=== PATIENT | female | born 1980 | race Caucasian/White ===

== ENCOUNTER 2020-02-02 14:57 | Outpatient (CLI) | payer OTHER, SELFPAY ==
--- NOTE | 2020-02-02 15:01 | ECG_ITS ---
Measurements Intervals [place] Rate: 92 P: 9 AK: 159 QRS: 19 QRSD: 85 T: 28 QT: 333 QTc: 412 Interpretive Statements SINUS RHYTHM LOW QRS VOLTAGE IN PRECORDIAL LEADS BORDERLINE T WAVE ABNORMALITY- ANT/INF LEADS BORDERLINE ECG Electronically Signed On 02-02-2020 15:27:16 [employer]IGHT HOUSEPERSON by Rigoberto Mansfield D.O.
[2020-02-02 15:41] LABS: Anion Gap 8 mmol/L (8-16); Blood Urea Nitrogen 10 mg/dL (7-17); Calcium 9.1 mg/dL (8.4-10.2); Carbon Dioxide 29 mmol/L (22-30); Chloride 102 mmol/L (98-107); Estimated Glomerular Filt Rate > 60; Glucose 118 mg/dL (65-105); Potassium 3.8 mmol/L (3.4-5.0); Sodium 139 mmol/L (137-145)
== END 2020-02-02 14:58 | disposition home or self-care (01) ==
LOC: ANHSURGERY 15:01
PROVIDERS: Anesthesiology; PCP Physician Assistant; Visit Provider Obstetrics & Gynecology Gynecology
DX: E11.9 Type 2 diabetes mellitus without complications (principal); F17.210 Nicotine dependence, cigarettes, uncomplicated; Z01.818 Encounter for other preprocedural examination; R94.31 Abnormal electrocardiogram [ECG] [EKG]
CPT/HCPCS: 36415; 80048; 93005

== ENCOUNTER 2020-02-06 00:53 | Outpatient (CLI) | payer OTHER, SELFPAY ==
[2020-02-06 18:38] LABS: SARS-CoV-2 RNA PCR Negative
== END 2020-02-06 00:54 | disposition home or self-care (01) ==
LOC: ANHCOVIDDT 00:53
PROVIDERS: PCP Physician Assistant; Visit Provider Obstetrics & Gynecology Gynecology
DX: Z01.818 Encounter for other preprocedural examination (principal); Z20.828 Contact with and (suspected) exposure to other viral communicable diseases
CPT/HCPCS: C9803; U0003

== ENCOUNTER 2020-02-09 10:37 | Inpatient (IN) | payer OTHER, SELFPAY ==
[2020-01-27 09:37] VITALS: BMI 47.0
[2020-02-09] VITALS (23 sets, daily range): BP systolic 103–154; BP diastolic 52–89; PULSE 61–106; RESP 12–25; TEMP 36.4–37.1; O2SAT 94–100; BMI 47.6
[2020-02-09] MEDS: KETOROLAC 15 MG/ML VIAL (*BKC) IV PUSH (06:37)
[2020-02-09] MEDS: ACETAMINOPHEN 500 MG TABLET 1000 MG PO (06:37)
[2020-02-09 06:42] LABS: Glucose Point of Care 107 (65-105)
[2020-02-09] MEDS: LACTATED RINGERS 1,000 ML 30 ML IV CONT ×2 (06:49→09:19)
--- NOTE | 2020-02-09 06:53 | WPDANESEPPF ---
Anes - Initial Pre Proc Eval Procedure: Operation Date: 02/09/20 09:00 Proposed Procedures p Diagnostic Laparoscopy, Possible Right Salpingo-Oophorectomy - Mirtha Vargas MD Date/Time: 02/09/20 06:53 Surgeon: Mirtha Vargas MD Pre Op Diagnosis: Right Ovarian Cyst Patient Data Age: 39 Gender: F Height: 5 ft 7 in Weight: 138 kg Last Vital Signs Temp 36.6 C 02/09/20 06:14 Pulse 83 02/09/20 06:14 Resp 18 02/09/20 06:14 BP 128/67 02/09/20 06:14 Pulse Ox 96 02/09/20 06:14 Allergies Allergy/AdvReac Type Severity Reaction Status Date / Time doxycycline Allergy Severe Hives Verified 01/27/20 09:23 amoxicillin [From Augmentin] Allergy Vomiting Verified 02/09/20 06:11 clavulanic acid Allergy Vomiting Verified 02/09/20 06:11 [From Augmentin] Sulfa (Sulfonamide Allergy Vomiting Verified 02/09/20 06:11 Antibiotics) Home Medications Medication Instructions Recorded Confirmed Type acetaminophen-codeine 1 tablet PO Q6H PRN 01/27/20 02/09/20 History ergocalciferol (vitamin D2) 1,250 mcg PO WEEKLY 01/27/20 02/09/20 History fiber 1 cap PO DAILY 01/27/20 02/09/20 History meloxicam 15 mg PO DAILY PRN 01/27/20 02/09/20 History metformin 500 mg PO DAILY 01/27/20 02/09/20 History montelukast 10 mg PO DAILY 01/27/20 02/09/20 History multivitamin 1 tablet PO DAILY 01/27/20 02/09/20 History omega-3 fatty acids [Fish Oil] 2,000 mg PO DAILY 01/27/20 02/09/20 History omeprazole 20 mg PO DAILY 01/27/20 02/09/20 History sertraline 150 mg PO DAILY 01/27/20 02/09/20 History Laboratory Tests 02/09/20 06:37 POC Capillary Glucose 107 mg/dl mg/dl (65-105) Patient hx anesthesia problems: none Family hx anesthesia problems: none PMFSH Past Medical History Medical History (Updated 02/09/20 @ 06:53 by Bryan Ma MD) Morbid obesity Surgical History Surgical History (Updated 02/09/20 @ 06:54 by Byran Ma MD) History of cholecystectomy Family History Family History Grandparent Family history of malignant melanoma Diabetes mellitus Sibling Family history of multiple sclerosis Father Family history of migraine headaches Hypertension Mother Family history of migraine headaches Family history of gastrointestinal disorder Social History Social History Smoking packs per day: 1.5 Smoking cigarettes per day: 30.0 Years smoked: 15 Smoking pack-years: 22.50 Smoking status: Former smoker Smoking end date: 01/26/14 Alcohol intake: never Living arrangements: with family Spiritual care concerns: No Anes - Eval Final PreProcedure Day of Procedure 02/09/20 06:53 Patient weight: morbidly obese Heart: regular rate and rhythm Lungs: clear to auscultation Airway: Mallampati scale class II Neurological: alert and oriented Last oral intake: >/= 8 hours ASA classification: III Emergent: no Anesthetic plan: proceed Anesthesia type and monitoring: general ETT and standard monitoring Informed Consent: The patient's anesthetic plan and its attendant risks and benefits were discussed with the patient/family/POA. Questions were solicited and answers provided to the satisfaction of the patient/family/POA.
--- NOTE | 2020-02-09 07:13 | PM.HPGS ---
History of Present Illness History of Present Illness Consent: Risks, benefits, and alternatives have been discussed and questions answered. Patient agrees to proceed with procedure. Chief complaint: Right Ovarian Cyst Narrative: Linda Howard is a 39 year old female with right ovarian cyst. Pain has persisted and by u/s cyst has increased slightly to 8.1x7x4.8 cm. Suspect endometrioma per the u/s findings. Reviewed options with patient and plan to proceed with laparoscopic management of cyst. D/w patient that no normal ovary is measured in the u/s and most likely will be performing right salpingo-oophorectomy. Risks of infection, bleeding, injury to internal organs (eg. bowel, bladder, ureters, tubes, uterus, ovaries), DVT, and general anesthesia discussed. Reviewed possible need for exploratory laparotomy if unable to safely do case laparoscopically. Patient questions answered and agrees to proceed. [facility] Past Medical History Medical History (Updated 02/09/20 @ 07:21 by Mirtha Vargas MD) Borderline diabetes mellitus Depression Elevated cholesterol GERD (gastroesophageal reflux disease) IBS (irritable bowel syndrome) Kidney stone Morbid obesity Surgical History Surgical History (Updated 02/09/20 @ 07:18 by Mirtha Vargas MD) History of cholecystectomy S/P LEEP Status post carpal tunnel release of both wrists Family History Family History Grandparent Family history of malignant melanoma Diabetes mellitus Sibling Family history of multiple sclerosis Father Family history of migraine headaches Hypertension Mother Family history of migraine headaches Family history of gastrointestinal disorder Social History Social History Smoking packs per day: 1.5 Smoking cigarettes per day: 30.0 Years smoked: 15 Smoking pack-years: 22.50 Smoking status: Former smoker Smoking end date: 01/26/14 Alcohol intake: never Living arrangements: with family Spiritual care concerns: No Meds Home Medications and Allergies Home Medications Medication Instructions Recorded Confirmed Type acetaminophen-codeine 1 tablet PO Q6H PRN 01/27/20 02/09/20 History ergocalciferol (vitamin D2) 1,250 mcg PO WEEKLY 01/27/20 02/09/20 History fiber 1 cap PO DAILY 01/27/20 02/09/20 History meloxicam 15 mg PO DAILY PRN 01/27/20 02/09/20 History metformin 500 mg PO DAILY 01/27/20 02/09/20 History montelukast 10 mg PO DAILY 01/27/20 02/09/20 History multivitamin 1 tablet PO DAILY 01/27/20 02/09/20 History omega-3 fatty acids [Fish Oil] 2,000 mg PO DAILY 01/27/20 02/09/20 History omeprazole 20 mg PO DAILY 01/27/20 02/09/20 History sertraline 150 mg PO DAILY 01/27/20 02/09/20 History Allergies Allergy/AdvReac Type Severity Reaction Status Date / Time doxycycline Allergy Severe Hives Verified 01/27/20 09:23 amoxicillin [From Augmentin] Allergy Vomiting Verified 02/09/20 06:11 clavulanic acid Allergy Vomiting Verified 02/09/20 06:11 [From Augmentin] Sulfa (Sulfonamide Allergy Vomiting Verified 02/09/20 06:11 Antibiotics) Vital Signs Vital Signs - 24 hr 02/09/20 06:14 Temperature 97.8 F Pulse Rate 83 Respiratory Rate 18 Blood Pressure 128/67 Pulse Oximetry 96 Exam Narrative: Exam Narrative: wt. 304 pounds Const: Nutritional Appearance: obese Resp: Effort & Inspection: normal respiratory effort Auscultation: clear to auscultation bilaterally Cardio: Rate: regular rate Rhythm: regular rhythm GI: Inspection: obesity GI Palp: Yes abdominal tenderness and Yes Soft to palpation : External Female Exam: normal external appearance Speculum Exam - Vagina: normal appearance of the vagina Speculum Exam - Cervix: normal appearance of the cervix Bimanual Exam- Adnexa, other: tender Assessment and Plan Assessment and plan (1) Ovarian cyst: Code(s): N83.209 - Unspecifi
--- NOTE | 2020-02-09 07:30 | WPDHPUPDATE1 ---
History and Physical Update Update Date/Time: 02/09/20 07:30 History and Physical has been reviewed, including an updated exam of the patient. There are NO changes in the patient's condition. Risks, benefits, and alternatives have been discussed and questions answered. Patient agrees to proceed with procedure.
--- NOTE | 2020-02-09 09:04 | PM.PROC ---
Procedure Note - Detailed Date of procedure: 02/09/20 Pre-op diagnosis: Right Ovarian Cyst Post-op diagnosis: same (plus endometrioma; adhesions) Procedure performed: diagnostic laparoscopy; exploratory laparotomy; RSO; adhesiolysis Description of procedure: The patient was taken to the operating room and placed in the dorsal lithotomy position under general anesthesia. She was prepped and draped in the usual sterile fashion. Bladder was drained with red rubber catheter. [place] speculum was placed in the vagina and the cervix is grasped on the anterior lip with a tenaculum. The internal os is stenotic therefore the acorn manipulator is placed. Speculum is removed. Attention is turned to the abdomen. A vertical skin incision is made at the base of the umbilicus. The abdomen is tented and the Veress needle placed. Water drop test was positive therefore the Veress needle was removed and a long Veress needle is requested and placed. The water drop test is within normal. The pneumoperitoneum was obtained to a patient pressure of 15. Opening patient pressure is 5mmHg. The Veress needle was then removed. The long 5mm trocars placed while tenting the abdomen with towel clamps. Intra-abdominal placement was confirmed with the laparoscopic. The patient is placed in Trendelenburg. A 5mm skin incision was made 2cm above the symphysis pubis in the midline. The blunt probe was used to investigate the pelvis. The right ovary is noted to be quite enlarged and is immobile. It does not move even 1cm in any direction. The blunt probe was used to take down adhesions from the small bowel to the left pelvic sidewall. The left tube and ovary appeared grossly normal. The uterus appears small and pale. There are adhesions from the right tube to the pelvic sidewall as well. There is increased vasculature between the right tube and the ovary. Decision was made to perform exploratory laparotomy due to the immobility of the mass. The Pfannenstiel skin incision is made with a scalpel through the previous midline suprapubic incision. This is extended to the fascia which was nicked in the midline. The fascial incision is extended laterally using Gilman scissors. Leonelasner was used to tent the fascia which was then dissected off using sharp and blunt dissection. The rectus muscles are in the midline. The peritoneum was tented and entered with Metzenbaum scissors. The incision is extended with blunt traction. The bowel is packed away using moist laparotomy sponges and the Blank is placed. The pelvis is manually explored and the mass is noted to be densely adherent to all the surrounding tissues posteriorly and laterally. There is no bowel attached to the mass. Blunt dissection is used to release the mass from the underlying tissues. During this process the cyst is ruptured and noted to be a chocolate cyst consistent with an endometrioma. The mass was then able to be grasped with a large peon and the remainder of the adhesions taken down using sharp and blunt dissection. Once the ovary and tube are free, the minimally curved Z clamp is used to clamp the infundibulopelvic ligament and cross-clamping the utero-ovarian ligament. The specimen is amputated. The pedicles were tied off using 0 Vicryl in a Shai stitch. Good hemostasis is noted at the suture line. The pelvis is irrigated and again explored. The uterus has good mobility. The left tube and ovary again inspected and appeared grossly normal. No significant active endometriosis is noted. The sponge and instruments are removed. The fascia is closed using 0 Vicryl in a running stitch. Subcutaneous tissues are irrigated and made hemostatic using Bovie cautery. Skin is closed using 4 0 Vicryl in a subcuticular fashion. Dermaflex was placed over the incision. Sponge instrument and needle counts are correct per the OR staff. Anesthesia: GETA Surgeon: Mirtha Vargas MD Estimated blood loss (mL): 100 Drains
--- NOTE | 2020-02-09 09:23 | PM.DS ---
DS: Admitting Diagnosis Admitting Diagnosis Admitting Diagnosis: right ovarian cyst DS: Discharge Diagnosis Discharge Diagnosis (1) Ovarian cyst: Code(s): N83.209 - Unspecified ovarian cyst, unspecified side Status: Acute DS: Summary Hospital Course Reason for hospitalization: post op care Hospital Course: Patient admitted after converting laparoscopy to laparotomy due to adhesions. Patient underwent RSO. Tolerating regular diet, voiding, and ambulating on discharge. Status at Discharge Functional status at discharge: independent ambulation Overall status at discharge: patient is progressing back to baseline Time Spent with Patient Time attestation: Total time spent providing and/or coordinating discharge services: DS: Data Data Completed and Pending Pending studies at discharge: Pending at discharge 02/09/20 08:46 Surgical [PTH] Routine Labs on day of discharge: Labs from last 24 hours 02/09/20 06:37 POC Capillary Glucose 107 Discharge Plan Discharge Attending physician on discharge: Mirtha Vargas Discharging Clinician: Mirtha Vargas Anticipated Discharge Date/Time: 02/10/20 13:51 Patient Disposition: Home, Self-Care Activity: may shower, may drive after 2 weeks and pelvic rest Diet: diabetic Wound Care Instructions: incision open to air Stand Alone Forms: General Discharge Instructions Follow-up/Referrals: Mirtha Vargas MD [Physician] - 1 Week Discharge Medications: New hydrocodone-acetaminophen 5-325 mg Tablet 1 tablet PO Q3H PRN (Reason: Pain Rated 5 Or Less) Qty: 30 RF: 0 Continued multivitamin Tablet 1 tablet PO DAILY RF: 0 metformin 500 mg tablet 500 mg PO DAILY RF: 0 meloxicam 15 mg tablet 15 mg PO DAILY PRN (Reason: Pain) RF: 0 sertraline 100 mg tablet 150 mg PO DAILY RF: 0 omeprazole 20 mg capsule,delayed release(DR/EC) 20 mg PO DAILY RF: 0 montelukast 10 mg tablet 10 mg PO DAILY RF: 0 ergocalciferol (vitamin D2) 1,250 mcg (50,000 unit) capsule 1,250 mcg PO WEEKLY RF: 0 fiber Capsule 1 cap PO DAILY RF: 0 omega-3 fatty acids Capsule 2,000 mg PO DAILY RF: 0 Discontinued acetaminophen-codeine 300-30 mg tablet 1 tablet PO Q6H PRN (Reason: Pain) RF: 0 Date of admission: 02/09/20 10:37 Primary Care Provider: JunaidMalika Admitting Provider: Mirtha Vargas Attending physician on admission: Mirtha Vargas Condition: Stable
[2020-02-09 09:31] LABS: Glucose Point of Care 121 (65-105)
[2020-02-09] MEDS: fentaNYL CITRATE INJ (*CRX) 100 MCG/2 ML VIAL 25 MCG IV PUSH ×10 (09:34→09:52)
[2020-02-09] MEDS: HYDROmorphone HCL INJ (*CRX) 1 MG/ML SYR 0.5 MG IV PUSH ×8 (09:58→10:32)
[2020-02-09] MEDS: DEXTROSE 5%/LACTATED RINGERS 1,000 ML 125 ML IV CONT ×2 (11:13→19:20)
[2020-02-09] MEDS: KETOROLAC 30 MG/ML VIAL (*BKC) IV PUSH (11:13)
[2020-02-09] MEDS: FENTANYL 600MCG/NS30MLPCA(*CRX 600 MCG/30 ML PCA.VIAL IV CONT (11:19)
--- NOTE | 2020-02-09 12:19 | PC.NURSE ---
This patient, Linda Howard, was received from PACU on 02/09/20 at 1046. Patient/family oriented to unit policies and routines
[2020-02-09] MEDS: ONDANSETRON INJ 4 MG/2 ML VIAL IV PUSH ×2 (14:15→23:42)
[2020-02-10] VITALS: BP 117/64; PULSE 98; RESP 16; TEMP 37.3; O2SAT 95
[2020-02-10 02:00] VITALS: RESP 16; O2SAT 98
[2020-02-10] MEDS: HYDROcodone/acetaminophen (*CRX) 10-325 MG TABLET 1 TAB PO ×2 (03:09→07:02)
[2020-02-10 04:00] VITALS: BP 123/64; PULSE 88; RESP 16; TEMP 36.8; O2SAT 95
[2020-02-10 05:05] LABS: Basophils Percent Auto 0.2 % (0.2-1.2); Eosinophils Absolute Auto 0.1 K/mm3 (0-0.3); Eosinophils Percent Auto 0.9 % (0-4.4); Hematocrit 34.1 % (37.0-47.0); Hemoglobin 10.6 g/dL (12.0-15.0); Immature Granulocyte Absolute 0.06 K/mm3 (0.00-0.031); Immature Granulocyte Percent A 0.4 % (0-0.5); Lymphocytes Absolute Auto 2.47 K/mm3 (0.9-3.2); Mean Corpuscular HGB Conc 31.1 g/dl (32-36); Mean Corpuscular Hemoglobin 25.8 pg (26-34); Mean Platelet Volume 10.6 fl (7.4-10.4); Monocytes Absolute Auto 0.6 K/mm3 (0.1-0.6); Monocytes Percent Auto 4.4 % (2.6-8.5); Neutrophils Absolute Auto 10.4 K/mm3 (1.3-6.7); Neutrophils Percent Auto 76.1 % (45.5-73.1); Platelet Count Result 315 k/mm3 (150-375); Red Blood Count 4.11 M/mm3 (4.2-5.4); White Blood Count 13.7 K/mm3 (4.5-10.0)
[2020-02-10] MEDS: IBUPROFEN 600 MG TABLET PO ×2 (07:03→13:16)
[2020-02-10] MEDS: PANTOPRAZOLE 40 MG TABLET PO (07:18)
--- NOTE | 2020-02-10 07:39 | WPDANESPN ---
Anes - Prog Note Post-Op Date/Time: 02/10/20 07:39 Cardiovascular status: normal Respiratory status: normal Airway patency: baseline Mental status: baseline Post-Op hydration status: normal Vital Signs: Last Vital Signs Temp 36.8 C 02/10/20 04:00 Pulse 88 02/10/20 04:00 Resp 16 02/10/20 04:00 BP 123/64 02/10/20 04:00 Pulse Ox 95 02/10/20 04:00 Pain Score (VAS): 04/14 I/O: Intake & Output 02/09/20 02/09/20 02/10/20 15:59 23:59 07:59 Intake Total 300 1300 1270 Output Total 75 500 800 Balance 225 800 470 Laboratory Tests 02/10/20 03:26 02/09/20 02/10/20 09:29 03:26 WBC 13.7 H RBC 4.11 L Hgb 10.6 L Hct 34.1 L MCV 83.0 MCH 25.8 L MCHC 31.1 L RDW 14.0 Plt Count 315 MPV 10.6 H Immature Gran % (Auto) 0.4 Neut % (Auto) 76.1 H Lymph % (Auto) 18.0 L [place] % (Auto) 4.4 Eos % (Auto) 0.9 Baso % (Auto) 0.2 Lymph # (Auto) 2.47 [place] # (Auto) 0.6 Eos # (Auto) 0.1 Baso # (Auto) 0.0 Abs Immat Gran (auto) 0.06 H Absolute Neuts (auto) 10.4 H Absolute Nucleated RBC 0.0 Nucleated RBC % 0.0 POC Capillary Glucose 121 H Post-procedural complaints: none Patient Feedback: Patient satisfied with anesthetic care.
--- NOTE | 2020-02-10 07:50 | PM.GYNPNOP ---
RELIEF CHARGE NURSE - A/P Postoperative Procedures: Procedures Operation Date: 02/09/20 09:00 Actual Procedures Side Surgeon p Diagnostic Laparoscopy, Open Laparotomy Right Salpingo-Oophorectomy Mirtha Vargas MD Postoperative day: 1 Postoperative status: doing well Postoperative plan: routine post-op care and discharge (once tolerates regular diet today) Time Spent With Patient Time: Total time spent is greater than 50% in coordination of care (as documented) at patient's floor/unit and/or counseling patient: Time with patient: less than 15 minutes RELIEF CHARGE NURSE- PN:Subj Post-Op Subjective Date/time seen: 02/10/20 07:50 Subjective: patient reports feeling better, patient desires discharge, pain is well controlled and patient is tolerating oral intake Exam Narrative: Exam Narrative: abdomen soft, nd Inc c/d/i RELIEF CHARGE NURSE - PN: Obj Data Vital Signs Vital Signs: Vital Signs - 24 hr 02/09/20 09:19 02/09/20 09:30 02/09/20 09:45 Temperature 97.7 F Pulse Rate 73 68 61 Respiratory Rate 25 H 17 12 Blood Pressure 136/68 129/70 133/79 Pulse Oximetry 100 100 100 02/09/20 10:00 02/09/20 10:15 02/09/20 10:30 Temperature Pulse Rate 80 64 85 Respiratory Rate 15 17 18 Blood Pressure 139/72 131/89 113/68 Pulse Oximetry 100 99 99 02/09/20 10:50 02/09/20 11:00 02/09/20 11:15 Temperature 98.5 F Pulse Rate 93 66 89 Respiratory Rate 18 18 18 Blood Pressure 137/70 107/63 111/63 Pulse Oximetry 96 97 97 02/09/20 11:19 02/09/20 11:30 02/09/20 12:00 Temperature 98.3 F Pulse Rate 70 97 Respiratory Rate 18 18 Blood Pressure 103/52 L 114/65 Pulse Oximetry 96 96 94 02/09/20 12:15 02/09/20 13:00 02/09/20 13:15 Temperature Pulse Rate 100 Respiratory Rate 16 18 16 Blood Pressure 154/52 H Pulse Oximetry 97 98 98 02/09/20 14:00 02/09/20 14:15 02/09/20 15:15 Temperature 97.5 F L Pulse Rate 106 H Respiratory Rate 18 16 18 Blood Pressure 127/62 Pulse Oximetry 97 98 95 02/09/20 15:45 02/09/20 17:15 02/09/20 20:00 Temperature 98.0 F 98.7 F Pulse Rate 99 78 Respiratory Rate 18 18 14 Blood Pressure 132/70 108/63 Pulse Oximetry 95 96 96 02/09/20 22:00 02/10/20 00:00 02/10/20 02:00 Temperature 99.1 F Pulse Rate 98 Respiratory Rate 16 16 16 Blood Pressure 117/64 Pulse Oximetry 97 95 98 02/10/20 04:00 Temperature 98.3 F Pulse Rate 88 Respiratory Rate 16 Blood Pressure 123/64 Pulse Oximetry 95 Intake/Output Intake/Output: Intake & Output 02/07/20 02/08/20 02/09/20 02/10/20 23:59 23:59 23:59 23:59 Intake Total 1600 1270 Output Total 575 1600 Balance 1025 -330 Meds/Results Medications: Active Medications Generic Name Dose Route Start Last Admin Trade Name Freq PRN Reason Stop Dose Admin Hydrocodone Bitart/Acetaminophen 1 tab 02/09/20 10:37 Hydrocodone/Acetaminophen (*Crx) 5-325 Mg Tablet PO Q3H PRN Pain Rated 5 or Less Hydrocodone Bitart/Acetaminophen 1 tab 02/09/20 10:37 02/10/20 07:02 Hydrocodone/Acetaminophen (*Crx) 10-325 Mg Tablet PO 1 tab Q3H PRN Administration Pain Rated 6 or Greater Dextrose/Lactated Ringer's 1,000 mls @ 125 mls/hr 02/09/20 10:37 02/10/20 03:38 Dextrose 5%/Lactated Ringers IV CONT Not Given .Q8H MITCHELL Fentanyl Citrate 600 mcg in 30 mls @ 0 mls/hr 02/09/20 10:37 02/10/20 03:05 Fentanyl 600 Mcg/Ns 30 Ml Tower Cleaner IV CONT Infused .Q0M PRN Titration DRUG SAFETY DATA MANAGEMENT SPECIALIST Management Protocol Per Protocol Ibuprofen 600 mg 02/09/20 10:37 02/10/20 07:03 Ibuprofen 600 Mg Tablet PO 600 mg Q6H PRN Administration Cramping Ketorolac Tromethamine 30 mg 02/09/20 10:37 02/09/20 11:13 Ketorolac 30 Mg/Ml Vial (*Bkc) IV PUSH 02/14/20 10:38 30 mg Q6H PRN Administration Pain Rated 4-6 Metformin HCl 500 mg 02/10/20 09:00 Metformin Hcl 500 Mg Tablet PO DAILY MITCHELL Montelukast Sodium 10 mg 02/10/20 09:00 Montelukast Sodium 10 Mg Tablet PO DAILY MITCHELL Ondansetron
[2020-02-10 08:15] VITALS: BP 119/61; PULSE 85; RESP 16; TEMP 36.3; O2SAT 95
[2020-02-10] MEDS: metFORMIN HCL 500 MG TABLET PO (08:23)
[2020-02-10] MEDS: SERTRALINE HCL 50 MG TABLET 150 MG PO (08:24)
[2020-02-10] MEDS: SIMETHICONE 80 MG TAB.CHEW PO ×2 (08:24→13:16)
[2020-02-10] MEDS: MONTELUKAST SODIUM 10 MG TABLET PO (08:24)
[2020-02-10] MEDS: HYDROcodone/acetaminophen (*CRX) 5-325 MG TABLET 1 TAB PO ×2 (10:11→13:15)
== END 2020-02-10 13:39 | disposition home or self-care (01) | DRG 742 ==
LOC: ANHOB2 11:01
PROVIDERS: Admitting Provider Obstetrics & Gynecology Gynecology; PCP Physician Assistant; Visit Provider Obstetrics & Gynecology Gynecology
PROC: 0UT50ZZ Resection of Right Fallopian Tube, Open Approach (ICD-10-PCS; CPT 49320; principal; 2020-02-09 09:00)
DX: N83.291 Other ovarian cyst, right side (principal); Z68.42 Body mass index [BMI] 45.0-49.9, adult; E66.01 Morbid (severe) obesity due to excess calories; N73.6 Female pelvic peritoneal adhesions (postinfective); R73.03 Prediabetes; F32.9 Major depressive disorder, single episode, unspecified; K21.9 Gastro-esophageal reflux disease without esophagitis; K58.9 Irritable bowel syndrome, unspecified; Z90.49 Acquired absence of other specified parts of digestive tract; Z87.891 Personal history of nicotine dependence; Z53.31 Laparoscopic surgical procedure converted to open procedure
CPT/HCPCS: 36415; 85025; 88305; A9270; J0330; J1170; J1885; J2250; J2405; J2704; J3010; J7030; J7120; J7121; Q9968

== ENCOUNTER 2024-04-08 12:58 | Emergency (ER) | payer OTHER, BC, SELFPAY ==
--- NOTE | ~2024-04-08 | XR_ITS ---
EXAMINATION: XR hip LT 2V w AP pelvis DATE: 04/08/2024 14:13 INDICATION: Left hip pain TECHNIQUE: Anteroposterior view of the pelvis and anteroposterior and frog-leg lateral views of the l eft hip were obtained. COMPARISON: None. FINDINGS: Bone alignment is normal. No fracture or suspected osteonecrosis. Polyarticular osteoarthritis, mild at the left hip and sacroiliac joints and moderate at the right hip and sacroiliac joints. Suture ginger e and surgical clips in the right lower quadrant likely related to prior appendectomy. IMPRESSION: 1. Mild left-sided and moderate right-sided hip and sacroiliac osteoarthritis. No acute osseous abnor mality. Reviewed, dictated and finalized at location B. PSYCHOTHERAPIST OR THERAPIST IMPRESSION: 1. Mild left-sided and moderate right-sided hip and sacroiliac osteoarthritis. No acute osseous abnormality.
[2024-04-08 13:05] VITALS: BP 140/80; PULSE 72; RESP 18; TEMP 36.8; O2SAT 98
--- NOTE | 2024-04-08 13:30 | ED.EXTPRO ---
HPI - Extremity Problem General Chief complaint: Extremity Problem,Nontraumatic Stated complaint: left hip pain Time Seen by Provider: 04/08/24 13:06 Source: patient Mode of arrival: ambulatory Limitations: no limitations History of Present Illness HPI Narrative: This is a 43 year old female that presents to the ER for left hip pain. Ongoing since yesterday. Pain is worse with movement and ambulation and improved with rest. She has been taking home pain medication with little relief. Reports decreased ROM due to pain. No recent injuries. Denies numbness Related Data Home Medications ?Medication ?Instructions ?Recorded ?Confirmed ?Last Taken ?Type ergocalciferol (vitamin D2) 1,250 1,250 mcg PO WEEKLY 01/27/20 04/08/24 04/08/24 History mcg (50,000 unit) capsule fiber 1 cap PO DAILY 01/27/20 04/08/24 04/08/24 History metformin 500 mg tablet 500 mg PO DAILY 01/27/20 04/08/24 04/08/24 History montelukast 10 mg tablet 10 mg PO DAILY 01/27/20 04/08/24 04/08/24 History multivitamin 1 tablet PO DAILY 01/27/20 04/08/24 04/08/24 History omeprazole 20 mg capsule,delayed 20 mg PO DAILY 01/27/20 04/08/24 04/08/24 History release venlafaxine 75 mg capsule,extended mg PO 04/08/24 04/08/24 History release 24 hr Allergies Allergy/AdvReac Type Severity Reaction Status Date / Time doxycycline Allergy Severe Hives Verified 04/08/24 13:08 amoxicillin (From Augmentin) AdvReac Vomiting Verified 04/08/24 14:52 clavulanic acid (From AdvReac Vomiting Verified 04/08/24 14:52 Augmentin) Sulfa (Sulfonamide AdvReac Vomiting Verified 04/08/24 14:52 Antibiotics) Review of Systems Review of Systems: CONSTITUTIONAL: Denies fever MUSCULOSKELETAL: Reports joint pain, and myalgia. NEUROLOGIC: Denies numbness, or weakness. P All systems reviewed & are unremarkable except as noted in HPI and below PMFSH Past Medical History Medical History (Updated 04/08/24 @ 14:56 by Emily Moura PA-C) Borderline diabetes mellitus Elevated cholesterol Kidney stone IBS (irritable bowel syndrome) GERD (gastroesophageal reflux disease) Depression Morbid obesity Surgical History Surgical History (Updated 02/09/20 @ 07:18 by Mirtha Vargas MD) Status post carpal tunnel release of both wrists S/P LEEP History of cholecystectomy Family History Family History Grandparent Family history of malignant melanoma Diabetes mellitus Sibling Family history of multiple sclerosis Father Family history of migraine headaches Hypertension Mother Family history of migraine headaches Family history of gastrointestinal disorder Social History Social History Smoking packs per day: 1.5 Smoking cigarettes per day: 30.0 Years smoked: 15 Smoking pack-years: 22.50 Smoking status: Former smoker Smoking end date: 01/26/14 Alcohol intake: never Living arrangements: with family Spiritual care concerns: No Exam Narrative: GENERAL: Well-appearing, well-nourished, and in no acute distress. HEAD: Normocephalic, atraumatic. EYES: EOMI. EXTREMITIES: Pain with active ROM in the left hip. No edema or erythema. Normal DP pulse. Normal sensation SKIN: Warm, dry, no rash. NEURO: No focal deficits. Alert and oriented x3. PSYCH: Normal mood and affect Course Course Emergency Course: patient updated on workup and agrees with plan of care Vital Signs Vital signs: Vital Signs Temperature 98.2 F 04/08/24 13:05 Pulse Rate 72 04/08/24 13:05 Respiratory Rate 18 04/08/24 13:05 Blood Pressure 140/80 04/08/24 13:05 Pulse Oximetry 98 04/08/24 13:05 Oxygen Delivery Room Air 04/08/24 13:05 Temperature 98.2 F 04/08/24 13:05 Pulse Rate 72 04/08/24 13:05 Respiratory Rate 18 04/08/24 13:05 Blood Pressure 140/80 04/08/24 13:05 Pulse Oximetry 98 04/08/24 13:05 Oxygen Delivery Room Air 04/08/24 13:05 MDM - Extremity (Nontraumatic) MDM Narrative Medical decision making narrative: Patient presents emergency department for left hip pain. Ongoing since yesterday. Patient is neurovascularly intact. Left hip/pelvis x-ray shows mild left-sided and moderate right-sided hip and sacroiliac osteoarthritis. No acute osseous abnormality. Patient was updated on her workup and agrees with plan of care. She is to follow up with orthopedics. She was given warnings to return to the ER Differential Diagnosis Differential diagnosis: Likely other (osteoarthritis, muscle strain, hip sprain) Imaging Data Radiologist's impression: ITS Impressions Hip/Pelvis X-Ray 04/08/24 14:16 IMPRESSION: 1. Mild left-sided and moderate right-sided hip and sacroiliac osteoarthritis. No acute osseous abnormality. Critical Care Time Critical Care Time Critical Care Time: No Discharge Plan Discharge Clinical Impression: Osteoarthritis Qualifiers: Osteoarthritis location: hip Osteoarthritis type: unspecified Laterality: left Qualified Code(s): M16.12 - Unilateral primary osteoarthritis, left hip Patient Disposition: Home, Self-Care Condition: Stable Instructions: Osteoarthritis (ED) Additional Instructions: Return to the ER if you experience fever, redness and swelling of your leg, weakness, numbness, bowel/bladder incontinence, or any other symptoms that are concerning to you Rest, use ice/heat, take anti-inflammatories (Aleve, Ibuprofen, Naproxen, etc) or Tylenol as needed for pain as well as muscle relaxer (Flexeril) as needed for pain. Muscle relaxers can make you drowsy, do not drive if you take this Follow up with orthopedics Patient Language: Venezuelan Prescriptions: New cyclobenzaprine 10 mg tablet 10 mg PO TID PRN (Reason: muscle spasm) Qty: 14 0RF No Action venlafaxine 75 mg capsule,extended release 24hr PO multivitamin Tablet 1 tablet PO DAILY metformin 500 mg tablet 500 mg PO DAILY omeprazole 20 mg capsule,delayed release(DR/EC) 20 mg PO DAILY Patient Comments: take 2 tabs montelukast 10 mg tablet 10 mg PO DAILY ergocalciferol (vitamin D2) 1,250 mcg (50,000 unit) capsule 1,250 mcg PO WEEKLY Rx Instructions: twice a week. fiber Capsule 1 cap PO DAILY hydrocodone-acetaminophen 5-325 mg Tablet 1 tablet PO Q3H PRN (Reason: Pain Rated 5 Or Less) Qty: 30 0RF Follow-up/Referrals: Junaid,SHRUTHI Culp [Primary Care Provider] - Graham Haddad MD [Physician] -
[2024-04-08] MEDS: ACETAMINOPHEN 500 MG TABLET 1000 MG PO (13:39)
--- OUTSIDE RECORDS SUMMARY | 2024-04-08 14:45 | XMS_ITS | Data Portability ---
Author Organization [facility] ANGELAKalen Meeks Address [address] [place] [address] Care Team Providers Care Riding Instructor Name Role Phone ISRAEL POP Primary Care Provider Assessment No assessment recorded. Plan of Treatment Reminders Order Date Submit Date Provider Last Modified By Organization Details Last Modified Time Details Appointments None recorded. Lab None recorded. Referral None recorded. Procedures polysomnogr aphy, titration study (PROC) - patient is very fatigued, exhausted, despite cpap nightly use. needs re-titratio n for new settings. 2023 024 [email or web address] 0 [facility] ([facility]), [address] [facility] [address], [place], [address], 5 18:02:11 Surgeries None recorded. Imaging CT, neck, soft tissue, w/ contrast 2023 024 [facility] Radiology, [address] [facility], [place], [address], 4 09:47:25 Medication Orders Wegovy 0.25 mg/0.5 mL subcutaneou s pen injector 2023 024 [id number], [address] [place], [place], [id number], 4 18:01:33 Patient TargetsNo targets recorded. Patient Instructions Encounter Date Encounter Id Patient Instructions Last Modified By Organization Details Last Modified Time 08/13/2023 [id number] A healthy lifestyle: care instructions [email or web address] Not available 08/13/2023 18:01:18 Reason for Referral None Reported. Results Created Date Observation Date Name Description Value Unit Range Abnormal Flag Note LastModifiedBy Organization Detail LastModifiedTime 08/29/1908/29/2023 CT, neck, soft tissu e, w/ contr ast No observ ation record ed. [facility] [address], [place], [address], 08/29/2023 14:47:54 Result Notes None recorded. Problems Name Problem SNOMED Code Status Onset Date Resolution Date Notes Provider Name and Address Organization Details Recorded Time Bone spur of right hip 7610520502495 07 Active 2023 MONROE Loera Attn: Ranjith tracey,[address] [facility], [place], [address], [place] - [facility] 4 17:46:22 Body mass index 40+ - severely obese 198281073 Active 2023 MONROE Loera Attn: Ranjith tracey,[address] [facility], [place], [address], [place] [facility] 4 17:46:23 Obesity 729335780 Active 2023 MONROE Loera Attn: Ranjith tracey,[address] [facility], [place], [address], [place] [facility] 4 17:46:27 Prediabetes 234329317 Active 2023 MONROE Loera Attn: Ranjith tracey,[address] [facility], [place], [address], [place] [facility] 4 17:46:54 Insulin resistance 776394702 Active 2023 MONROE Loera Attn: Ranjith tracey,[address] [facility], [place], [address], [place] [facility] 4 17:46:55 Major depressive disorder 004328827 Active 2023 MONROE Loera Attn: Accountgela g,[address] [facility], [place], [address], [place] [facility] 4 17:47:10 Hyperlipide gareth 64608048 Active 2023 MONROE Loera Attn: Accountgela g,[address] [facility], [place], [address], [place] [facility] 4 17:47:25 Gastroesoph ageal reflux disease without esophagitis 232571122 Active 2023 MONROE Loera Attn: Accountin g,[address] [facility], [place], [address], [place] [facility] 4 17:47:56 Allergic rhinitis 28019115 Active 2023 MONROE Loera Attn: Accountgela g,[address] [facility], [place], [address], [place] [facility] 4 17:48:11 Obstructive sleep apnea syndrome 01359905 Active 2023 MONROE Loera Attn: Accountgela g,[address] [facility], [place], [address], [place] [facility] 4 17:49:53 Problem Notes None recorded. Procedures Surgical History None recorded. Imaging Results Imaging Date Name Status LastModified by Organiz ation Details LastModified Time 08/29/2023 CT, neck, soft tissue, w/ contrast completed [facility], [place], [address], 08/29/2023 14:47:54 Procedure Notes None recorded. Medical Equipment None Reported. Allergies Allergen ID Allergen Name Allergen Category Reaction Reaction Severity Criticality Documentation Date Start Date Code Code System Note Provider Name and Address Organization Details Recorded Time 121311 doxycycli ne Not available hives mild low 08/13/2023 3640 RxNorm Not Available Not Available Not Available 586585 Augmentin medicatio n diarrhea vomiting severe severe high 08/13/2023 12628 2 RxNorm Not Available Not Available Not Available 179913 Substance with sulfonami de structure and antibacte rial mechanism of action (substanc e) medicatio n diarrhea vomiting severe Not available high 08/13/2023 11613 8003 SNOMED Not Available Not Available Not Available Medications Name Sig Start Date Stop Date Status Note LastModified by Organization Details LastModified Time metformin 500 mg tablet TAKE 1 TABLET BY MOUTH EVERY DAY 2023 active Not Available Not Available Not Avai lable bupropion HCl SR 150 mg tablet,12 hr sustained -release TAKE 1 TABLET BY MOUTH DAILY active Not Available Not Available No t Available fluconazo le 150 mg tablet TAKE 1 TABLET BY MOUTH EVERY OTHER DAY FOR 3 DOSES 08/12 completed Patient stated she is no longer taking this medicati on. Not Available Not Available Not Available prednison e 20 mg tablet TAKE 2 TABLETS BY MOUTH EVERY DAY FOR 5 DAYS 08/12 completed Patient stated she is no longer taking this medicati on. Not Available Not Available Not Available sertralin e 100 mg tablet TAKE 1 AND 1/2 TABLETS BY MOUTH DAILY active Not Available Not Available No t Available metronida zole 500 mg tablet 08/12 completed Patient stated she is no longer taking this medicati on. Not Available Not Available Not Available ciproflox acin 500 mg tablet 08/12 completed Patient stated she is no longer taking this medicati on. Not Available Not Available Not Available omeprazol e 40 mg capsule,d elayed release TAKE ONE CAPSULE BY MOUTH EVERY DAY BEFORE A MEAL. active Not Available Not Available No t Available oxycodone -acetamin ophen 5 mg-325 mg tablet TAKE 1 TABLET BY MOUTH EVERY 6 HOURS NEEDED FOR PAIN 08/12 completed Patient stated she is no longer taking this medicati on. Not Available Not Available Not Available hydrocort isone 2.5 % lotion APPLY 1 APPLICAT ION THREE TIMES DAILY PER DAY NEEDED 08/12 completed Patient stated she is no longer taking this medicati on. Not Available Not Available Not Available phenazopy ridine 100 mg tablet TAKE 1 TABLET BY MOUTH THREE TIMES DAILY NEEDED FOR PAIN. 08/12 completed Patient stated she is no longer taking this medicati on. Not Available Not Available Not Available monteluka st 10 mg tablet TAKE 1 TABLET BY MOUTH EVERY DAY NEEDED 2024 active Not Available Not Available Not Avai lable hydroxyzi ne HCl 25 mg tablet TAKE 1 TABLET BY MOUTH EVERY 6 HOURS NEEDED active Not Available Not Available No t Available ergocalci ferol (vitamin D2) 1,250 mcg (50,000 unit) capsule TAKE 1 CAPSULE BY MOUTH WEEKLY 2024 active Not Available Not Available Not Avai lable levofloxa abbey 500 mg tablet 08/12 completed Patient stated she is no longer taking this medicati on. Not Available Not Available Not Available cefdinir 300 mg capsule TAKE 1 CAPSULE BY MOUTH EVERY 12 HOURS FOR 7 DAYS 08/12 completed Patient stated she is no longer taking this medicati on. Not Available Not Available Not Available colestipo l 1 gram tablet Take 2 tablets every day by oral route. active Not Available Not Available No t Available rosuvasta tin 10 mg tablet TAKE 1 TABLET BY MOUTH DAILY active Not Available Not Available No t Available Multiple Vitamin, Womens tablet Take 1 tablet every day by oral route. active Not Available Not Available No t Available nitrofura ntoin monohydra te/macroc rystals 100 mg capsule 08/12 completed Patient stated she is no longer taking this medicati on. Not Available Not Available Not Available PreviDent 5000 Booster Plus 1.1 % dental paste USE DIRECTED 08/12 completed Not Available Not Available Not Available Wegovy 0.25 mg/0.5 mL subcutane ous pen injector Inject by subcutan eous route for 28 days. 2023 active Not Available Not Available Not Avai lable sertralin e 200 mg capsule TAKE ONE CAPSULE BY MOUTH DAILY 08/12 completed Not Available Not Available Not Available Zepbound 2.5 mg/0.5 mL subcutane ous pen injector Inject 2.5 mg every week by subcutan eous route. 2023 active Not Available Not Available Not Avai lable Vitals Date Recorded Body weight Body mass index (BMI) Body height Heart rate Oxygen saturation Oxygen saturation in Arterial blood by Pulse oximetry Systolic blood pressure Diastolic blood pressure Provider Name and Address Organization Details Last Updated DateTime 4 439717. 7 g 51.2 kg/m2 170.18 cm 88 /min 97 % 97 % 138 mm[Hg] 74 mm[Hg] Prabha Crowder [place] - [facility] 17:33:04 Date Recorded Respiratory rate Provider Name a nd Address Organization Details Last Updated DateTime 08/13/2023 18 /min MONROE Loera Attn: Accounting,[address] [facility], [place], [address], [place] - [facility] 08/13/2023 18:04:17 Social History Question Answer Notes LastModified by Organizat ion Details LastModified Time Tobacco Smoking Status Former Smoker 8 years ago Prabha Crowder MA null, [place] - [facility] 08/13/2023 17:30:37 Do You Have An Advance Directive? No Information not available 08/13/2023 What Is Your Level Of Alcohol Consumption? Occasional Information not available 08/13/2023 Are You Blind Or Do You Have Difficulty Seeing? Yes Glasses Information not available 08/13/2023 What Is Your Level Of Caffeine Consumption? Heavy Information not available 08/13/2023 In The 14 Days Before Symptom Onset, Have You Had Close Contact With A Laboratory-confir med COVID-19 While That Case Was Ill? No Information not available 08/13/2023 In The 14 Days Before Symptom Onset, Have You Had Close Contact With A Person Who Is Under Investigation For COVID-19 While That Person Was Ill? No Information not available 08/13/2023 Have You Been To An Area Known To Be High Risk For COVID-19? No Information not available 08/13/2023 Are You Currently Employed? Yes Information not available 08/13/2023 Are You Deaf Or Do You Have Serious Difficulty Hearing? No Information not available 08/13/2023 What Type Of Diet Are You Following? REGULAR Information not available 08/13/2023 What Is Your Occupation? [employer] Information not available 08/13/2023 Are There Any Guns Present In Your Home? No Information not available 08/13/2023 What Was The Date Of Your Most Recent Tobacco Screening? 08/13/2023 Information not available 08/13/2023 What Is Your Relationship Status? Information not available 08/13/2023 Do You Use Your Seat Belt Or Car Seat Routinely? Yes Information not available 08/13/2023 Do You Have Smoke And Carbon Monoxide Detectors In Your Home? Yes Information not available 08/13/2023 Do You Feel Stressed (tense, Restless, Nervous, Or Anxious, Or Unable To Sleep At Night)? [id number] Information not available 08/13/2023 Do You Use Any Illicit Or Recreational Drugs? No Information not available 08/13/2023 Do You Use Sunscreen Routinely? Yes Information not available 08/13/2023 Has Tobacco Cessation Counseling Been Provided? No Information not available 08/13/2023 Sex: Female Functional Status Question Answer Note LastModified by Organization D etails LastModified Time Are you able to care for yourself? Yes Information n ot available 08/13/2023 What is your exercise level? None Information not available 08/13/2023 Mental Status None recorded. Family History Nothing Reported. Medical History No medical history recorded. Gynecological History Statement/Question Response Menses Monthly N Flow Moderate Date of LMP 06/29/2023 LMP Definite Obstetrics History GPAL:G 0 P 0 0 0 0 Past Encounters Encounter ID Performer Location Encounter Start Date Encounter Closed Date Diagnosis/Indication Diagnosis SNOMED-CT Code Diagnosis ICD10 Code Diagnosis Note [id number] MONROE Loera [facility] [address] [address] 08/13/2023 17:06:22 08/13/2023 18:06:11 Body mass index 40+ - severely obese 400497649 Z68.43 BMI is 51.2. start Wegovy injectable therapy. no personal or family hx of Medullary thyroid cancer or MEN conditions . Bone spur of right hip 3306543512 47271 M25.751 Patient is following with a specialist for a bone spur of her right hip Obesity 758968298 E66.8 discussed healthy diet, exercise, controllin g carbohydra angela and added sugars in the diet Prediabetes 463482567 R7 3.03 Continue metformin 500 mg daily and continue lower carbohydra te lower sugar diet. Insulin resistance 13999 5000 E88.819 Patient is taking metformin 500 mg daily, if she is able to get Wegovy therapy this will be 1 of the most important ways to manage and treat her insulin resistance Major depr essive disorder 623196050 F32.9 Continue sertraline 150 mg daily and Wellbutrin SR 150 mg daily that is given by her gynecologi st Hyperlipidemia 53358379 E78.5 Continue rosuvastat in 10 mg daily. Patient has lab orders to complete Gastroesop hageal reflux disease without esophagitis 809375818 K21.9 Continue omeprazole 40 mg daily Allergic rhinitis 044713 04 J30.9 Patient may take over-the-c ounter antihistam ine and Singulair 10 mg daily Obstructiv e sleep apnea syndrome 35939681 G47.33 Patient does have known sleep apnea and is in need of a titration study at this time. She has previously done a study that confirmed sleep apnea. pt is using her CPAP & is benefiting from the usage though her machine is in need of replacemen t in the previous DME location is out of business. We will need to get an updated titration study for proper settings with a new machine. Long-term drug therapy 672645158 Z79.899 Routine labs are still up-to-date and we will acquire records from old office Neck swelling 175388472 R22.1 Generalize d neck fullness and swelling bilaterall y as noted on exam today. Refer patient for soft tissue CT scan of the neck with contrast Health Concerns Section Related Observation LastModified by Organization Detai ls LastModified Time None Recorded Concern Status LastModified by Organization Details LastModified Time None Recorded Advance Directives Directive N: Payers Encounter Date Sequence Insurance Name Policy Number Policy Conklin Covered Member ID Conklin Member ID Guarantor Name 08/13/2023 1 [place] [id number] Linda Anita [id number] Linda Anita 08/13/2023 2 [facility] AET (PPO) [id number] [place] Anita [id number] Linda Anita Notes Date Note Type Note Provider Name and Address Organization Details Recorded Time 024 text/ht ml Anxiety/DepressionReported bypatient.Notes:Patient is on sertraline 150 mg daily and Wellbutrin SR 150 mg twice daily for anxiety and depressionHyperlipidemiaReported bypatient.Notes:Patient is taking rosuvastatin 10 mg daily and is not due for labs at this timeObstructive Sleep Apnea F/UReported bypatient.Onset/Timing:chronic Duration:long standing Alleviating factors:relief with CPAP; pt is using her CPAP & is benefiting from the usage but she is in need of a new machine because this 1 is dated and her previous DME company is out of business. Associated Symptoms:excessive sleepiness during the day Prior Tests:home sleep study; PSG Prior TreatmentCPAP Prior opinionPCPNotes:pt is using her CPAP & is benefiting from the usage Prediabetes/insulin resistant history-patient has been on metformin therapy for management MONROE Loera Attn: Accounting, [address] [facility], [place], [address], [facility] 01/21/2024 13:40:09 OBGyn Episode No OBEpisode recorded.
--- OUTSIDE RECORDS SUMMARY | 2024-04-08 14:45 | XMS_ITS | Clinical Summary ---
Author Organization [facility] Address [facility] [place] [address] Care Team Providers Care Graduate Assistant Name Role Phone Caseyjosé miguel Suni MONROE Primary Care Provider [phone] Allergies Active Allergy Reactions Criticality Noted Date Comments Amoxicillin-Pot Clavulanate Nausea and Vomiting,Vomiting 04/04/2017 Doxycycline Hives Medium 10/29/2015 Sulfa Antibiotics Vomiting 11/28/2020 Medications sertraline 100 MG tablet Take 1.5 tablets (150 mg total) by mouth nightly. 1 Active rosuvastatin 10 MG tablet Take 1 tablet (10 mg total) by mouth every evening. 1 Active vitamin D2, ergocalciferol, (DRISDOL) 05419 UNITS capsule Take 1 capsule (1.25 mg total) by mouth every 7 days. Takes on Sunday evenings Active metFORMIN 500 MG tablet Take 1 tablet (500 mg total) by mouth daily with supper. Active montelukast 10 MG tablet Take 1 tablet (10 mg total) by mouth nightly at bedtime. Active colestipol 1 g tablet Take 2 tablets (2 g total) by mouth nightly. (Is holding this while on oxycodone as it is constipating. Active omeprazole (PRILOSEC) 40 MG capsule Take 1 capsule (40 mg total) by mouth nightly. 3 Active Active Problems Problem Noted Date Diagnosed Date Acute appendicitis 09/03/2022 Nephrolithiasis 07/25/2022 Kidney stone 07/24/2022 Cervical radiculopathy 12/22/2020 Immunizations Name Administration Dates Next Due MODERNA COVID-19 (12+) MRNA, LNP-S, PF, 100 MCG/ 0.5 ML DOSE 04/15/2020,03/18/2020 Family History Medical History Relation Comments Arthritis Father Cancer Father prostate No Known Problems Mother Cancer Sister stage 4 squamous Multiple Sclerosis Sister Relation Status Comments Father Alive Mother Alive Sister Alive Social History Tobacco Use Types Packs/Day Years Used Date Smoking Tobacco: Former Cigarettes 0.5 15 0 03/1999 - 03/2014 Smokeless Tobacco: Never Comments:1/2 to 1 ppd Alcohol Use Standard Drinks/Week Comments Yes 0 (1 standard drink = 0.6 oz pur e alcohol) socially, maybe once a month Humiliation, Afraid, Rape, and Kick questionnair e Answer Date Recorded Within the last year, have y ou been afraid of your partner or ex-partner? No 09/03/2022 Within the last year, have y ou been humiliated or emotionally abused in other ways by your partner or ex-partner? No Within the last year, have y ou been kicked, hit, slapped, or otherwise physically hurt by your partner or ex-partner? No 09/03/2022 Within the last year, have y ou been raped or forced to have any kind of sexual activity by your partner or ex-partner? No 09/03/2022 Social Connection and Isolat ion Panel [NHANES] Answer Date Recorded In a typical week, how many times do you talk on the phone with family, friends, or neighbors? More than three times a week 09/03/2022 How often do you get togethe r with friends or relatives? Three times a week 09/03/2022 How often do you attend chur ch or nondenominational services? Never 09/03/2022 Do you belong to any clubs o r organizations such as islam groups, unions, fraternal or athletic groups, or school groups? No 09/03/2022 How often do you attend meet ings of the clubs or organizations you belong to? Never 09/03/2022 Are you , , di vorced, , never , or living with a partner? 09/03/2022 AUDIT-C Answer Date Recorded Q1: How often do you have a drink containing alc ohol? Monthly or less 09/03/2022 Q2: How many drinks containi ng alcohol do you have on a typical day when you are drinking? 1 or 2 09/03/2022 Q3: How often do you have si x or more drinks on one occasion? Never 09/03/2022 Overall Financial Resource Strain (CARDIA) Answe r Date Recorded How hard is it for you to pa y for the very basics like food, housing, medical care, and heating? Not hard at all 09/03/2022 [facility] - Occupational Stress Questionnaire Answer Date Recorded Do you feel stress - tense, restless, nervous, or anxious, or unable to sleep at night because your mind is troubled all the time - these days? To some extent 09/03/2022 Exercise Vital Sign Answer Date Recorde d On average, how many days pe r week do you engage in moderate to strenuous exercise (like a brisk walk)? 0 days 09/03/2022 On average, how many minutes do you engage in exercise at this level? 0 min 09/03/2022 Hunger Vital Sign Answer Date Recorded Within the past 12 months, y ou worried that your food would run out before you got the money to buy more. Never true 09/04/19 23 Within the past 12 months, t he food you bought just didn't last and you didn't have money to get more. Never true 09/03/2022 PRAPARE - Transportation Answer Date Re corded In the past 12 months, has l ack of transportation kept you from medical appointments or from getting medications? No 08/07 In the past 12 months, has l ack of transportation kept you from meetings, work, or from getting things needed for daily living? No 09/03/2022 Housing Stability Vital Sign Answer Marshall e Recorded In the last 12 months, was t here a time when you were not able to pay the mortgage or rent on time? Yes 09/03/2022 In the last 12 months, how many places have you lived? 1 09/03/2022 In the last 12 months, was t here a time when you did not have a steady place to sleep or slept in a jail (including now)? No 09/03/2022 Education Answer Date Recorded What is the highest level of school you have completed or the highest degree you have received? 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 [employer] Not on file Not on file Not on file Last Filed Vital Signs Vital Sign Reading Time Taken Comments Blood Pressure 133/76 06/08/2023 10:35 AM CDT Pulse 74 06/08/2023 10:35 AM CDT Temperature 37.1 C (98.7 F) 06/08/2023 10:35 AM CDT Respiratory Rate 18 06/08/2023 10:35 AM CDT Oxygen Saturation 98% 06/08/2023 10:35 AM CDT Inhaled Oxygen Concentration - - Weight 137.9 kg (304 lb) 06/08/2023 10:18 AM CDT Height 170.2 cm (5' 7 ) 06/08/2023 10:18 AM CDT Body Mass Index 47.61 06/08/2023 10:18 AM CDT Plan of Treatment Health Maintenance Due Date Last Done Comments Cervical Cancer Screening Pa p Smear (Age 30 to 64) Every 3 Years 1979 Annual Physical 09/09/1982 Hepatitis C 09/09/1997 DTaP, Tdap and Td Vaccines ( 1 - Tdap) 09/09/1998 Hepatitis B Vaccines (1 of 3 - 19+ 3-dose series) 09/09/1998 Cervical Cancer Screening Pa p with HPV Testing (Age 30 to 64) Every 5 Years 09/09/2009 Cervical Cancer Screening wi th HPV 09/09/2009 HPV Vaccines (2 - 3-dose SCD M series) 06/08/2020 05/11/2020 COVID-19 Vaccine ( - 2023-2 5 season) 2023 04/15/2020, 03/18/2020 Influenza Adult (#1) 2023 02/05/2015 Mammogram Screening 08/03/2025 08/04/2023, 05/21/2021 Meningococcal B Vaccine Aged Out No l onger eligible based on patient's age to complete this topic Meningococcal Vaccine Aged Out No angella tristan eligible based on patient's age to complete this topic Pneumococcal Vaccine: Pediatrics (0 to 5 Years) and At-Risk Patients (6 to 64 Years) Aged Out No longer eligible b ased on patient's age to complete this topic RSV Immunizations Under 20 Months Aged Out No longer eligible b ased on patient's age to complete this topic Goals Goal Patient Goal Type Associated Problems Recent Progress Patient-Stated? Author Patient will return to prior living situation and remain independent in ADLs upon discharge from hospital Lifestyle No Lani Whittaker, INFANTRY UNIT LEADER Medical Devices Implanted Type Area Substance Abuse Nurse Device Identifier Shelf Expiration Date Model / Serial / Lot Stent Ureteral 6fr 28cm Pigtl Crv Taper Tip Bldr Mrk - [id number] Implanted:Qty : 1 on 09/03/2022 by Bryan Sandoval MD at [facility] Stent Right: Ureter [employer] [id number] 04/06/2025 [id number] 40 / / [id number] Stent Ureteral 6fr 26cm Pigtl Crv Taper Tip Bldr Mrk - [id number] Implanted:Qty : 1 on 09/08/2022 by Andi Espinoza MD at [facility] Stent Right: Ureter [employer] [id number] 04/23/2025 [id number] 30 / / [id number] Procedures Procedure Name Priority Date/Time Associated Diagnosis Comments MG SCREENING W DAGO LESLIE DIGI Routine 08/04/2023 3:07 PM CDT Screening breast examination from Last 3 Months or Most Recently Relevant to Health Maintenance Results * MG SCREENING W DAGO LESLIE DIGI (08/04/2023 3:07 PM CDT) Anatomical Region Laterality Modality Breast Bilateral Mammography 08/06/2023 12:0 6 PM CDT Impressions 08/06/2023 12:15 PM CDT IMPRESSION: No significant interval change. No mammographic evidence of malignancy. RECOMMENDATION: Routine ScreeningBilateral OVERALL IMAGING ASSESSMENT: ACR BI-RADS 1 - NEGATIVE. Ordered By: MIRTHA VARGAS Interpreted By: Apolinar Walker, 08/06/2023 12:06 PM Narrative 08/06/2023 12:15 PM CDT EXAMINATION: MG SCREENING W DAGO HOLMAN INDICATIONS: Screening TECHNIQUE: Digital full field CC and MLO screening mammography bilaterally to include 3-D Tomosynthesis technique. This study was read with the assistance of a computer-aided detection system. HISTORY: No reported breast complaint. No documented personal or first degree family history of breast cancer. No documented prior breast procedure. COMPARISON: 05/21/2021 and 12/17/2015. TISSUE DENSITY: There are scattered areas of fibroglandular density. FINDINGS: No suspicious microcalcification or mass. No developing asymmetry or architectural distortion. No axillary adenopathy. us Mirtha Vargas MD MAMMO Final Res ult from Last 3 Months or Most Recently Relevant to Health Maintenance Insurance [facility] Advance Directives * Full Code (Latest Code Status on File) Date Activated Date Inactivated Comments 09/03/2022 10:09 AM 09/04/2022 3:33 PM * Full Code Date Activated Date Inactivated Comments 07/25/2022 12:02 AM 07/25/2022 9:18 PM Care Teams Graduate Assistant Relationship Specialty Start Date End Date Suni Quiroga PA [address] [place] [address] PCP - General PHYSICIAN CRM MARKETING ANALYST 12/20/18
--- OUTSIDE RECORDS SUMMARY | 2024-04-08 14:45 | XMS_ITS | Clinical Summary ---
Author Organization [facility] Address [address] [place] [address] Care Team Providers Care Bark Press Operator Name Role Phone Unavailable Primary Care Provider Unavailabl e Allergies Active Allergy Reactions Criticality Noted Date Comments Amoxicillin Vomiting Low 07/14/2022 Doxycycline Hives,Urticaria Medium 10/29/2015 Sulfa (Sulfonamide Antibiotics) Vomiting Low 11/06 Medications sertraline (ZOLOFT) 100 mg tablet TAKE 1.5 TABLETS BY MOUTH DAILY 07/08/2022 Active rosuvastatin (CRESTOR) 10 mg tablet Take 1 tablet (10 mg total) by mouth every evening 06/24/2022 Active omeprazole (PriLOSEC) 40 mg capsule 06/24/2022 Active montelukast (SINGULAIR) 10 mg tablet Take 1 tablet (10 mg total) by mouth daily as needed 07/08/2022 Active metFORMIN (GLUCOPHAGE) 500 mg tablet TAKE 1 TABLET BY MOUTH TWICE DAILY WITH MEAL 06/24/2022 Active PreviDent 5000 Booster Plus 1.1 % paste as directed 07/08/2022 Activ e ergocalciferol (VITAMIN D) 50,000 unit capsule TAKE 1 CAPSULE BY MOUTH 1 TIME EVERY WEEK 06/24/2022 Active colestipoL (COLESTID) 1 gram tablet 06/27/2022 Active Social History Tobacco Use Types Packs/Day Years Used Date Smoking Tobacco: Never Assessed Personal Safety Answer Date Recorded Getting School Help Needed Not on file 04/21 Comments Unknown Sex and Gender Information Value Date Recorded Sex Assigned at Not on file Legal Sex Female 1:05 PM CDT Gender Identity Not on file Sexual Orientation Not on file Plan of Treatment Health Maintenance Due Date Last Done Comments Breast Cancer Screening-Mammogram 1979 Cervical Cancer Screening 1979 Depression Screening 1979 Hepatitis C Screening 1979 DTaP/Tdap/Td Vaccine (1 - Tdap) 09/09/1990 Varicella Vaccines (1 of 2 - 13+ 2-dose series) 09/09/1992 Hepatitis B Screening 09/09/1997 Regular Well Visit/Exam 18-64 09/09/1997 Covid-19 Vaccine (2023-2 5 season) 2023 06/13/2021, 04/15/2020, 03/18/2020 Influenza Vaccine (#1) 2023 HPV Vaccines Aged Out No longer eligi ble based on patient's age to complete this topic Pneumococcal vaccine <65 Aged Out No longer eligible based on patient's age to complete this topic
--- OUTSIDE RECORDS SUMMARY | 2024-04-08 14:45 | XMS_ITS | Referral Summary ---
Author Organization [facility] Address [address] [place] [address] Care Team Providers Care Human Services Program Specialist Name Role Phone Unavailable Primary Care Provider [...] Orientation Not on file Plan of Treatment Not on file
--- OUTSIDE RECORDS SUMMARY | 2024-04-08 14:46 | XMS_ITS | Data Portability ---
Author Organization [facility], Main Office [place] [address] [place] [address] Assessment No assessment recorded. Plan of Treatment Reminders Order Date Submit Date Provider Last Modified By Organization Details Last Modified Time Details Appointments None recorded. Lab HbA1c (hemoglobin A1c), blood 2022 023 ARASELI Not available 3 12:31:21 TSH + free T4, serum 2022 023 [email or web address] Not available 3 16:25:50 CBC w/ auto diff 2022 023 ARASELI Not available 3 12:31:23 CMP, serum or plasma 2022 023 ARASELI Not available 3 12:31:20 lipid panel, serum 2022 023 ARASELI Not available 3 12:31:18 vitamin D, 25-hydroxy, total, serum 2022 023 ARASELI Not available 3 12:31:22 Referral None recorded. Procedures None recorded. Surgeries None recorded. Imaging None recorded. Medication Orders fluconazole 150 mg tablet 2022 023 [id number], [address], [place], [id number], 3 16:05:20 Patient TargetsNo targets recorded. Patient InstructionsNo instructions recorded. Reason for Referral None Reported. Results Created Date Observation Date Name Description Value Unit Range Abnormal Flag Note LastModifiedBy Organization Detail LastModifiedTime 10/23/19 21 10/25/2020 CULTU RE, URINE , ROUTI NE culture, urine, routine CULTU RE, URINE , ROUTI NE Micro Numbe r: [id number] Test Statu s: Final Speci men Sourc e: Urine Speci men Quali ty: Adequ ate Resul t: Growt h of mixed case was isola traci, sugge sting proba ble conta minat ion. No furth er testi ng will be perfo rmed. If clini penelope indic ated, recol lecti on using a metho d to minim ize conta minat ion, with promp t trans comfort to Urine Cultu re Trans port Tube, is recom summer d. Not Available [facility] [address] [place] [address] [place], [address], 10/25/2020 14:56:52 10/23/19 21 10/25/2020 INSUL IN insulin 25.4 uIU/m L high Refer ence Range < or = 19.6 Risk: Optim al < or = 19.6 Moder ate NA High >19.6 Adult cardi ovasc ular event risk categ ory cut point s (opti mal, moder ate, high) are based on [facility] popul ation data from 01/24 11. This insul in assay shows stron g cross -reac tivit y for some insul in analo gs (lisp ro, aspar t, and glarg ine) and much lower cross -reac tivit y with other s (dete veronica, gluli sine) . Not Available [facility] [address] [address] [place], [address], 10/25/2020 14:56:52 10/23/19 21 10/25/2020 REFLE XIVE URINE CULTU RE reflexive urine culture CULTU RE INDIC ATED - RESUL TS TO FOLLO W Not Available [facility] [address] [address] [place], [address], 10/25/2020 14:56:51 10/23/19 21 10/25/2020 URINA LYSIS , COMPL ETE W/REF ALCIRA TO CULTU RE color yellow yellow normal Not Available [facility] [place] [address] [address], [place], [address], 10/25/2020 14:56:50 10/23/19 21 10/25/2020 URINA LYSIS , COMPL ETE W/REF ALCIRA TO CULTU RE appearance clear clear normal Not Available [address], [address], 10/25/2020 14:56:50 10/23/19 21 10/25/2020 URINA LYSIS , COMPL ETE W/REF ALCIRA TO CULTU RE specific gravity 1.028 1.001- 1.035 normal Not Available [address], [address], 10/25/2020 14:56:50 10/23/19 21 10/25/2020 URINA LYSIS , COMPL ETE W/REF ALCIRA TO CULTU RE pH 5.5 5.0-8. 0 normal Not Available [address], [address], 10/25/2020 14:56:50 10/23/19 21 10/25/2020 URINA LYSIS , COMPL ETE W/REF ALCIRA TO CULTU RE glucose negati ve negati ve normal Not Available [address], [address], 10/25/2020 14:56:50 10/23/19 21 10/25/2020 URINA LYSIS , COMPL ETE W/REF ALCIRA TO CULTU RE bilirubin negati ve negati ve normal Not Available [address], [address], 10/25/2020 14:56:50 10/23/19 21 10/25/2020 URINA LYSIS , COMPL ETE W/REF ALCIRA TO CULTU RE ketones negati ve negati ve normal Not Available [address], [address], 10/25/2020 14:56:50 10/23/19 21 10/25/2020 URINA LYSIS , COMPL ETE W/REF ALCIRA TO CULTU RE occult blood 3+ negati ve abnormal Not Available [address], [address], 10/25/2020 14:56:50 10/23/19 21 10/25/2020 URINA LYSIS , COMPL ETE W/REF ALCIRA TO CULTU RE protein 1+ negati ve abnormal Not Available [address], [address], 10/25/2020 14:56:50 10/23/19 21 10/25/2020 URINA LYSIS , COMPL ETE W/REF ALCIRA TO CULTU RE nitrite negati ve negati ve normal Not Available [address], [address], 10/25/2020 14:56:50 10/23/19 21 10/25/2020 URINA LYSIS , COMPL ETE W/REF ALCIRA TO CULTU RE leukocyte esterase 1+ negati ve abnormal Not Available [address], [address], 10/25/2020 14:56:50 10/23/19 21 10/25/2020 URINA LYSIS , COMPL ETE W/REF ALCIRA TO CULTU RE WBC 10-20 /hpf < or = 5 abnormal Not Available [address], [address], 10/25/2020 14:56:50 10/23/19 21 10/25/2020 URINA LYSIS , COMPL ETE W/REF ALCIRA TO CULTU RE RBC 10-20 /hpf < or = 2 abnormal Not Available [address], [address], 10/25/2020 14:56:50 10/23/19 21 10/25/2020 URINA LYSIS , COMPL ETE W/REF ALCIRA TO CULTU RE squamous epithelial cells 0-5 /hpf < or = 5 Not Available [address], [address], 10/25/2020 14:56:50 10/23/19 21 10/25/2020 URINA LYSIS , COMPL ETE W/REF ALCIRA TO CULTU RE bacteria none seen /hpf none seen normal Not Available [address], [address], 10/25/2020 14:56:50 10/23/19 21 10/25/2020 URINA LYSIS , COMPL ETE W/REF ALCIRA TO CULTU RE hyaline cast none seen /lpf none seen normal Not Available [address], [address], 10/25/2020 14:56:50 10/23/19 21 10/25/2020 CBC (INCL UDES DIFF/ PLT) white blood cell count 9.8 thous and/u L 3.8-10 .8 normal Not Available [address], [address], 10/25/2020 14:56:49 10/23/19 21 10/25/2020 CBC (INCL UDES DIFF/ PLT) red blood cell count 4.88 melisa on/uL 3.80-5 .10 normal Not Available [address], [address], 10/25/2020 14:56:49 10/23/19 21 10/25/2020 CBC (INCL UDES DIFF/ PLT) hemoglobin 12.8 g/dL 11.7-1 5.5 normal Not Available [address], [address], 10/25/2020 14:56:49 10/23/19 21 10/25/2020 CBC (INCL UDES DIFF/ PLT) hematocrit 40.7 % 35.0-4 5.0 normal Not Available [address], [address], 10/25/2020 14:56:49 10/23/19 21 10/25/2020 CBC (INCL UDES DIFF/ PLT) MCV 83.4 fL 80.0-1 00.0 normal Not Available [address], [address], 10/25/2020 14:56:49 10/23/19 21 10/25/2020 CBC (INCL UDES DIFF/ PLT) MCH 26.2 pg 27.0-3 3.0 low Not Available [facility] [address], [address], 10/25/2020 14:56:49 10/23/19 21 10/25/2020 CBC (INCL UDES DIFF/ PLT) MCHC 31.4 g/dL 32.0-3 6.0 low Not Available [address], [address], 10/25/2020 14:56:49 10/23/19 21 10/25/2020 CBC (INCL UDES DIFF/ PLT) RDW 13.7 % 11.0-1 5.0 normal Not Available [address], [address], 10/25/2020 14:56:49 10/23/19 21 10/25/2020 CBC (INCL UDES DIFF/ PLT) platelet count 295 thous and/u L 140-40 0 normal Not Available [address], [address], 10/25/2020 14:56:49 10/23/19 21 10/25/2020 CBC (INCL UDES DIFF/ PLT) MPV 11.1 fL 7.5-12 .5 normal Not Available [address], [address], 10/25/2020 14:56:49 10/23/19 21 10/25/2020 CBC (INCL UDES DIFF/ PLT) absolute neutrophils 6615 cells /uL 1500-7 800 normal Not Available [address], [address], 10/25/2020 14:56:49 10/23/19 21 10/25/2020 CBC (INCL UDES DIFF/ PLT) absolute lymphocytes 2479 cells /uL 850-39 00 normal Not Available [address], [address], 10/25/2020 14:56:49 10/23/19 21 10/25/2020 CBC (INCL UDES DIFF/ PLT) absolute monocytes 490 cells /uL 200-95 0 normal Not Available [address], [address], 10/25/2020 14:56:49 10/23/19 21 10/25/2020 CBC (INCL UDES DIFF/ PLT) absolute eosinophils 186 cells /uL 15-500 normal Not Available [address], [address], 10/25/2020 14:56:49 10/23/19 21 10/25/2020 CBC (INCL UDES DIFF/ PLT) absolute basophils 29 cells /uL 0-200 normal Not Available [address], [address], 10/25/2020 14:56:49 10/23/19 21 10/25/2020 CBC (INCL UDES DIFF/ PLT) neutrophils 67.5 % normal Not Available [address], [address], 10/25/2020 14:56:49 10/23/19 21 10/25/2020 CBC (INCL UDES DIFF/ PLT) lymphocytes 25.3 % normal Not Available [address], [address], 10/25/2020 14:56:49 10/23/19 21 10/25/2020 CBC (INCL UDES DIFF/ PLT) monocytes 5.0 % normal Not Available [address], [address], 10/25/2020 14:56:49 10/23/19 21 10/25/2020 CBC (INCL UDES DIFF/ PLT) eosinophils 1.9 % normal Not Available [address], [address], 10/25/2020 14:56:49 10/23/19 21 10/25/2020 CBC (INCL UDES DIFF/ PLT) basophils 0.3 % normal Not Available [address], [address], 10/25/2020 14:56:49 10/23/19 21 10/25/2020 T4, FREE T4, free 1.0 NG/dL 0.8-1. 8 normal Not Available [address], [address], 10/25/2020 14:56:48 10/23/19 21 10/25/2020 TSH TSH 1.91 mIU/L normal Refer ence Range > or = 20 Years 0.40- 4.50 Pregn naresh Range s First trime ster 0.26- 2.66 Secon d trime ster 0.55- 2.73 Third trime ster 0.43- 2.91 Not Available [address], [address], 10/25/2020 14:56:47 10/23/19 21 10/25/2020 LIPAS E lipase 12 U/L 7-60 normal Not Available [address], [address], 10/25/2020 14:56:46 10/23/19 21 10/25/2020 AMYLA SE amylase 25 U/L 21-101 normal Not Available [facility] [place] [address] [place], [address], 10/25/2020 14:56:46 10/23/19 21 10/25/2020 VITAM IN D,25- OH,TO VALERIY,I A vitamin D,25-oh,tota l,ia 43 NG/mL 30-100 normal Vitam in D Statu s 25-OH Vitam in D: Defic iency : <20 ng/mL Insuf ficie ncy: 20 - 29 ng/mL Optim al: > or = 30 ng/mL For 25-OH Vitam in D testi ng on patie nts on D2-melendrez pplem entat ion and patie nts for whom quant itati on of D2 and D3 fract ions is requi red, the [facility] e[facility](TM ) 25-OH VIT D, (D2,D 3), LC/MS /MS is recom summer d: order code 34406 (freddy ents >2yrs ). See Note 1 Note 1 For addit ional infor mariam jaime e refer to http: //grecia Soto stDia gnost ics.c om/fa q/FAQ 199 (This link is being provi ded for infor jose l olivier/ valentin roper purpo ses only. ) Not Available [facility] [address] [address] [place], [address], 10/25/2020 14:56:45 10/23/19 21 10/25/2020 HEMOG LOBIN A1C hemoglobin A1C 5.9 %_of_ total _HGB <5.7 high Not Available [facility] [address] [place], [address], 10/25/2020 14:56:44 10/23/19 21 10/25/2020 COMPR EHENS RAFAT METAB OLIC PANEL glucose 102 mg/dL 65-99 high Fasti ng refer ence inter eagle For someo ne witho ut known diabe angela, a gluco se value betwe en 100 and 125 mg/dL is consi stent with predi abete s and shoul d be confi rmed with a follo w-up test. Not Available [address], [address], 10/25/2020 14:56:43 10/23/19 21 10/25/2020 COMPR EHENS RAFAT METAB OLIC PANEL urea nitrogen (BUN) 11 mg/dL 7-25 normal Not Available [address], [address], 10/25/2020 14:56:43 10/23/19 21 10/25/2020 COMPR EHENS RAFAT METAB OLIC PANEL creatinine 0.73 mg/dL 0.50-1 .10 normal Not Available [address], [address], 10/25/2020 14:56:43 10/23/19 21 10/25/2020 COMPR EHENS RAFAT METAB OLIC PANEL eGFR non-afr. uzbek 102 mL/mi n/1.7 3m2 > or = 60 normal Not Available [address], [address], 10/25/2020 14:56:43 10/23/19 21 10/25/2020 COMPR EHENS RAFAT METAB OLIC PANEL eGFR 119 mL/mi n/1.7 3m2 > or = 60 normal Not Available [address], [address], 10/25/2020 14:56:43 10/23/19 21 10/25/2020 COMPR EHENS RAFAT METAB OLIC PANEL BUN/creatini ne ratio not applic able (calc ) 6-22 Not Available [address], [address], 10/25/2020 14:56:43 10/23/19 21 10/25/2020 COMPR EHENS RAFAT METAB OLIC PANEL sodium 136 mmol/ L 135-14 6 normal Not Available [address], [address], 10/25/2020 14:56:43 10/23/19 21 10/25/2020 COMPR EHENS RAFAT METAB OLIC PANEL potassium 4.1 mmol/ L 3.5-5. 3 normal Not Available [address], [address], 10/25/2020 14:56:43 10/23/19 21 10/25/2020 COMPR EHENS RAFAT METAB OLIC PANEL chloride 102 mmol/ L 98-110 normal Not Available [address], [address], 10/25/2020 14:56:43 10/23/19 21 10/25/2020 COMPR EHENS RAFAT METAB OLIC PANEL carbon dioxide 23 mmol/ L 20-32 normal Not Available [address], [address], 10/25/2020 14:56:43 10/23/19 21 10/25/2020 COMPR EHENS RAFAT METAB OLIC PANEL calcium 8.9 mg/dL 8.6-10 .2 normal Not Available [address], [address], 10/25/2020 14:56:43 10/23/19 21 10/25/2020 COMPR EHENS RAFAT METAB OLIC PANEL protein, total 7.0 g/dL 6.1-8. 1 normal Not Available [address], [address], 10/25/2020 14:56:43 10/23/19 21 10/25/2020 COMPR EHENS RAFAT METAB OLIC PANEL albumin 3.9 g/dL 3.6-5. 1 normal Not Available [address], [address], 10/25/2020 14:56:43 10/23/19 21 10/25/2020 COMPR EHENS RAFAT METAB OLIC PANEL globulin 3.1 g/dL_ (calc ) 1.9-3. 7 normal Not Available [address], [address], 10/25/2020 14:56:43 10/23/19 21 10/25/2020 COMPR EHENS RAFAT METAB OLIC PANEL albumin/glob ulin ratio 1.3 (calc ) 1.0-2. 5 normal Not Available [address], [address], 10/25/2020 14:56:43 10/23/19 21 10/25/2020 COMPR EHENS RAFAT METAB OLIC PANEL bilirubin, total 0.3 mg/dL 0.2-1. 2 normal Not Available [address], [address], 10/25/2020 14:56:43 10/23/19 21 10/25/2020 COMPR EHENS RAFAT METAB OLIC PANEL alkaline phosphatase 101 U/L 31-125 normal Not Available [address], [address], 10/25/2020 14:56:43 10/23/19 21 10/25/2020 COMPR EHENS RAFAT METAB OLIC PANEL AST 23 U/L 10-30 normal Not Available [address], [address], 10/25/2020 14:56:43 10/23/19 21 10/25/2020 COMPR EHENS RAFAT METAB OLIC PANEL ALT 27 U/L 6-29 normal Not Available [address], [address], 10/25/2020 14:56:43 10/23/19 21 10/25/2020 LIPID PANEL , STAND CHICA cholesterol, total 229 mg/dL <200 high Not Available [address], [address], 10/25/2020 14:56:42 10/23/19 21 10/25/2020 LIPID PANEL , STAND CHICA HDL cholesterol 37 mg/dL > or = 50 low Not Available [facility] [address] [place], [address], 10/25/2020 14:56:42 10/23/19 21 10/25/2020 LIPID PANEL , STAND CHICA triglyceride s 206 mg/dL <150 high If a non-f astin g speci men was colle cted, consi eric repea t trigl yceri de testi ng on a fasti ng speci men if clini penelope indic ated. Norberto mendiola et al. J. of Clin. Lipid ol. 2015; 9:129 -169. Not Available [facility] [address] [address] [place], [address], 10/25/2020 14:56:42 10/23/19 21 10/25/2020 LIPID PANEL , STAND CHICA LDL-choleste rol 155 mg/dL _(matthew c) high Refer ence range : <100 Kimberly able range <100 mg/dL for prima ry preve ntion ; <70 mg/dL for patie nts with CHD or diabe tic patie nts with > or = 2 CHD risk facto rs. LDL-C is now calcu lated using the Caron n-Hop kins calcu latjase n, which is a valid ated novel caspero d scott painter r accur acy than the Fried patricia equat ion in the estim ation of LDL-C . Caron fisher SS et al. GIGI. 2013; 310(1 9): 2061- 2068 (http ://ed ucati on.Qu estDi Stooties. com/f aq/FA Q164) Not Available [facility] [address] [place], [address], 10/25/2020 14:56:42 10/23/19 21 10/25/2020 LIPID PANEL , STAND CHICA chol/HDLC ratio 6.2 (calc ) <5.0 high Not Available [address] [address] [place], [address], 10/25/2020 14:56:42 10/23/19 21 10/25/2020 LIPID PANEL , STAND CHICA non HDL cholesterol 192 mg/dL _(matthew c) <130 high For patie nts with diabe angela plus 1 major ASCVD risk facto r, treat ing to a non-H DL-C goal of <100 mg/dL (LDL- C of <70 mg/dL ) is consi dered a thera peuti c optio n. Not Available [facility] [address] [address] [place], [address], 10/25/2020 14:56:42 09/03/19 23 09/03/2022 LIPID PANEL , STAND CHICA cholesterol, total 196 mg/dL <200 normal Not Available [address] [address] [place], [address], 09/03/2022 12:31:18 09/03/19 23 09/03/2022 LIPID PANEL , STAND CHICA HDL cholesterol 44 mg/dL > or = 50 low Not Available [address] [place], [address], 09/03/2022 12:31:18 09/03/19 23 09/03/2022 LIPID PANEL , STAND CHICA triglyceride s 219 mg/dL <150 high If a non-f astin g speci men was colle cted, consi eric repea t trigl yceri de testi ng on a fasti ng speci men if clini penelope indic ated. Norberto mendiola et al. J. of Clin. Lipid ol. 2015; 9:129 -169. Not Available [address] [place], [address], 09/03/2022 12:31:18 09/03/19 23 09/03/2022 LIPID PANEL , STAND CHICA LDL-choleste rol 118 mg/dL _(matthew c) high Refer ence range : <100 Kimberly able range <100 mg/dL for prima ry preve ntion ; <70 mg/dL for patie nts with CHD or diabe tic patie nts with > or = 2 CHD risk facto rs. LDL-C is now calcu lated using the Caron n-Hop kins calcu sagejase n, which is a valid ated novel metho d provi ding inocencio r accur acy than the Fried patricia equat ion in the estim ation of LDL-C . Caron fisher SS et al. GIGI. 2013; 310(1 9): 2061- 206 (http ://ed ucati on.Qu estDi [employer]. com/f aq/FA Q164) Not Available [facility] [address] [address] [place], [address], 09/03/2022 12:31:18 09/03/19 23 09/03/2022 LIPID PANEL , STAND CHICA chol/HDLC ratio 4.5 (calc ) <5.0 normal Not Available [address] [address] [place], [address], 09/03/2022 12:31:18 09/03/19 23 09/03/2022 LIPID PANEL , STAND CHICA non HDL cholesterol 152 mg/dL _(matthew c) <130 high For patie nts with diabe angela plus 1 major ASCVD risk facto r, treat ing to a non-H DL-C goal of <100 mg/dL (LDL- C of <70 mg/dL ) is consi ed a siobhan hall optio n. Not Available [address] [address] [address] , [place], [address], 09/03/2022 12:31:18 09/03/19 23 09/03/2022 COMPR EHENS RAFAT METAB OLIC PANEL glucose 97 mg/dL 65-99 normal Fasti ng refer ence inter eagle Not Available [facility] [address] [address] [place], [address], 09/03/2022 12:31:20 09/03/19 23 09/03/2022 COMPR EHENS RAFAT METAB OLIC PANEL urea nitrogen (BUN) 12 mg/dL 7-25 normal Not Available [address], [address], 09/03/2022 12:31:20 09/03/19 23 09/03/2022 COMPR EHENS RAFAT METAB OLIC PANEL creatinine 0.77 mg/dL 0.50-0 .99 normal Not Available [facility] [address], [address], 09/03/2022 12:31:20 09/03/19 23 09/03/2022 COMPR EHENS RAFAT METAB OLIC PANEL eGFR 99 mL/mi n/1.7 3m2 > or = 60 normal The eGFR is based on the CKD-E PI 2020 equat ion. To calcu late the new eGFR from a previ ous Creat inine or Cysta tin C resul t, go to https ://anthony reed/yoanna le s/ kdoqi /gfr% 5Fcal culat or Not Available [address], [address], 09/03/2022 12:31:20 09/03/19 23 09/03/2022 COMPR EHENS RAFAT METAB OLIC PANEL BUN/creatini ne ratio NOT APPLIC ABLE (calc ) 6-22 Not Available [address], [address], 09/03/2022 12:31:20 09/03/19 23 09/03/2022 COMPR EHENS RAFAT METAB OLIC PANEL sodium 140 mmol/ L 135-14 6 normal Not Available [facility] [address], [address], 09/03/2022 12:31:20 09/03/19 23 09/03/2022 COMPR EHENS RAFAT METAB OLIC PANEL potassium 4.4 mmol/ L 3.5-5. 3 normal Not Available [facility] [address], [address], 09/03/2022 12:31:20 09/03/19 23 09/03/2022 COMPR EHENS RAFAT METAB OLIC PANEL chloride 102 mmol/ L 98-110 normal Not Available [address], [address], 09/03/2022 12:31:20 09/03/19 23 09/03/2022 COMPR EHENS RAFAT METAB OLIC PANEL carbon dioxide 28 mmol/ L 20-32 normal Not Available [address], [address], 09/03/2022 12:31:20 09/03/19 23 09/03/2022 COMPR EHENS RAFAT METAB OLIC PANEL calcium 9.2 mg/dL 8.6-10 .2 normal Not Available [address], [address], 09/03/2022 12:31:20 09/03/19 23 09/03/2022 COMPR EHENS RAFAT METAB OLIC PANEL protein, total 7.1 g/dL 6.1-8. 1 normal Not Available [address], [address], 09/03/2022 12:31:20 09/03/19 23 09/03/2022 COMPR EHENS RAFAT METAB OLIC PANEL albumin 4.1 g/dL 3.6-5. 1 normal Not Available [address], [address], 09/03/2022 12:31:20 09/03/19 23 09/03/2022 COMPR EHENS RAFAT METAB OLIC PANEL globulin 3.0 g/dL_ (calc ) 1.9-3. 7 normal Not Available [address], [address], 09/03/2022 12:31:20 09/03/19 23 09/03/2022 COMPR EHENS RAFAT METAB OLIC PANEL albumin/glob ulin ratio 1.4 (calc ) 1.0-2. 5 normal Not Available [address], [address], 09/03/2022 12:31:20 09/03/19 23 09/03/2022 COMPR EHENS RAFAT METAB OLIC PANEL bilirubin, total 0.3 mg/dL 0.2-1. 2 normal Not Available [address] [address] [place], [address], 09/03/2022 12:31:20 09/03/19 23 09/03/2022 COMPR EHENS RAFAT METAB OLIC PANEL alkaline phosphatase 127 U/L 31-125 high Not Available [address] [address] [place], [address], 09/03/2022 12:31:20 09/03/19 23 09/03/2022 COMPR EHENS RAFAT METAB OLIC PANEL AST 56 U/L 10-30 high Not Available [address], [address], 09/03/2022 12:31:20 09/03/19 23 09/03/2022 COMPR EHENS RAFAT METAB OLIC PANEL ALT 52 U/L 6-29 high Not Available [address], [address], 09/03/2022 12:31:20 09/03/19 23 09/03/2022 HEMOG LOBIN A1C hemoglobin A1C 5.7 %_of_ total _HGB <5.7 high For someo ne witho ut known diabe agnela, a hemog lobin A1c value betwe en 5.7% and 6.4% is consi stent with predi abete s and shoul d be confi rmed with a follo w-up test. For someo ne with known diabe angela, a value <7% indic ates that their diabe angela is well contr olled . A1c targe ts shoul d be indiv idual ized based on durat ion of diabe angela, age, comor bid condi tions , and other consi derat ions. This assay resul t is consi stent with an incre ased risk of diabe angela. Curre ntly, no conse nsus exist s regar greg use of hemog lobin A1c for diagn osis of diabe angela for child chepe. Not Available [facility] [address] [place], [address], 09/03/2022 12:31:21 09/03/19 23 09/03/2022 VITAM IN D,25- OH,TO VALERIY,I A vitamin D,25-oh,tota l,ia 53 NG/mL 30-100 normal Vitam in D Statu s 25-OH Vitam in D: Defic iency : <20 ng/mL Insuf ficie ncy: 20 - 29 ng/mL Optim al: > or = 30 ng/mL For 25-OH Vitam in D testi ng on patie nts on D2-melendrez pplem entat ion and patie nts for whom quant itati on of D2 and D3 fract ions is requi red, the [facility] e[facility](TM ) 25-OH VIT D, (D2,D 3), LC/MS /MS is recom summer d: order code 79646 (freddy ents >2yrs ). See Note 1 Note 1 For addit ional infor mariam jaime e refer to http: //grecia Causeyia gnost ics.c om/fa q/FAQ 199 (This link is being provi ded for infor jose l olivier/ valentin roper purpo ses only. ) Not Available [facility] [address] [place], [address], 09/03/2022 12:31:21 09/03/19 23 09/03/2022 TSH TSH 2.28 mIU/L normal Refer ence Range > or = 20 Years 0.40- 4.50 Pregn naresh Range s First trime ster 0.26- 2.66 Secon d trime ster 0.55- 2.73 Third trime ster 0.43- 2.91 Not Available [address], [address], 09/03/2022 12:31:22 09/03/19 23 09/03/2022 T4, FREE T4, free 0.9 NG/dL 0.8-1. 8 normal Not Available [address], [address], 09/03/2022 12:31:23 09/03/19 23 09/03/2022 CBC (INCL UDES DIFF/ PLT) white blood cell count 9.2 thous and/u L 3.8-10 .8 normal Not Available [address], [address], 09/03/2022 12:31:23 09/03/19 23 09/03/2022 CBC (INCL UDES DIFF/ PLT) red blood cell count 4.82 melisa on/uL 3.80-5 .10 normal Not Available [address], [address], 09/03/2022 12:31:23 09/03/19 23 09/03/2022 CBC (INCL UDES DIFF/ PLT) hemoglobin 12.6 g/dL 11.7-1 5.5 normal Not Available [address], [address], 09/03/2022 12:31:23 09/03/19 23 09/03/2022 CBC (INCL UDES DIFF/ PLT) hematocrit 40.1 % 35.0-4 5.0 normal Not Available [employer] [address], [address], 09/03/2022 12:31:23 09/03/19 23 09/03/2022 CBC (INCL UDES DIFF/ PLT) MCV 83.2 fL 80.0-1 00.0 normal Not Available [address], [address], 09/03/2022 12:31:23 09/03/19 23 09/03/2022 CBC (INCL UDES DIFF/ PLT) MCH 26.1 pg 27.0-3 3.0 low Not Available [address], [address], 09/03/2022 12:31:23 09/03/19 23 09/03/2022 CBC (INCL UDES DIFF/ PLT) MCHC 31.4 g/dL 32.0-3 6.0 low Not Available [address], [address], 09/03/2022 12:31:23 09/03/19 23 09/03/2022 CBC (INCL UDES DIFF/ PLT) RDW 14.1 % 11.0-1 5.0 normal Not Available [address], [address], 09/03/2022 12:31:23 09/03/19 23 09/03/2022 CBC (INCL UDES DIFF/ PLT) platelet count 249 thous and/u L 140-40 0 normal Not Available [address], [address], 09/03/2022 12:31:23 09/03/19 23 09/03/2022 CBC (INCL UDES DIFF/ PLT) MPV 10.9 fL 7.5-12 .5 normal Not Available [address], [address], 09/03/2022 12:31:23 09/03/19 23 09/03/2022 CBC (INCL UDES DIFF/ PLT) absolute neutrophils 6017 cells /uL 1500-7 800 normal Not Available [address], [address], 09/03/2022 12:31:23 09/03/19 23 09/03/2022 CBC (INCL UDES DIFF/ PLT) absolute lymphocytes 2429 cells /uL 850-39 00 normal Not Available [address], [address], 09/03/2022 12:31:23 09/03/19 23 09/03/2022 CBC (INCL UDES DIFF/ PLT) absolute monocytes 451 cells /uL 200-95 0 normal Not Available [address], [address], 09/03/2022 12:31:23 09/03/19 23 09/03/2022 CBC (INCL UDES DIFF/ PLT) absolute eosinophils 258 cells /uL 15-500 normal Not Available [address], [address], 09/03/2022 12:31:23 09/03/19 23 09/03/2022 CBC (INCL UDES DIFF/ PLT) absolute basophils 46 cells /uL 0-200 normal Not Available [address], [address], 09/03/2022 12:31:23 09/03/19 23 09/03/2022 CBC (INCL UDES DIFF/ PLT) neutrophils 65.4 % normal Not Available [address], [address], 09/03/2022 12:31:23 09/03/19 23 09/03/2022 CBC (INCL UDES DIFF/ PLT) lymphocytes 26.4 % normal Not Available [facility] [address], [address], 09/03/2022 12:31:23 09/03/19 23 09/03/2022 CBC (INCL UDES DIFF/ PLT) monocytes 4.9 % normal Not Available [facility] [address] [place], [address], 09/03/2022 12:31:23 09/03/19 23 09/03/2022 CBC (INCL UDES DIFF/ PLT) eosinophils 2.8 % normal Not Available [facility] [address] [place], [address], 09/03/2022 12:31:23 09/03/19 23 09/03/2022 CBC (INCL UDES DIFF/ PLT) basophils 0.5 % normal Not Available [facility] [address] [place], [address], 09/03/2022 12:31:23 05/24/19 22 05/21/2021 XR, shoul eric No observ ation record ed. [id number] [facility] [address] [place], [address], 04/05/2022 05:03:39 05/28/19 22 05/21/2021 MAMMO , scree darshana, digit al, bilat eral No observ ation record ed. [id number] [facility] [place] [facility], [place], [address], 04/05/2022 05:03:39 09/21/19 22 09/19/2021 XR, hip, unila teral No observ ation record ed. MIGRATION. [facility] [place] [address], [place], [address], 04/05/2022 05:03:39 02/13/19 23 01/06/2022 imagi ng/di agnos tic resul t No observ ation record ed. [id number] [facility] [address] [facility], [place], [address], 04/05/2022 05:03:39 02/27/19 23 02/27/2022 CT, abdom en + pelvi s, w/o contr ast No observ ation record ed. [id number] Not Available 04/05/2022 05:03:39 03/02/19 23 01/24/2022 upper endos copy proce dure (EGD) (PROC ) No observ ation record ed. [id number] Raudel Boyd MD [address] [place], [address], 04/05/2022 05:03:39 03/05/19 24 02/21/2022 colon oscop y scree darshana (PROC ) No observ ation record ed. [email or web address] [facility] [address] [place], [address], 03/05/2023 11:26:31 Result Notes None recorded. Problems Name Problem SNOMED Code Status Onset Date Resolution Date Notes Provider Name and Address Organization Details Recorded Time Kidney stone 56121060 Active 2022 MONROE Loera [address], [place], [address] , [employer] 3 15:52:05 Candidiasi s of vagina 06990430 Active 2022 MONROE Loera [address], [place], [address] , [employer] 3 15:52:09 Impaired glucose tolerance 4768670 Active 2022 MONROE Loera [address], [place], [address] , [employer] 3 16:05:49 Mixed hyperlipid emia 454862093 Active 2023 MONROE Loera [address], [place], [address] , [employer] 4 15:00:16 Pain of left shoulder joint 0572170297610 9109 Active 2021 Not Available [facility] 3 04:52:04 Gastroesop hageal reflux disease 041340935 Active 2018 Not Available [facility] 3 04:52:05 Long-term drug therapy Active 2021 Not Available [facility] 3 04:52:05 Pain in right hip joint 6233453114423 02 Active 2021 Not Available [facility] 3 04:52:05 Trochanter ic bursitis of right hip 1662511084271 00 Active 2021 Not Available [facility] 3 04:52:05 Vitamin D deficiency 56732554 Active 2020 Not Available [facility] 3 04:52:05 Seasonal allergic rhinitis 028804746 Active 2020 Not Available [facility] 3 04:52:05 Hip pain 38083538 Active 2021 Not Available [facility] 3 04:52:05 Cervical radiculopa thy 62623994 Active 2021 Not Available [facility] 3 04:52:05 Hyperlipid emia 48270520 Active 2018 Not Available [facility] 3 04:52:05 Degenerati on of cervical interverte bral disc 98963194 Active 2021 Not Available [facility] 3 04:52:05 Obstructiv e sleep apnea syndrome 87677615 Active 2018 Not Available [facility] 3 04:52:06 Problem Notes None recorded. Procedures Surgical History Date Name Laterality Status Provider Name and Address Organization Details Recorded Time 02/05/19 21 Removal of ovary(s) completed Not Available [facility] 04/05/2022 04:42:31 06/06/19 19 Date of Last Colonoscopy completed Not Available [facility] 04/05/2022 04:42:29 06/06/19 18 Cholecystectomy completed Not Available [facility] 04/05/2022 04:42:31 02/14/19 17 Carpal tunnel surgery completed Not Available [facility] 04/05/2022 04:42:31 10/07/19 15 colonoscopy completed Not Available [facility] 04/05/2022 04:42:31 Imaging Results Imaging Date Name Status LastModified by Organization Details LastModified Time 05/21/2021 XR, shoulder completed [id number] [facility] [address] [place], [address], 04/05/2022 05:03:39 05/21/2021 MAMMO, screening, digital, bilateral completed [id number] [facility], [address], 04/05/2022 05:03:39 01/06/2022 imaging/diagnos tic result completed [id number] [facility] [address] [place], [address], 04/05/2022 05:03:39 02/27/2022 CT, abdomen + pelvis, w/o contrast completed [id number] Information not available 04/05/2022 05:03:39 01/24/2022 upper endoscopy procedure (EGD) (PROC) completed [id number] Raudel Boyd MD [address] [place], [address], 04/05/2022 05:03:39 09/19/2021 XR, hip, unilateral completed [id number] [facility] [place] [address], [place], [address], 04/05/2022 05:03:39 02/21/2022 colonoscopy screening (PROC) completed [address] [facility] [address] [place], [address], 03/05/2023 11:26:31 Procedure Notes None recorded. Medical Equipment None Reported. Allergies Allergen ID Allergen Name Allergen Category Reaction Reaction Severity Criticality Documentation Date Start Date Code Code System Note Provider Name and Address Organization Details Recorded Time 7899 doxycycli ne Not available Not available Not available Not available 04/05/2022 3640 RxNorm Not Available [facility] 3 05:03:11 7900 Augmentin medicatio n vomiting Not available Not available 04/05/20222017 69483 2 RxNorm Not Available [facility] 3 05:03:11 7902 amoxicill in medicatio n Not available Not available Not available 04/05/2022 723 RxNorm Not Available [facility] 3 05:03:11 Medications Name Sig Start Date Stop Date Status Note LastModified by Organization Details LastModified Time cyclobenz aprine 10 mg tablet TAKE 1 TABLET BY MOUTH THREE TIMES DAILY 08/09 completed Not Available Not Available Not Available amoxicill in 500 mg capsule 04/02 completed Not Available Not Available Not Available methocarb srinath 500 mg tablet TAKE 2 TABLETS BY MOUTH EVERY 6 HOURS NEEDED 09/16 completed Not Available Not Available Not Available metformin 500 mg tablet TAKE 1 TABLET BY MOUTH TWICE DAILY WITH MEAL active Not Available Not Available No t Available Augmentin 875 mg-125 mg tablet Take 1 tablet every 12 hours by oral route. 04/04 completed Not Available Not Available Not Available clindamyc in HCl 300 mg capsule TAKE 1 CAPSULE BY MOUTH FOUR TIMES DAILY UNTIL GONE 05/02 completed Not Available Not Available Not Available albuterol sulfate 2.5 mg/3 mL (0.083 %) solution for nebulizat ion Inhale 3 mL every day by nebuliza tion route as directed . 10/02 completed Internal note: [facility] [id number] 1Externa l note: [id number], , 07 Not Available Not Available Not Available hydrocort isone-pra moxine 2.5 %-1 % rectal cream Insert 1 applicat ion 3 times a day by rectal route as directed . 10/02 completed Not Available Not Available Not Available triazolam 0.25 mg tablet TAKE 1 TABLET BY MOUTH 1 HOUR PRIOR TO APPT 05/05 completed Not Available Not Available Not Available azithromy abbey 250 mg tablet TAKE 2 TABLETS (500 MG) BY ORAL ROUTE ONCE DAILY FOR 1 DAY THEN 1 TABLET (250 MG) BY ORAL ROUTE ONCE DAILY FOR 4 DAYS 11/20 completed Not Available Not Available Not Available ibuprofen 800 mg tablet TAKE 1 TABLET EVERY 6 HOURS NEEDED 09/16 completed Not Available Not Available Not Available Lidocaine Viscous 2 % mucosal solution 08/30 completed Not Available Not Available Not Available fluconazo le 150 mg tablet TAKE 1 TABLET BY MOUTH ONCE active Not Available Not Available No t Available ranitidin e 300 mg tablet TK 1 T PO BID 06/05 completed Not Available Not Available Not Available hydrocodo ne 5 mg-acetam inophen 325 mg tablet TAKE 1 TABLET BY MOUTH EVERY 6 HOURS NEEDED FOR PAIN active Not Available Not Available No t Available meloxicam 15 mg tablet TAKE 1 TABLET BY MOUTH EVERY DAY 08/09 completed Not Available Not Available Not Available ondansetr on HCl 4 mg tablet TAKE 1 TABLET BY MOUTH EVERY 4 TO 6 HOURS NEEDED active Not Available Not Available No t Available prednison e 20 mg tablet TAKE 2 TABLETS BY MOUTH DAILY FOR 5 DAYS 05/02 completed Not Available Not Available Not Available sertralin e 100 mg tablet TAKE 1.5 TABLETS BY MOUTH DAILY active Not Available Not Available No t Available terconazo le 0.8 % vaginal cream U 1 VAGINALL Y HS 03/01 completed Not Available Not Available Not Available Yaritza Low Dose Aspirin 81 mg tablet,de layed release Take 1 tablet every day by oral route. 10/02 completed Not Available Not Available Not Available diphenoxy late-atro pine 2.5 mg-0.025 mg tablet TK ONE T PO Q 6 H PRN 05/24 completed Not Available Not Available Not Available penicilli n V potassium 500 mg tablet TK 1 T PO BID FOR 10 DAYS 01/01 completed Not Available Not Available Not Available metronida zole 500 mg tablet TK 1 T PO Q 8 H 01/03 completed Not Available Not Available Not Available acetamino phen 300 mg-codein e 30 mg tablet TAKE 1 TO 2 TABLETS BY MOUTH EVERY 8 HOURS NEEDED FOR PAIN 05/05 completed Not Available Not Available Not Available ciproflox acin 500 mg tablet 06/02 completed Not Available Not Available Not Available sulfameth oxazole 800 mg-trimet hoprim 160 mg tablet Take 1 tablet every 12 hours by oral route. 08/30 completed Not Available Not Available Not Available peg-elect rolyte solution 420 gram oral solution TAKE BY MOUTH DIRECTED BY OFFICE 08/04 completed Not Available Not Available Not Available omeprazol e 40 mg capsule,d elayed release active Not Available Not Available Not Available tramadol 50 mg tablet TAKE 1-2 TABLET EVERY 6 HOURS NEEDED FOR PAIN 05/05 completed Not Available Not Available Not Available nystatin- triamcino lone 100,000 unit/gram -0.1 % topical ointment 10/02 completed Not Available Not Available Not Available oxycodone -acetamin ophen 5 mg-325 mg tablet TAKE 1 TABLET BY MOUTH EVERY 6 HOURS NEEDED FOR PAIN 01/03 completed Not Available Not Available Not Available alprazola m 0.5 mg tablet TK 1 T PO Q 8 H PRN 06/05 completed Not Available Not Available Not Available amoxicill in 875 mg tablet Take 1 tablet every 12 hours by oral route. 08/30 completed Not Available Not Available Not Available metoclopr amide 5 mg tablet 05/04 completed Not Available Not Available Not Available tamsulosi n 0.4 mg capsule TAKE 1 CAPSULE BY MOUTH DAILY 08/09 completed Not Available Not Available Not Available dicyclomi ne 20 mg tablet TK 1 T PO BID 10/02 completed Not Available Not Available Not Available Proctozon e-HC 2.5 % topical cream perineal applicato r active Not Available Not Available Not Available meclizine 25 mg tablet TK 1 T PO BID PRN 06/05 completed Not Available Not Available Not Available benzonata te 100 mg capsule 08/30 completed Not Available Not Available Not Available hydrocodo ne 7.5 mg-acetam inophen 325 mg tablet 06/02 completed Not Available Not Available Not Available cephalexi n 500 mg capsule TAKE ONE CAPSULE BY MOUTH TWICE DAILY FOR ACUTE OPIOID THERAPY DAYS active Not Available Not Available No t Available naproxen sodium 550 mg tablet TK 1 T PO BID PRN 06/05 completed Not Available Not Available Not Available clotrimaz ole-betam ethasone 1 %-0.05 % topical cream APPLY TO AFFECTED AREA BID FOR 2 WEEKS 06/05 completed Not Available Not Available Not Available promethaz ine 25 mg tablet TAKE 1/2 TABLET BY MOUTH EVERY 6 HOURS NEEDED FOR NAUSEA 08/09 completed Not Available Not Available Not Available mometason e 50 mcg/actua tion nasal spray Holmes 2 sprays every day by intranas al route. 10/02 completed Not Available Not Available Not Available omeprazol e 20 mg capsule,d elayed release TAKE 1 CAPSULE BY MOUTH DAILY BEFORE A MEAL 08/09 completed Not Available Not Available Not Available monteluka st 10 mg tablet TAKE 1 TABLET BY MOUTH EVERY DAY NEEDED active Not Available Not Available No t Available hydroxyzi ne HCl 25 mg tablet TAKE 1 TABLET BY MOUTH EVERY 6 HOURS NEEDED 05/04 completed Not Available Not Available Not Available lisinopri l 5 mg tablet TK 1 T PO QD 07/14 completed Not Available Not Available Not Available ergocalci ferol (vitamin D2) 1,250 mcg (50,000 unit) capsule TAKE 1 CAPSULE BY MOUTH 1 TIME EVERY WEEK active Not Available Not Available No t Available diazepam 10 mg tablet TAKE 1 TABLET BY MOUTH 1 HOUR PRIOR TO PROCEDUR E 05/04 completed Not Available Not Available Not Available ibuprofen 600 mg tablet TK 1 T PO Q 6 HOURS PRN P active Not Available Not Available No t Available levofloxa abbey 500 mg tablet 01/03 completed Not Available Not Available Not Available methylpre dnisolone 4 mg tablets in a dose pack FOLLOW PACKAGE DIRECTIO NS 05/02 completed Not Available Not Available Not Available hydrocodo ne 10 mg-chlorp heniramin e 8 mg/5 mL oral susp extend.re l 12hr TAKE 5ML BY MOUTH EVERY 12 HOURS NEEDED 10/02 completed Not Available Not Available Not Available PreviDent 5000 Plus 1.1 % cream FPD. 05/04 completed Not Available Not Available Not Available ondansetr on 4 mg disintegr ating tablet DISSOLVE 1 TABLET ON TOP OF THE TONGUE THEN SWALLOW FOUR TIMES DAILY. 08/04 completed Not Available Not Available Not Available cefdinir 300 mg capsule Take 1 capsule every 12 hours by oral route. active Not Available Not Available No t Available fluoxetin e 20 mg capsule TK 1 C PO QD 06/05 completed Not Available Not Available Not Available fluticaso ne propionat e 50 mcg/actua tion nasal spray,contreras pension SHAKE LIQUID AND USE 1 SPRAY IN EACH NOSTRIL DAILY FOR 7 DAYS 08/09 completed Not Available Not Available Not Available sertralin e 50 mg tablet TK 1 T PO QD 06/02 completed Not Available Not Available Not Available colestipo l 1 gram tablet one daily active Not Available Not Available No t Available dicyclomi ne 10 mg capsule active Not Available Not Available Not Available diazepam 5 mg tablet Take 1 tablet every 6 hours by oral route as needed for 2 days. 08/09 completed Not Available Not Available Not Available azithromy abbey 500 mg tablet 08/30 completed Not Available Not Available Not Available rosuvasta tin 10 mg tablet TAKE 1 TABLET BY MOUTH EVERY DAY IN THE EVENING active Not Available Not Available No t Available bupropion HCl XL 150 mg 24 hr tablet, extended release TK 1 T PO QD 10/02 completed Not Available Not Available Not Available nitrofura ntoin monohydra te/macroc rystals 100 mg capsule TK 1 C PO Q 12 H FOR 5 DAYS 08/04 completed Not Available Not Available Not Available Lutera (28) 0.1 mg-20 mcg tablet TK 1 T PO QD active Not Available Not Available No t Available chlorhexi dine gluconate 0.12 % mouthwash SWISH AND SPIT WITH 1/2 OUNCE BID FOR 30 SECONDS 06/02 completed Not Available Not Available Not Available Fish Oil otc, takes daily 05/05 completed Not Available Not Available Not Available multivita min otc, takes daily 2019 active Not Available Not Available Not Avai lable Vitamin one daily 11/20 completed Not Available Not Available Not Available Zyrtec 10 mg capsule Take 1 capsule every day by oral route. 03/01 completed Not Available Not Available Not Available B12 05/05 completed Not Available Not Available Not Available PreviDent 5000 Booster Plus 1.1 % dental paste USE DIRECTED active Not Available Not Available No t Available Virtussin AC 10 mg-100 mg/5 mL oral liquid TAKE 10 ML BY MOUTH EVERY 4 TO 6 HOURS NEEDED active Not Available Not Available No t Available Contrave 8 mg-90 mg tablet,ex tended release TK 2 T PO BID 08/30 completed Not Available Not Available Not Available Vitamin B12 takes one daily 08/30 completed Not Available Not Available Not Available BinaxNOW COVID-19 Ag Self Test kit TEST DIRECTED TODAY 08/04 completed Not Available Not Available Not Available Vitals Date Recorded Body mass index (BMI) Body height Oxygen saturation Oxygen saturation in Arterial blood by Pulse oximetry Heart rate Body temperature Body weight Systolic blood pressure Diastolic blood pressure Provider Name and Address Organization Details Last Updated DateTime 1 45.6 kg/m2 170.18 cm 98 % 98 % 69 /min 97.7 [degF] 491818. 82 g 130 mm[Hg] 80 mm[Hg] Not Available [facility] 3 04:49:12 Date Recorded Body mass index (BMI) Body height Oxygen saturation Oxygen saturation in Arterial blood by Pulse oximetry Heart rate Body temperature Body weight Systolic blood pressure Diastolic blood pressure Provider Name and Address Organization Details Last Updated DateTime 1 48.5 kg/m2 170.18 cm 97 % 97 % 110 /min 97.6 [degF] 320009. 2 g 130 mm[Hg] 80 mm[Hg] Not Available [facility] 3 04:49:12 Date Recorded Body mass index (BMI) Body height Oxygen saturation Oxygen saturation in Arterial blood by Pulse oximetry Heart rate Respiratory rate Body temperature Body weight Systolic blood pressure Diastolic blood pressure Provider Name and Address Organization Details Last Updated DateTime 2 48.5 kg/m2 170.18 cm 98 % 98 % 99 /min 16 /min 98 [degF] 051881. 2 g 132 mm[Hg] 90 mm[Hg] Not Available [facility] 3 04:49:12 Date Recorded Body mass index (BMI) Body height Oxygen saturation Oxygen saturation in Arterial blood by Pulse oximetry Heart rate Body temperature Body weight Systolic blood pressure Diastolic blood pressure Provider Name and Address Organization Details Last Updated DateTime 2 48.7 kg/m2 170.18 cm 97 % 97 % 85 /min 97.3 [degF] 151459. 23 g 120 mm[Hg] 74 mm[Hg] Not Available [facility] 3 04:49:13 Date Recorded Body height Body temperature Body mass index (BMI) Body weight Respiratory rate Oxygen saturation Oxygen saturation in Arterial blood by Pulse oximetry Heart rate Systolic blood pressure Diastolic blood pressure Provider Name and Address Organization Details Last Updated DateTime 3 170.18 cm 97.2 [degF] 48.7 kg/m2 871787. 23 g 16 /min 97 % 97 % 75 /min 128 mm[Hg] 80 mm[Hg] MASON Siegel [place] - [facility] 15:45:31 Social History Question Answer Notes LastModified by Organizat ion Details LastModified Time Tobacco Smoking Status Former Smoker Not Available [facility] 04/05/2022 04:41:41 What Is Your Level Of Alcohol Consumption? Occasional [id number] Information not available 04/05/2022 What Is Your Level Of Caffeine Consumption? Heavy MIGRATION.465103 2801 Information not available 04/05/2022 How Much Tobacco Do You Chew? None [id number].897059 1900 Information not available 04/05/2022 In The 14 Days Before Symptom Onset, Have You Had Close Contact With A Laboratory-confir med COVID-19 While That Case Was Ill? No [id number] Information not available 04/05/2022 In The 14 Days Before Symptom Onset, Have You Had Close Contact With A Person Who Is Under Investigation For COVID-19 While That Person Was Ill? No [id number].745483 1516 Information not available 04/05/2022 Are You Currently Employed? Yes [email or web address] Information not available 08/04/2022 What Type Of Diet Are You Following? REGULAR MIGRATION.727733 0457 Information not available 04/05/2022 Which Illicit Or Recreational Drugs Have You Used? None MIGRATION.[id number] Information not available 04/05/2022 What Is Your Occupation? [employer] MIGRATION.195018 6551 Information not available 04/05/2022 Have There Been Any Changes To Your Family Or Social Situation? No MIGRATION.648977 5635 Information not available 04/05/2022 Are There Any Guns Present In Your Home? No MIGRATION.957931 9825 Information not available 04/05/2022 Do You Use Insect Repellent Routinely? No MIGRATION.193202 4549 Information not available 04/05/2022 What Was The Date Of Your Most Recent Tobacco Screening? 09/16/2021 MIGRATION.[id number] 6867 Information not available 04/05/2022 What Is Your Relationship Status? MIGRATION.233062 3432 Information not available 04/05/2022 Do You Use Your Seat Belt Or Car Seat Routinely? Yes MIGRATION.145477 5138 Information not available 04/05/2022 Do You Have Smoke And Carbon Monoxide Detectors In Your Home? Yes MIGRATION.781705 6844 Information not available 04/05/2022 How Much Tobacco Do You Smoke? 1 PPW MIGRATION.672203 1451 Information not available 04/05/2022 Do You Use Any Illicit Or Recreational Drugs? No MIGRATION.705251 7124 Information not available 04/05/2022 Do You Use Sunscreen Routinely? Yes MIGRATION.322969 2525 Information not available 04/05/2022 Have You Recently Traveled Abroad? No MIGRATION.643244 9303 Information not available 04/05/2022 Do You Have Any Dietary Restrictions? No MIGRATION.415311 8450 Information not available 04/05/2022 Do You Or Have You Ever Used Any Other Forms Of Tobacco Or Nicotine? No MIGRATION.196329 1220 Information not available 04/05/2022 Sex: Unknown Functional Status Question Answer Note LastModified by Organizat ion Details LastModified Time What is your exercise level? Occasional [id number] Information not available 04/05/2022 Mental Status None recorded. Family History Relationship Description Onset Age of this Age Resolved Age Notes LastModified by Organization Details LastModified Time Mother Gastroesopha geal reflux disease [id number] Not available 04/05/2022 04:42:37 Father Migraine [id number] Not available 04/05/2022 04:42:37 Sister Malignant melanoma MIGRATION.[id number] Not available 04/05/2022 04:42:37 Sister Multiple sclerosis [id number] [id number] Not available 04/05/2022 04:42:37 Sister Malignant neoplasm of skin MIGRATION.[id number] Not available 04/05/2022 04:42:37 Medical History Condition Response KIDNEY STONES Y SLEEP APNEA Y SKIN PROBLEMS Y HEARTBURN / REFLUX Y HIGH CHOLESTEROL / HYPERLIPIDEMIA Y EYE PROBLEMS Y BOWEL PROBLEMS Y BACK / NECK PROBLEMS Y HEADACHES/MIGRAINES Y DIZZINESS Y Deficiency Y CARDIAC ARRHYTHMIA Y OBESITY Y URINARY/BLADDER/KIDNEY PROBLEMS Y Gynecological History Statement/Question Response Abnormal Pap Y Date of Last Pap 02/06/2016 Date of Last Mammogram 05/21/2021 Date of Last Colonoscopy 06/05/2018 Sexually Active? Y Obstetrics History GPAL:G 0 P 0 0 0 0 Immunizations Vaccine Type Date Status Note Provider Nam e and Address Organization Details Recorded Time HPV, unspecified formulation 1 completed Not Available [facility] 04/05/2022 05:02:56 COVID-19, mRNA, LNP-S, PF, 100 mcg/0.5mL dose or 50 mcg/0.25mL dose 1 completed Not Available [facility] 04/05/2022 05:02:57 COVID-19, mRNA, LNP-S, PF, 100 mcg/0.5mL dose or 50 mcg/0.25mL dose 1 completed Not Available [facility] 04/05/2022 05:02:57 influenza, unspecified formulation 6 completed Not Available [facility] 04/05/2022 05:02:57 Past Encounters Encounter ID Performer Location Encounter Start Date Encounter Closed Date Diagnosis/Indication Diagnosis SNOMED-CT Code Diagnosis ICD10 Code Diagnosis Note [id number] [facility] [place] [address] [place] [address] 05/24/2020 00:00:00 06/04/2020 20:56:28 [id number] [facility] [place] [address] [place] [address] 10/22/2020 00:00:00 10/24/2020 16:38:56 [id number] [facility] [place] [address] [place] [address] 12/24/2020 00:00:00 01/04/2021 23:50:16 [id number] [facility] [place] [address] [place] [address] 05/05/2021 00:00:00 05/05/2021 12:15:21 [id number] [facility] [place] [address] [place] [address] 09/16/2021 00:00:00 10/02/2021 23:43:45 [id number] MONROE Loera [facility] [place] [address] [place] [address] 08/09/2022 15:31:25 08/09/2022 16:09:27 Kidney stone 61856369 N20.0 following up with Urology. Candidiasis of vagina 72 275862 B37.31 rx for diflucan course Impaired g lucose tolerance 4546305 R73.03 due for A1c lab Hyperlipidemia 85832695 E78.5 due for fasting lipids Thyroid di sorder screening [id number] Z13.29 thyroid labs due Vitamin D deficiency 347 81241 E55.9 vit D lab due Long-term drug therapy [id number] Z79.899 cbc and cmp repeat ordered. Health Concerns Section Related Observation LastModified by Organization Detai ls LastModified Time None Recorded Concern Status LastModified by Organization Details LastModified Time None Recorded Advance Directives Directive None Recorded Payers Encounter Date Sequence Insurance Name Policy Number Policy Conklin Covered Member ID Conklin Member ID Guarantor Name 08/09/2022 1 [facility] [id number] Linda Janeth Anita [id number] Linda Janeth Antia 08/09/2022 2 [facility] (POS II) [id number] [place] Anita [id number] Linda Janeth Anita Notes Date Note Type Note Provider Name and Address Organization Details Recorded Time 1 text/html Abdominal PainReported bypatient.Location:RUQ; LUQ Quality:pain;bloating;c ramping;tender; Radiating to her back Severity:moderate; pain level 4/10 Duration:constant Onset/Timing:wax/wane Aggravating Factors:pushing down under sternum Alleviating Factors:warm soup Associated Symptoms:nausea;vomitin g;diarrhea; vomiting blood Other:denies possible Pain Radiation:around the back;through the backNauseaReported bypatient.LocationLUQ; RUQ; epigastric Quality:intermittent Severity:moderate Onset/Timing:abrupt onset; still present Contextno drug/alcohol abuse; no one else with similar symptoms; no recent camping; no recent picnic; no possible food sources Alleviating factors:nothing helps Aggravating factors:eating Associated Symptoms:abdominal pain;diarrhea;heartburn Not Available [facility] 10/24/2020 16:38:56 1 text/html NeckReported bypatient.Location:bila teral Quality:aching; burning; gnawing; throbbing; sharp; constant; worsening Severity:severe; pain level 6/10; worst pain 9/10 Duration:1 months Timing:chronic Context:cannot identify Alleviating Factors:nothing helps Aggravating Factors:sitting; standing; walking; lifting; carrying; twisting; bending/squatting; pushing/pulling; throwing; weightbearing Associated Symptoms:no swelling; no redness; no warmth; no ecchymosis; no catching/locking; no buckling; no grinding; no instability; no drainage; no fever; no chills; no weight loss; no change in bowel/bladder habits;weakness;numbnes s;tingling;popping/clic ernie;radiation down arm Previous Surgery:none Prior Imaging:none Previous Injections:none Previous PT:none Work Related:no Working:noNotes:pain management has injection scheduled but wont give her any pain med to bridge her to that procedure Not Available [employer] 01/04/2021 23:50:16 2 text/html Generic HPI TemplateReported bypatient.Location:L arm and up into L side of neckNotes:Pt is here for an e/r f/u from 04/25/21 for neck and arm pain. They gave her a toradol injection and methylprednisolone injection. No imaging was done there. She has seen PM for this in the past before for cervical DDD and radicular pain. Has had 2 epidurals prior. She has another scheduled for the , soonest they could see her. . Today she says the pain is a little better then when she was at the e/r but it is still early today. She says by the end of the day its worse. Right now its 710 that is a constant throbbing/burning pain. She does not recall anything recent that could have flared this back up. Not Available [employer] 05/05/2021 12:15:21 2 text/html Hip(s)Reported bypatient.Location:righ t Quality:aching; stabbing Aggravating Factors:sitting; twisting; bending/squatting; getting out of bed; going from sit to stand Associated Symptoms:no numbness; no tingling; no swelling; no redness; no warmth; no ecchymosis; no buckling; no grinding; no instability; no drainage; no fever; no chills; no weight loss; no change in bowel/bladder habits;weakness;catchin g/locking;popping/click ing;radiation down leg Not Available [employer] 10/02/2021 23:43:45 3 text/html Generic HPI TemplateReported bypatient.Notes:Pt is here for an e/r f/u from 07/24/22 for RLQ pain. They did tests and found she has a kidney stone. Records are in the room w/her. They did eswl. As of this morning she was still having sand when she urinated and slight pain in back. She does have a yeast infection from all the abx they gave her and would like an abx. MONROE Loera [address] [facility] [facility] [address], [place], [address], [employer] 09/04/2022 22:34:14 OBGyn Episode No OBEpisode recorded.
[2024-04-08] MEDS: KETOROLAC 30 MG/ML VIAL (*BKC) IM (15:01)
--- OUTSIDE RECORDS SUMMARY | 2024-04-08 15:08 | XMS_ITS | Clinical Summary ---
Author Organization [facility] Address [facility] [place] [address] Care Team Providers Care Park Warden Name Role Phone Caseyjosé miguel Suni MONROE Primary Care Provider [phone] Allergies Active Allergy Reactions Criticality Noted Date Comments Amoxicillin-Pot Clavulanate Nausea and Vomiting,Vomiting 04/04/2017 Doxycycline Hives Medium 10/29/2015 Sulfa Antibiotics Vomiting 11/28/2020 Medications sertraline 100 MG tablet Take 1.5 tablets (150 mg total) by mouth nightly. 1 Active rosuvastatin 10 MG tablet Take 1 tablet (10 mg total) by mouth every evening. 1 Active vitamin D2, ergocalciferol, (DRISDOL) 33881 UNITS capsule Take 1 capsule (1.25 mg [...] often do you attend chur ch or orthodoxy services? Never 09/03/2022 Do you belong to any clubs o r organizations such as mormonism groups, unions, fraternal or athletic groups, or [...] and heating? Not hard at all 09/03/2022 [facility] Occupat ional Health - Occupational Stress [...] place to sleep or slept in a assisted (including now)? No 09/03/2022 Education Answer Date Recorded What is the highest level of school you have completed or the highest degree you have received? 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 Stent Right: Ureter [employer] [id number] 04/06/2025 [id number] 40 / / [id number] Stent Ureteral 6fr 26cm Pigtl Crv Taper Tip Bldr Mrk - [id number] Implanted:Qty : 1 on 09/08/2022 by Andi Espinoza MD at [facility] Stent Right: Ureter [employer] [id number] 04/23/2025 [id number] 30 / / [id number] Procedures Procedure Name Priority Date/Time Associated Diagnosis [...] Most Recently Relevant to Health Maintenance [facility] Advance Directives * Full Code (Latest Code Status on File) Date Activated Date Inactivated Comments 09/03/2022 10:09 AM 09/04/2022 3:33 PM * Full Code Date Activated Date Inactivated Comments 07/25/2022 12:02 AM 07/25/2022 9:18 PM Care Teams Park Warden Relationship Specialty Start Date End Date Suni Quiroga PA [address] [place] [address] PCP - General PHYSICIAN DRIVE THRU ORDER TAKER 12/20/18
--- OUTSIDE RECORDS SUMMARY | 2024-04-08 15:08 | XMS_ITS | Clinical Summary ---
Author Organization [facility] Address [address] [place] [address] Care Team Providers Care Merchant Banker Name Role Phone Unavailable Primary Care Provider [...]
--- OUTSIDE RECORDS SUMMARY | 2024-04-08 15:08 | XMS_ITS | Referral Summary ---
Author Organization [facility] Address [address] [place] [address] Care Team Providers Care Entry Level Electrical Engineer Name Role Phone Unavailable Primary Care Provider [...]
--- OUTSIDE RECORDS SUMMARY | 2024-04-08 15:08 | XMS_ITS | Referral Summary ---
Author Organization [facility] [employer] Address [address] [place] [address] Care Team Providers Care Piano Tuner Name Role Phone Unavailable Primary Care Provider Unavailabl e Source Comments [facility],non-owned Affiliates and Associated Physician Practices is amultiple site organization consisting of ambulatory clinics and hospital sitesin [place], [place], [place] and [place]. This disclosure is being madepursuant to the Care Everywhere program and may not contain all information available regarding this patient. Last updated 17.[facility] Allergies Active Allergy Reactions Criticality Noted Date Comments Augmentin Nausea and/or Vomiting 05/01/2017 Doxycycline Urticaria Medium 10/29/2015 Medications * Be aware that medications may not be up to date on this document. Alwaysverify current medications with the patient. Medication Sig Dispensed Refills Start Date End Date Status vitamin D, ergocalciferol, (DRISDOL) 29091 UNITS capsule Take 50,000 Units by mouth every 30 days Active Cyanocobalamin (VITAMIN B 12 PO) Active omeprazole (PRILOSEC) 10 MG capsule Take 10 mg by mouth daily before breakfast Active SERTRALINE HCL PO Active METFORMIN & DIET MANAGE PROD PO Active MONTELUKAST SODIUM PO Act chad MV-Min-Fe Fum-FA-DHA ( 1 PO) Active Active Problems Problem Noted Date Diagnosed Date GERD (gastroesophageal reflux disease) 6 IBS (irritable bowel syndrome) 10/29/2015 Vitamin D deficiency 10/29/2015 Vitamin B deficiency 10/29/2015 Social History Tobacco Use Types Packs/Day Years Used Date Smoking Tobacco: Former Cigarettes 0.5 10 2 004 - 2013 Smokeless Tobacco: Never Alcohol Use Standard Drinks/Week Comments Yes 0 (1 standard drink = 0.6 oz pur e alcohol) occasionally socially Sex and Gender Information Value Date Recorded Sex Assigned at Not on file Gender Identity Not on file Sexual Orientation Not on file Last Filed Vital Signs Vital Sign Reading Time Taken Comments Blood Pressure 116/70 08/05/2018 3:58 PM CDT Pulse 64 08/05/2018 3:58 PM CDT Temperature 36.7 C (98 F) 08/05/2018 3:58 PM CDT Respiratory Rate 16 08/05/2018 3:58 PM CDT Oxygen Saturation 97% 08/05/2018 3:58 PM CDT Inhaled Oxygen Concentration - - Weight 142.9 kg (315 lb) 08/05/2018 3:58 PM CDT Height 170.2 cm (5' 7 ) 08/05/2018 3:58 PM CDT Body Mass Index 49.34 08/05/2018 3:58 PM CDT Plan of Treatment Not on file
--- OUTSIDE RECORDS SUMMARY | 2024-04-08 15:08 | XMS_ITS | Clinical Summary ---
Author Organization [facility] [employer] Address [address] [facility] [place] [address] Care Team Providers Care Windows Architect Name Role Phone Unavailable Primary Care Provider Unavailabl e Source Comments [facility] [employer],non-owned Affiliates and Associated Physician Practices is amultiple site organization consisting of ambulatory clinics and hospital sitesin [place], [place], [place] and [place]. This disclosure is being madepursuant to the Care Everywhere program and may not contain all information available regarding this patient. Last updated 17.[facility] [employer] Allergies Active Allergy Reactions Criticality Noted Date Comments Augmentin Nausea and/or Vomiting 05/01/2017 Doxycycline Urticaria Medium 10/29/2015 Medications * Be aware that medications may not be up to date on this document. Alwaysverify current medications with the patient. Medication Sig Dispensed Refills Start Date End Date Status vitamin D, ergocalciferol, (DRISDOL) 43798 UNITS capsule Take 50,000 Units by mouth [...] D deficiency 10/29/2015 Vitamin B deficiency 10/29/2015 Family History Medical History Relation Name Comments Cancer - Skin, Non Melanoma Maternal Grandfather Cancer - Skin, Non Melanoma Sister Relation Name Status Comments Maternal Grandfather Alive Sister Alive Social History Tobacco Use Types Packs/Day Years Used Date Smoking Tobacco: Former Cigarettes 0.5 10 2 004 - 2014 Smokeless Tobacco: Never Alcohol Use Standard Drinks/Week [...] 08/05/2018 3:58 PM CDT Plan of Treatment Health Maintenance Due Date Last Done Comments LIPID TESTING 1979 MAMMOGRAM 1979 PAP SMEAR 1979 HIV SCREENING 09/09/1994 HEPATITIS C SCREENING 09/05/1997 DTAP/TDAP/TD VACCINES (1 - Tdap) 09/09/1998 HEPATITIS B VACCINE (1 of 3 - 19+ 3-dose series) 09/09/1998 COVID-19 VACCINE ( - 2023-2 5 season) 2023 INFLUENZA VACCINE (#1) 2023 DEPRESSION SCREENING 02/06/2024 ZOSTER VACCINE (1 of 2) 09/09/2029 HIB VACCINE Aged Out No longer eligi ble based on patient's age to complete this topic HPV VACCINE Aged Out No longer eligi ble based on patient's age to complete this topic MENINGOCOCCAL (Group B) VACCINE Aged Out No longer eligible based on patient's age to complete this topic MENINGOCOCCAL VACCINE Aged Out No angella tristan eligible based on patient's age to complete this topic PNEUMOCOCCAL VACCINE Aged Out No long er eligible based on patient's age to complete this topic
--- OUTSIDE RECORDS SUMMARY | 2024-04-08 15:09 | XMS_ITS | Encounter Summary ---
Author Organization [facility] Address [address] [facility] [place] [address] Care Team Providers Care Casino Accountant Name Role Phone Unavailable Primary Care Provider Unavailabl e Encounter Details Date Type Department Care Team (Late st Contact Info) Description 09/04/2023 Lab Requisition [facility] - DermPath Lab [address] [place] [id number] Roberto Zhao MD [facility] DERMATOLOGY [address] [place] [phone] Other seborrheic keratosis; Other disturbances of skin sensation Social History Tobacco Use Types Packs/Day Years Used Date Smoking Tobacco: Former Cigarettes 0.5 10 2 2013 Smokeless Tobacco: Never Alcohol Use Standard Drinks/Week Comments Yes 0 (1 standard drink = 0.6 oz pur e alcohol) occasionally socially Sex and Gender Information Value Date Recorded Sex Assigned at Not on file Gender Identity Not on file Sexual Orientation Not on file documented as of this encounter Plan of Treatment Not on file documented as of this encounter Procedures Procedure Name Priority Date/Time Associated Diagnosis Comments DERMATOPATHOLOGY Routine 09/04/2023 12:0 0 AM CDT Other seborrheic keratosis Other disturbances of skin sensation documented in this encounter Results * DERMATOPATHOLOGY (09/04/2023 12:00 AM CDT) Case Report Dermatopathology Report Case: [id number] Authorizing Provider: Roberto Zhao MD Collected: 09/04/2023 12:00 AM Ordering Location: [facility] - Received: 09/05/2023 12:52 PM DermPath Lab Pathologist: Caro Burkett MD Specimen: Skin, right forearm 2:23 PM CDT DERMATOPATHOLOGY LABORATORY Final Diagnosis Specimen A. SKIN, right forearm: BENIGN VERRUCOUS KERATOSIS, SUPERFICIAL PORTIONS OF (L82.1) (see microscopic description) 2:23 PM CDT DERMATOPATHOLOGY LABORATORY Clinical History SK 2:23 PM CDT DERMATOPATHOLOGY LABORATORY Gross Description Specimen A: Received is one formalin filled container labeled with the patients name and designated right forearm. The specimen consists of a shave removal measuring 9x8x3 mm. Jar 0. 2:23 PM CDT DERMATOPATHOLOGY LABORATORY Microscopic Description Specimen A. SKIN, right forearm: Sections show hyperkeratosis, papillomatosis, hypergranulosis, and acanthosis. These histological findings can be seen in a verruca vulgaris or a seborrheic keratosis. 2:23 PM CDT DERMATOPATHOLOGY LABORATORY Disclaimer An external and internal positive and negative controls are appropriate for the histochemical, immunohistochemical and immunofluorescence stain(s) in this case (if any), except where stated explicitly. The performance characteristics of the stain(s) cited in this report were developed and its performance characteristic determined by the Dermatopathology Laboratory at [facility], directed by Dr. Robert Pritchett. These tests need not be, and therefore are not, approved by the [place] Food and Drug Administration. The tests are used for clinical purposes. Billing Codes Specimen Charges Stain Charges 44731 1 2:23 PM CDT DERMATOPATHOLOGY LABORATORY Embedded Images 2:23 PM CDT DERMATOPATHOLOGY LABORATORY Pathology/Cytolog y TISSUE SPECIMEN FROM SKIN / Unknown 09/04/2023 09/05/2023 12:52 PM CDT Roberto Zhao MD LAB - PATHOLOGY/CYTO LOGY ORDERABLES DERMATOPATHOLOGY LABORATORY [facility] - Department of Dermatology [address] [phone] documented in this encounter Visit Diagnoses Diagnosis Other seborrheic keratosis Other disturbances of skin sensation documented in this encounter
--- OUTSIDE RECORDS SUMMARY | 2024-04-08 15:09 | XMS_ITS | Patient Health Summary ---
Author Organization [facility] Address [address] [facility] [place] [address] Care Team Providers Care Traffic Court Referee Name Role Phone Unavailable Primary Care Provider Unavailabl e Note from [facility],non-owned Affiliates and Associated Physician Practices is amultiple site organization consisting of ambulatory clinics and hospital sitesin [place], [place], [place] and [place]. This disclosure is being madepursuant to the Care Everywhere program and may not contain all information available regarding this patient. Last updated 17.[facility] Allergies * Augmentin(Nausea and/or Vomiting) * Doxycycline(Urticaria) -Medium Criticality * Amoxicillin(Diarrhea),Inactive Medications * Be aware that medications may not be up to date on this document. Alwaysverify current medications with the patient. * vitamin D, ergocalciferol, (DRISDOL) 53961 UNITS capsule Take 50,000 Units by mouth every 30 days * Cyanocobalamin (VITAMIN B 12 PO) * omeprazole (PRILOSEC) 10 MG capsule Take 10 mg by mouth daily before breakfast * SERTRALINE HCL PO * METFORMIN & DIET MANAGE PROD PO * MONTELUKAST SODIUM PO * MV-Min-Fe Fum-FA-DHA ( 1 PO) Active Problems Problem Noted Date Diagnosed Date [...] Mass Index 49.34 08/05/2018 3:58 PM CDT Procedures * DERMATOPATHOLOGY(Performed 09/04/2023) Performed for Other seborrheic keratosis, Other disturbances of skin sensation * STREP A SCREEN - POINT OF CARE (AMB) STL(Performed 08/05/2018) Performed for Acute viral pharyngitis * INFLUENZA A+B - POINT OF CARE (AMB)(Performed 05/01/2017) Performed for Flu-like symptoms * STREP A SCREEN - POINT OF CARE (AMB) STL(Performed 02/21/2017) Performed for Strep throat * INFLUENZA A+B - POINT OF CARE (AMB)(Performed 02/21/2017) Performed for Strep throat * STREP A SCREEN - POINT OF CARE (AMB) STL(Performed 12/04/2016) Performed for Acute streptococcal pharyngitis * STREP A SCREEN - POINT OF CARE (AMB) STL(Performed 03/24/2016) Performed for Nasopharyngitis acute * STREP A SCREEN - POINT OF CARE (AMB) STL(Performed 10/29/2015) Performed for Strep throat Results * DERMATOPATHOLOGY (09/04/2023 12:00 AM CDT) Case Report Dermatopathology Report Case: [id number] Authorizing Provider: Roberto Zhao MD Collected: 09/04/2023 12:00 AM Ordering Location: [facility] - Received: 09/05/2023 12:52 PM [...] characteristic determined by the Dermatopathology Laboratory at [facility], directed by Dr. Robert Pritchett. These tests need not be, and therefore are not, approved by the [place] Food and Drug Administration. The tests are used for clinical purposes. Billing Codes Specimen Charges Stain Charges 33931 1 2:23 PM CDT DERMATOPATHOLOGY LABORATORY Embedded Images 2:23 PM CDT DERMATOPATHOLOGY LABORATORY Pathology/Cytolog y TISSUE SPECIMEN FROM SKIN / Unknown 09/04/2023 09/05/2023 12:52 PM CDT Roberto Zhao MD LAB - PATHOLOGY/CYTO LOGY ORDERABLES DERMATOPATHOLOGY LABORATORY [facility] - Department of Dermatology [address], [address] [phone] * STREP A SCREEN (08/05/2018 4:17 PM CDT) Only the most recent of5 resultswithin the time period is included. Strep A Rapid POCT Negative Negative Strep A Internal Control Present Lot # [id number] Expiration Date 01/05/2020 Throat ENTIRE THROAT (SURFACE REGION OF NECK) / Unknown 08/05/2018 4:17 PM CDT Nereyda Rodriguez PATHOLOGIST-CLINICAL PRACTITIONER LAB - POIN T OF CARE ORDERABLES * INFLUENZA A+B - POINT OF CARE (AMB) (05/01/2017) Only the most recent of2 resultswithin the time period is included. Influenza A Antigen Rapid Negative Negative Influenza B Antigen Rapid Negative Negative Influenza Internal Control present NEGATIVE - POSITIVE Influenza Lot Number [id number] Influenza Expiration Date 03/08/19 Other NASOPHARYNGEAL SWAB / Unknown 05/01/2017 Marla Rodriguez PATHOLOGIST-CLINICAL PRACTITIONER LAB - POINT OF CA RE ORDERABLES
== END 2024-04-08 15:22 | disposition home or self-care (01) ==
PROVIDERS: Emergency Provider Physician Assistant; PCP Physician Assistant
DX: M16.12 Unilateral primary osteoarthritis, left hip (principal); E11.9 Type 2 diabetes mellitus without complications; Z79.84 Long term (current) use of oral hypoglycemic drugs; E78.5 Hyperlipidemia, unspecified; Z87.442 Personal history of urinary calculi; K21.9 Gastro-esophageal reflux disease without esophagitis; F32.A Depression, unspecified; E66.01 Morbid (severe) obesity due to excess calories; Z68.42 Body mass index [BMI] 45.0-49.9, adult
CPT/HCPCS: 73502; 96372; 99283; A9270; J1885

== ENCOUNTER 2024-07-04 13:55 | Outpatient (CLI) | payer BC, OTHER, SELFPAY ==
--- NOTE | ~2024-07-04 | XR_ITS ---
EXAMINATION: XR lg joint inject/asp w image DATE: 07/04/2024 14:56 INDICATION: Unilateral primary osteoarthritis of the right hip TECHNIQUE: A time-out was performed to verify the patient's name, date of , and procedure to b e performed. The procedure including the risks, benefits, and alternatives was discussed with the pat ient. Risks discussed included bleeding and infection. The patient understood the risks and agreed to proceed. The skin overlying the right hip joint was prepped and draped in usual sterile fashion. A nesthetic was administered with 1% lidocaine subcutaneously. A 22 G needle was advanced under fluoro scopic guidance into the joint. Injection of 1 mL of Omnipaque 240 confirmed intra-articular positio n of the needle. Subsequently, injectate consisting of 3 mm a 2:1 mixture of 0.5% bupivacaine: 80 mg /mL Depo-Medrol for a total dosage of 80 mg Depo-Medrol was instilled. Washout of contrast was seen c onfirming intra-articular administration. The needle was removed and the entry site was cleaned and d ressed. There were no immediate complications. Fluoroscopy exposure time was 0.2 minutes. The total number of images was 2. Total DAP was 1.523 mGycm^2 FINDINGS: Real-time fluoroscopy demonstrates the needle in the right hip joint. Patient's pain prior to procedure:5/10. Patient's pain following the procedure: /10. IMPRESSION: 1. Successful right hip joint injection of local anesthetic and steroid with slight decrease in the p atient's presenting pain. Reviewed, dictated and finalized at location B. IMPRESSION: 1. Successful right hip joint injection of local anesthetic and steroid with sl ight decrease in the patient's presenting pain.
--- OUTSIDE RECORDS SUMMARY | 2024-07-04 13:58 | XMS_ITS | Encounter Summary ---
Author Organization [facility] Address [address] [place] [address] Care Team Providers Care Tube Coverer Name Role Phone Unavailable Primary Care Provider Unavailabl e Encounter Details Date Type Department Care Team (Late st Contact Info) Description 09/04/2023 Lab Requisition [facility] - DermPath Lab [address] [place] [id number] Roberto Zhao MD [facility] DERMATOLOGY [address] [place] [phone] Other seborrheic keratosis; Other disturbances of skin sensation Social History Tobacco Use Types Packs/Day Years Used Date Smoking Tobacco: Former Cigarettes 0.5 10 2 2013 Smokeless Tobacco: Never Alcohol Use Standard Drinks/Week Comments Yes 0 (1 standard drink = 0.6 oz pur e alcohol) occasionally socially Comments No Sex and Gender Information Value Date Recorded Sex Assigned at Not on file Legal Sex Female 2:08 PM CDT Gender Identity Not on file [...] AM CDT) Case Report Dermatopathology Report Case: [id number] Authorizing Provider: Roberto Zhao MD Collected: 09/04/2023 12:00 AM Ordering Location: [facility] - Received: 09/05/2023 12:52 PM DermPath Lab Pathologist: Caro Burkett MD Specimen: Skin, right forearm 2:23 PM CDT DERMATOPATHOLOGY LABORATORY Final Diagnosis Specimen A. SKIN, right forearm: BENIGN VERRUCOUS KERATOSIS, SUPERFICIAL PORTIONS OF (L82.1) (see microscopic description) 2:23 PM CDT DERMATOPATHOLOGY LABORATORY at 1423 CDT Clinical History SK 2:23 PM CDT DERMATOPATHOLOGY [...] characteristic determined by the Dermatopathology Laboratory at [facility], directed by Dr. Robert Pritchett. These tests need not be, and therefore are not, approved by the [place] Food and Drug Administration. The tests are used for clinical purposes. Billing Codes Specimen Charges Stain Charges 62262 1 2:23 PM CDT DERMATOPATHOLOGY LABORATORY Embedded Images 2:23 PM CDT DERMATOPATHOLOGY LABORATORY Pathology/Cytolog y TISSUE SPECIMEN FROM SKIN / Unknown 09/04/2023 09/05/2023 12:52 PM CDT Roberto Zhao MD LAB - PATHOLOGY/CYTOLOGY ORDE TATY Final Result DERMATOPATHOLOGY LABORATORY [facility] - Department of Dermatology [facility] Specialized [facility] [address] [place] [address], [address] [phone] documented in this encounter Visit Diagnoses Diagnosis Other seborrheic keratosis Other disturbances of skin sensation documented in this encounter
--- OUTSIDE RECORDS SUMMARY | 2024-07-04 13:58 | XMS_ITS | Clinical Summary ---
Author Organization [facility] ([place], [place]) Address [address] [place] [address] Care Team Providers Care Linen Clerk Name Role Phone Unavailable Primary Care Provider [...] season) 2023 06/13/2021, 04/15/2020, 03/18/2020 Influenza Vaccine (Season Ended) 2024 HPV Vaccines Aged Out No longer eligi ble based on patient's age to complete this topic Pneumococcal vaccine <65 Aged Out No longer eligible based on patient's age to complete this topic
--- OUTSIDE RECORDS SUMMARY | 2024-07-04 13:58 | XMS_ITS | Data Portability ---
Author [facility] Address [address] [place] [address] Care Team Providers Care Director Property Name Role Phone ISRAEL POP Primary Care Provider [phone] Assessment No assessment recorded. Plan of Treatment Reminders Order Date Submit Date Provider Last Modified By Organization Details Last Modified Time Details Appointments None recorded. Lab None recorded. Referral None recorded. Procedures polysomnogr aphy, titration study (PROC) - patient is very fatigued, exhausted, despite cpap nightly use. needs re-titratio n for new settings. 2023 0[address] [place] [address] [facility] ([facility]), [address], [place], [address], 5 14:07:02 Surgeries None recorded. Imaging CT, neck, soft tissue, w/ contrast 2023 024 [facility]- Radiology, [address], [place], [address], 4 09:47:25 Medication Orders Wegovy 0.25 mg/0.5 mL subcutaneou s pen injector [id number] [address], [place], [phone], 4 18:01:33 Patient TargetsNo targets recorded. Patient Instructions Encounter Date Encounter Id Patient Instructions Last Modified By Organization Details Last Modified Time 08/13/2023 [id number] A healthy lifestyle: care instructions [email or web address] Not available 08/13/2023 18:01:18 Reason for Referral None Reported. Results Created Date Observation Date Name Description Value Unit Range Abnormal Flag Note LastModifiedBy Organization Detail LastModifiedTime 08/29/19 24 08/29/2023 CT, neck, soft tissu e, w/ contr ast No observ ation record ed. [facility] Radiology [place] [address] [facility], [place], [address], 08/29/2023 14:47:54 04/09/19 25 04/08/2024 XR, hip + pelvi s, bilat eral, 2 view No observ ation record ed. [address], [place], [address], 04/09/2024 12:39:58 06/21/19 25 05/29/2024 XR, hip, unila teral , 2 or 3 view No observ ation record ed. [facility] Not Available 2024 13:02:56 Result Notes None recorded. Problems Name Problem SNOMED Code Status Onset Date Resolution Date Notes Provider Name and Address Organization Details Recorded Time Bone spur of right hip 4666627092917 07 Active 2023 MONROE Loera Attn: Ranjith tracey,[address] [place], [address], [facility] 4 17:46:22 Body mass index 40+ - severely obese 230578830 Active 2023 MONROE Loera Attn: Ranjith tracey,[address] [place], [address], [facility] 4 17:46:23 Obesity 959757224 Active 2023 MONROE Loera Attn: Ranjith tracey,[address] [place], [address], [facility] 4 17:46:27 Prediabetes 027967936 Active 2023 MONROE Loera Attn: Ranjith tracey,[address] [facility], [place], [address], [place] [facility] 4 17:46:54 Insulin resistance 973626032 Active 2023 MONROE Loera Attn: Ranjith g,[address] [facility], [place], [address], [place] [facility] 4 17:46:55 Major depressive disorder 580980902 Active 2023 MONROE Loera Attn: Accountgela g,[address] [facility] [address], [place], [address], [place] [facility] 4 17:47:10 Hyperlipide gareth 48851937 Active 2023 MONROE Loera Attn: Accountgela g,[address] [place], [address], [place] [facility] 4 17:47:25 Gastroesoph ageal reflux disease without esophagitis 843233661 Active 2023 MONROE Loera Attn: Accountgela g,[address] [facility], [place], [address], [place] [facility] 4 17:47:56 Allergic rhinitis 64182692 Active 2023 MONROE Loera Attn: Ranjith g,[address] [place], [address], [place] [facility] 4 17:48:11 Obstructive sleep apnea syndrome 87010303 Active 2023 MONROE Loera Attn: Accountgela g,[address] [facility], [place], [address], [place] - [facility] 4 17:49:53 Problem Notes None recorded. Medical Equipment None Reported. Allergies Allergen ID Allergen Name Allergen Category Reaction Reaction Severity Criticality Documentation Date Start Date Code Code System Note Provider Name and Address Organization Details Recorded Time 760137 doxycycli ne Not available hives mild low 08/13/2023 3640 RxNorm Prabha Crowder MA null, [place] - [facility] 4 17:21:37 296340 Augmentin medicatio n diarrhea vomiting severe severe high 08/13/2023 72964 2 RxNorm MARGARITO Jacobo, [facility] 4 17:22:04 755708 Substance with sulfonami de structure and antibacte rial mechanism of action (substanc e) medicatio n diarrhea vomiting severe Not available [facility] 08/13/2023 42082 8003 SNOMED Prabha Crowder MA null, [facility] 4 17:22:19 Medications Name Sig Start Date Stop Date [...] Available Not Avai lable Vitals Date Recorded Respiratory rate Provider Name a nd Address Organization Details Last Updated DateTime 08/13/2023 18 /min MONROE Loera Attn: BHAVNA [facility], [place], [address], [place] - [facility] 08/13/2023 18:04:17 Date Recorded Body weight Body mass index (BMI) Body height Heart rate Oxygen saturation Oxygen saturation in Arterial blood by Pulse oximetry Systolic blood pressure Diastolic blood pressure Provider Name and Address Organization Details Last Updated DateTime 064141. 7 g 51.2 kg/m2 170.18 cm 88 /min 97 % 97 % 138 mm[Hg] 74 mm[Hg] Prabha Crowder MA [facility] 17:33:04 Social History Question Answer Notes LastModified by Organizat ion Details LastModified Time Tobacco Smoking Status Former Smoker 8 years ago Prabha Crowder MA null, [facility] 08/13/2023 17:30:37 Do You Have An Advance Directive? No Information not available 08/13/2023 Are You Blind [...] No Information not available 08/13/2023 Are You Deaf Or Do You Have Serious Difficulty Hearing? No Information not available 08/13/2023 What Type Of Diet Are You Following? REGULAR Information not available 08/13/2023 Are There Any [...] Yes Information not available 08/13/2023 Do You Use Sunscreen Routinely? Yes Information not available 08/13/2023 Has Tobacco Cessation Counseling Been Provided? No Information not available 08/13/2023 Sex: Female Functional Status Question Answer Note LastModified by Organizat ion Details LastModified Time Do you use any illicit or recreational drugs? No Information not available 08/13/2023 What is your level of alcohol consumption? Occasional Information not available 08/13/2023 Are you currently employed? Yes Information not available 08/13/2023 Are you able to care for yourself? Yes Information n ot available 08/13/2023 What is your occupation? [employer] Information not available 08/13/2023 What is your exercise level? None Information not available 08/13/2023 Mental Status Question Answer Note LastModified by Organization D etails LastModified Time Do you feel stressed (tense, restless, nervous, or anxious, or unable to sleep at night)? [id number] Information not available 08/13/2023 Family History Nothing Reported. Medical History No medical history recorded. Gynecological History Statement/Question Response Menses Monthly N Flow Moderate Date of LMP 06/29/2023 LMP Definite Obstetrics History GPAL:G 0 P 0 0 0 0 Past Encounters Encounter ID Performer Location Encounter Start Date Encounter Closed Date Diagnosis/Indication Diagnosis SNOMED-CT Code Diagnosis ICD10 Code Diagnosis Note [id number] Zac Vasques MD [facility] [address] [place] [address] 08/13/2023 17:06:22 08/13/2023 18:06:11 Body mass index 40+ - severely obese 966814872 Z68.43 BMI is 51.2. start Wegovy injectable therapy. no personal or family hx of Medullary thyroid cancer or MEN conditions . Bone spur of right hip 0653195995 08341 M25.751 Patient is following with a specialist for a bone spur of her right hip Obesity 232912277 E66.8 discussed healthy diet, exercise, controllin g carbohydra angela and added sugars in the diet Prediabetes 939535089 R7 3.03 Continue metformin 500 mg daily and continue lower carbohydra te lower sugar diet. Insulin resistance 69985 5000 E88.819 Patient is taking metformin 500 mg daily, if she is able to get Wegovy therapy this will be 1 of the most important ways to manage and treat her insulin resistance Major depr essive disorder 761053205 F32.9 Continue sertraline 150 mg daily and Wellbutrin SR 150 mg daily that is given by her gynecologi st Hyperlipidemia 59473964 E78.5 Continue rosuvastat in 10 mg daily. Patient has lab orders to complete Gastroesop hageal reflux disease without esophagitis 566417920 K21.9 Continue omeprazole 40 mg daily Allergic rhinitis 793502 04 J30.9 Patient may take over-the-c ounter antihistam ine and Singulair 10 mg daily Obstructiv e sleep apnea syndrome 05325659 G47.33 Patient does have known sleep apnea [...] with a new machine. Long-term drug therapy 190337683 Z79.899 Routine labs are still up-to-date and we will acquire records from old office Neck swelling 362914490 R22.1 Generalize d neck fullness and swelling [...] Conklin Member ID Guarantor Name 08/13/2023 1 [employer] [id number] Linda Anita [id number] Linda Anita 08/13/2023 2 [facility] AET[employer] (PPO) [id number] Nito Howard [id number] Linda Howard Notes Date Note Type Note Provider Name [...] for management MONROE Loera Attn: Accounting, [address] [place], [address], [facility] 01/21/2024 13:40:09 OBGyn Episode No OBEpisode recorded.
--- OUTSIDE RECORDS SUMMARY | 2024-07-04 13:58 | XMS_ITS | Clinical Summary ---
Author Organization [facility] Address [address] [place] [address] Care Team Providers Care Secondary Connector Armature Name Role Phone Unavailable Primary Care Provider Unavailabl e Source Comments [facility],non-owned Affiliates and Associated Physician Practices is amultiple site organization consisting of ambulatory clinics and hospital sitesin [place], [place], [place] and [place]. This disclosure is being madepursuant to the Care Everywhere program and may not contain all information available regarding this patient. Last updated 17.[facility] Allergies Active Allergy Reactions Criticality Noted Date Comments Augmentin Nausea and/or Vomiting 05/01/2017 Doxycycline Urticaria Medium 10/29/2015 Medications * Be aware that medications may not be up to date on this document. Alwaysverify current medications with the patient. vitamin D, ergocalciferol, (DRISDOL) 70856 UNITS capsule Take 50,000 Units by mouth every 30 days Active Cyanocobalamin (VITAMIN B 12 PO) Active omeprazole (PRILOSEC) 10 MG capsule Take 10 mg by mouth daily before breakfast Active SERTRALINE HCL PO Active METFORMIN & DIET MANAGE PROD PO Active MONTELUKAST SODIUM PO Active MV-Min-Fe Fum-FA-DHA ( 1 PO) Acti ve Active Problems Problem Noted Date Diagnosed Date [...] 3:58 PM CDT Height 170.2 cm (5' 7) 08/05/2018 3:58 PM CDT Body Mass Index 49.34 08/05/2018 3:58 PM CDT Plan of Treatment Health Maintenance Due Date Last Done Comments LIPID TESTING 1979 MAMMOGRAM 1979 PAP SMEAR 1979 HIV SCREENING 09/09/1994 HEPATITIS C SCREENING 09/05/1997 DTAP/TDAP/TD VACCINES (1 - Tdap) 09/09/1998 HEPATITIS B VACCINE (1 of 3 - 19+ 3-dose series) 09/09/1998 COVID-19 VACCINE (1 - 2023-2 5 season) 2023 DEPRESSION SCREENING 02/06/2024 INFLUENZA VACCINE (Season Ended) 2024 ZOSTER VACCINE (1 of 2) 09/09/2029 HIB VACCINE Aged Out No longer eligi ble based on patient's age to complete this topic HPV VACCINE Aged Out No longer eligi ble based on patient's age to complete this topic MENINGOCOCCAL (Group B) VACC INE SHARED DECISION-MAKING Aged Out No longer eligibl e based on patient's age to complete this topic MENINGOCOCCAL GROUPS A/C/Y/W VACCINE Aged Out No longer eligible b ased on patient's age to complete this topic PNEUMOCOCCAL VACCINE Aged Out No long er eligible based on patient's age to complete this topic Insurance AN[employer]M AETNA
--- OUTSIDE RECORDS SUMMARY | 2024-07-04 13:58 | XMS_ITS | Referral Summary ---
Author Organization [facility] Address [address] [place] [address] Care Team Providers Care Cnc Service Engineer Name Role Phone Unavailable Primary Care [...]
--- OUTSIDE RECORDS SUMMARY | 2024-07-04 13:58 | XMS_ITS | Data Portability ---
Author Organization [facility], Main Office Address [address] [place] [address] Assessment No assessment recorded. Plan of Treatment [...] Orders fluconazole 150 mg tablet 2022 023 [id number], [address] [place], [place], [id number], 3 16:05:20 Patient TargetsNo targets recorded. Patient InstructionsNo instructions recorded. Reason for Referral None Reported. Results Created Date Observation Date Name Description Value Unit Range Abnormal Flag Note LastModifiedBy Organization Detail LastModifiedTime 10/23/19 21 10/25/2020 CULTU RE, URINE , ROUTI NE culture, urine, routine CULTU RE, URINE , ROUTI NE Micro Numbe r: [id number] Test Statu s: Final Speci men [...] recom summer d. Not Available [facility] [address] [address] [place], [address], 10/25/2020 14:56:52 10/23/19 21 10/25/2020 INSUL IN [...] gluli sine) . Not Available [facility] [address] [address] [place], [address], 10/25/2020 14:56:52 10/23/19 21 10/25/2020 REFLE XIVE URINE CULTU RE reflexive urine culture CULTU RE INDIC ATED - RESUL TS TO FOLLO W Not Available [facility] [address] [address] [place], [address], 10/25/2020 14:56:51 10/23/19 21 10/25/2020 URINA LYSIS , COMPL ETE W/REF ALCIRA TO CULTU RE color yellow yellow normal Not Available [facility] [id number], [place], [address], 10/25/2020 14:56:50 10/23/19 21 10/25/2020 URINA LYSIS , COMPL ETE W/REF ALCIRA TO CULTU RE appearance clear clear normal Not Available [address], [address], 10/25/2020 14:56:50 10/23/19 21 10/25/2020 URINA LYSIS , COMPL ETE W/REF ALCIRA TO CULTU RE specific gravity 1.028 1.001- 1.035 normal Not Available [address], [address], 10/25/2020 14:56:50 10/23/19 21 10/25/2020 URINA LYSIS , COMPL ETE W/REF ALCIRA TO CULTU RE pH 5.5 5.0-8. 0 normal Not Available [address], [address], 10/25/2020 14:56:50 10/23/19 21 10/25/2020 URINA LYSIS , COMPL ETE W/REF ALCIRA TO CULTU RE glucose negati ve negati ve normal Not Available [address], [address], 10/25/2020 14:56:50 10/23/19 21 10/25/2020 URINA LYSIS , COMPL ETE W/REF ALCIRA TO CULTU RE bilirubin negati ve negati ve normal Not Available [address], [address], 10/25/2020 14:56:50 10/23/19 21 10/25/2020 URINA LYSIS , COMPL ETE W/REF ALCIRA TO CULTU RE ketones negati ve negati ve normal Not Available [address], [address], 10/25/2020 14:56:50 10/23/19 21 10/25/2020 URINA LYSIS , COMPL ETE W/REF ALCIRA TO CULTU RE occult blood 3+ negati ve abnormal Not Available [address], [address], 10/25/2020 14:56:50 10/23/19 21 10/25/2020 URINA LYSIS , COMPL ETE W/REF ALCIRA TO CULTU RE protein 1+ negati ve abnormal Not Available [address], [address], 10/25/2020 14:56:50 10/23/19 21 10/25/2020 URINA LYSIS , COMPL ETE W/REF ALCIRA TO CULTU RE nitrite negati ve negati ve normal Not Available [address], [address], 10/25/2020 14:56:50 10/23/19 21 10/25/2020 URINA LYSIS , COMPL ETE W/REF ALCIRA TO CULTU RE leukocyte esterase 1+ negati ve abnormal Not Available [address], [address], 10/25/2020 14:56:50 10/23/19 21 10/25/2020 URINA LYSIS , COMPL ETE W/REF ALCIRA TO CULTU RE WBC 10-20 /hpf < or = 5 abnormal Not Available [address], [address], 10/25/2020 14:56:50 10/23/19 21 10/25/2020 URINA LYSIS , COMPL ETE W/REF ALCIRA TO CULTU RE RBC 10-20 /hpf < or = 2 abnormal Not Available [address], [address], 10/25/2020 14:56:50 10/23/19 21 10/25/2020 URINA LYSIS , COMPL ETE W/REF ALCIRA TO CULTU RE squamous epithelial cells 0-5 /hpf < or = 5 Not Available [address], [address], 10/25/2020 14:56:50 10/23/19 21 10/25/2020 URINA LYSIS , COMPL ETE W/REF ALCIRA TO CULTU RE bacteria none seen /hpf none seen normal Not Available [address], [address], 10/25/2020 14:56:50 10/23/19 21 10/25/2020 URINA LYSIS , COMPL ETE W/REF ALCIRA TO CULTU RE hyaline cast none seen /lpf none seen normal Not Available [address], [address], 10/25/2020 14:56:50 10/23/19 21 10/25/2020 CBC (INCL UDES DIFF/ PLT) white blood cell count 9.8 thous and/u L 3.8-10 .8 normal Not Available [address], [address], 10/25/2020 14:56:49 10/23/19 21 10/25/2020 CBC (INCL UDES DIFF/ PLT) red blood cell count 4.88 melisa on/uL 3.80-5 .10 normal Not Available [address], [address], 10/25/2020 14:56:49 10/23/19 21 10/25/2020 CBC (INCL UDES DIFF/ PLT) hemoglobin 12.8 g/dL 11.7-1 5.5 normal Not Available [address], [address], 10/25/2020 14:56:49 10/23/19 21 10/25/2020 CBC (INCL UDES DIFF/ PLT) hematocrit 40.7 % 35.0-4 5.0 normal Not Available [address], [address], 10/25/2020 14:56:49 10/23/19 21 10/25/2020 CBC (INCL UDES DIFF/ PLT) MCV 83.4 fL 80.0-1 00.0 normal Not Available [address], [address], 10/25/2020 14:56:49 10/23/19 21 10/25/2020 CBC (INCL UDES DIFF/ PLT) MCH 26.2 pg 27.0-3 3.0 low Not Available [facility] [address], [address], 10/25/2020 14:56:49 10/23/19 21 10/25/2020 CBC (INCL UDES DIFF/ PLT) MCHC 31.4 g/dL 32.0-3 6.0 low Not Available [address], [address], 10/25/2020 14:56:49 10/23/19 21 10/25/2020 CBC (INCL UDES DIFF/ PLT) RDW 13.7 % 11.0-1 5.0 normal Not Available [address], [address], 10/25/2020 14:56:49 10/23/19 21 10/25/2020 CBC (INCL UDES DIFF/ PLT) platelet count 295 thous and/u L 140-40 0 normal Not Available [address], [address], 10/25/2020 14:56:49 10/23/19 21 10/25/2020 CBC (INCL UDES DIFF/ PLT) MPV 11.1 fL 7.5-12 .5 normal Not Available [address], [address], 10/25/2020 14:56:49 10/23/19 21 10/25/2020 CBC (INCL UDES DIFF/ PLT) absolute neutrophils 6615 cells /uL 1500-7 800 normal Not Available [address], [address], 10/25/2020 14:56:49 10/23/19 21 10/25/2020 CBC (INCL UDES DIFF/ PLT) absolute lymphocytes 2479 cells /uL 850-39 00 normal Not Available [address], [address], 10/25/2020 14:56:49 10/23/19 21 10/25/2020 CBC (INCL UDES DIFF/ PLT) absolute monocytes 490 cells /uL 200-95 0 normal Not Available [address], [address], 10/25/2020 14:56:49 10/23/19 21 10/25/2020 CBC (INCL UDES DIFF/ PLT) absolute eosinophils 186 cells /uL 15-500 normal Not Available [address], [address], 10/25/2020 14:56:49 10/23/19 21 10/25/2020 CBC (INCL UDES DIFF/ PLT) absolute basophils 29 cells /uL 0-200 normal Not Available [address], [address], 10/25/2020 14:56:49 10/23/19 21 10/25/2020 CBC (INCL UDES DIFF/ PLT) neutrophils 67.5 % normal Not Available [address], [address], 10/25/2020 14:56:49 10/23/19 21 10/25/2020 CBC (INCL UDES DIFF/ PLT) lymphocytes 25.3 % normal Not Available [address], [address], 10/25/2020 14:56:49 10/23/19 21 10/25/2020 CBC (INCL UDES DIFF/ PLT) monocytes 5.0 % normal Not Available [address], [address], 10/25/2020 14:56:49 10/23/19 21 10/25/2020 CBC (INCL UDES DIFF/ PLT) eosinophils 1.9 % normal Not Available [address], [address], 10/25/2020 14:56:49 10/23/19 21 10/25/2020 CBC (INCL UDES DIFF/ PLT) basophils 0.3 % normal Not Available [address], [address], 10/25/2020 14:56:49 10/23/19 21 10/25/2020 T4, FREE T4, free 1.0 NG/dL 0.8-1. 8 normal Not Available [address], [address], 10/25/2020 14:56:48 10/23/19 21 10/25/2020 TSH TSH 1.91 mIU/L normal Refer ence Range > or = 20 Years 0.40- 4.50 Pregn naresh Range s First trime ster 0.26- 2.66 Secon d trime ster 0.55- 2.73 Third trime ster 0.43- 2.91 Not Available [address], [address], 10/25/2020 14:56:47 10/23/19 21 10/25/2020 LIPAS E lipase 12 U/L 7-60 normal Not Available [address], [address], 10/25/2020 14:56:46 10/23/19 21 10/25/2020 AMYLA SE amylase 25 U/L 21-101 normal Not Available [facility] [place] [id number] [place], [address], 10/25/2020 14:56:46 10/23/19 21 10/25/2020 VITAM IN [...] /MS is recom summer d: order code 44384 (freddy ents >2yrs ). See Note 1 Note 1 For addit ional infor mariam jaime e refer to http: //grecia Soto stDia gnost ics.c om/fa q/FAQ 199 (This link is being provi ded for infor jose l olivier/ valentin roper purpo ses only. ) Not Available [facility] [address] [address] [place], [address], 10/25/2020 14:56:45 10/23/19 21 10/25/2020 HEMOG LOBIN A1C hemoglobin A1C 5.9 %_of_ total _HGB <5.7 high Not Available [facility] [address] [place], [address], 10/25/2020 14:56:44 10/23/19 21 10/25/2020 COMPR EHENS RAFAT METAB OLIC PANEL glucose 102 mg/dL 65-99 high Fasti ng refer ence inter eagle For someo ne witho ut known diabe angela, a gluco se value betwe en 100 and 125 mg/dL is consi stent with predi abete s and shoul d be confi rmed with a follo w-up test. Not Available [address], [address], 10/25/2020 14:56:43 10/23/19 21 10/25/2020 COMPR EHENS RAFAT METAB OLIC PANEL urea nitrogen (BUN) 11 mg/dL 7-25 normal Not Available [address], [address], 10/25/2020 14:56:43 10/23/19 21 10/25/2020 COMPR EHENS RAFAT METAB OLIC PANEL creatinine 0.73 mg/dL 0.50-1 .10 normal Not Available [address], [address], 10/25/2020 14:56:43 10/23/19 21 10/25/2020 COMPR EHENS RAFAT METAB OLIC PANEL eGFR non-afr. [place] 102 mL/mi n/1.7 3m2 > or = 60 normal Not Available [address], [address], 10/25/2020 14:56:43 10/23/19 21 10/25/2020 COMPR EHENS RAFAT METAB OLIC PANEL eGFR 119 mL/mi n/1.7 3m2 > or = 60 normal Not Available [address], [address], 10/25/2020 14:56:43 10/23/19 21 10/25/2020 COMPR EHENS RAFAT METAB OLIC PANEL BUN/creatini ne ratio not applic able (calc ) 6-22 Not Available [address], [address], 10/25/2020 14:56:43 10/23/19 21 10/25/2020 COMPR EHENS RAFAT METAB OLIC PANEL sodium 136 mmol/ L 135-14 6 normal Not Available [address], [address], 10/25/2020 14:56:43 10/23/19 21 10/25/2020 COMPR EHENS RAFAT METAB OLIC PANEL potassium 4.1 mmol/ L 3.5-5. 3 normal Not Available [address], [address], 10/25/2020 14:56:43 10/23/19 21 10/25/2020 COMPR EHENS RAFAT METAB OLIC PANEL chloride 102 mmol/ L 98-110 normal Not Available [address], [address], 10/25/2020 14:56:43 10/23/19 21 10/25/2020 COMPR EHENS RAFAT METAB OLIC PANEL carbon dioxide 23 mmol/ L 20-32 normal Not Available [address], [address], 10/25/2020 14:56:43 10/23/19 21 10/25/2020 COMPR EHENS RAFAT METAB OLIC PANEL calcium 8.9 mg/dL 8.6-10 .2 normal Not Available [address], [address], 10/25/2020 14:56:43 10/23/19 21 10/25/2020 COMPR EHENS RAFAT METAB OLIC PANEL protein, total 7.0 g/dL 6.1-8. 1 normal Not Available [address], [address], 10/25/2020 14:56:43 10/23/19 21 10/25/2020 COMPR EHENS RAFAT METAB OLIC PANEL albumin 3.9 g/dL 3.6-5. 1 normal Not Available [address], [address], 10/25/2020 14:56:43 10/23/19 21 10/25/2020 COMPR EHENS RAFAT METAB OLIC PANEL globulin 3.1 g/dL_ (calc ) 1.9-3. 7 normal Not Available [address], [address], 10/25/2020 14:56:43 10/23/19 21 10/25/2020 COMPR EHENS RAFAT METAB OLIC PANEL albumin/glob ulin ratio 1.3 (calc ) 1.0-2. 5 normal Not Available [address], [address], 10/25/2020 14:56:43 10/23/19 21 10/25/2020 COMPR EHENS RAFAT METAB OLIC PANEL bilirubin, total 0.3 mg/dL 0.2-1. 2 normal Not Available [address], [address], 10/25/2020 14:56:43 10/23/19 21 10/25/2020 COMPR EHENS RAFAT METAB OLIC PANEL alkaline phosphatase 101 U/L 31-125 normal Not Available [address], [address], 10/25/2020 14:56:43 10/23/19 21 10/25/2020 COMPR EHENS RAFAT METAB OLIC PANEL AST 23 U/L 10-30 normal Not Available [address], [address], 10/25/2020 14:56:43 10/23/19 21 10/25/2020 COMPR EHENS RAFAT METAB OLIC PANEL ALT 27 U/L 6-29 normal Not Available [address], [address], 10/25/2020 14:56:43 10/23/19 21 10/25/2020 LIPID PANEL , STAND CHICA cholesterol, total 229 mg/dL <200 high Not Available [address], [address], 10/25/2020 14:56:42 10/23/19 21 10/25/2020 LIPID PANEL , STAND CHICA HDL cholesterol 37 mg/dL > or = 50 low Not Available [facility] [address] [place], [address], 10/25/2020 14:56:42 10/23/19 21 10/25/2020 LIPID PANEL , STAND CHICA triglyceride s 206 mg/dL <150 high If a non-f astin g speci men was colle cted, consi eric repea t trigl yceri de testi ng on a fasti ng speci men if clini penelope indic ated. Norberto mendiola et al. J. of Clin. Lipid ol. 2015; 9:129 -169. Not Available [facility] [address] [facility] [place], [address], 10/25/2020 14:56:42 10/23/19 21 10/25/2020 LIPID PANEL , STAND CHICA LDL-choleste rol 155 mg/dL _(matthew c) high Refer ence range : <100 Kimberly able range <100 mg/dL for prima ry preve ntion ; <70 mg/dL for patie nts with CHD or diabe tic patie nts with > or = 2 CHD risk facto rs. LDL-C is now calcu lated using the Acron n-Hop kins calcu latjase n, which is a valid ated novel caspero d scott painter r accur acy than the Fried patricia equat ion in the estim ation of LDL-C . Caron fisher SS et al. GIGI. 2013; 310(1 9): 2061- 2068 (http ://ed ucati on.Qu estDi SynapDxs. com/f aq/FA Q164) Not Available [facility] [address] [place], [address], 10/25/2020 14:56:42 10/23/19 21 10/25/2020 LIPID PANEL , STAND CHICA chol/HDLC ratio 6.2 (calc ) <5.0 high Not Available [address] [address] [place], [address], 10/25/2020 14:56:42 10/23/19 21 10/25/2020 LIPID PANEL , STAND CHICA non HDL cholesterol 192 mg/dL _(matthew c) <130 high For patie nts with diabe angela plus 1 major ASCVD risk facto r, treat ing to a non-H DL-C goal of <100 mg/dL (LDL- C of <70 mg/dL ) is consi dered a thera peuti c optio n. Not Available [facility] [address] [address] [place], [address], 10/25/2020 14:56:42 09/03/19 23 09/03/2022 LIPID PANEL , STAND CHICA cholesterol, total 196 mg/dL <200 normal Not Available [address] [address] [place], [address], 09/03/2022 12:31:18 09/03/19 23 09/03/2022 LIPID PANEL , STAND CHICA HDL cholesterol 44 mg/dL > or = 50 low Not Available [address] [place], [address], 09/03/2022 12:31:18 09/03/19 23 09/03/2022 LIPID PANEL , STAND CHICA triglyceride s 219 mg/dL <150 high If a non-f astin g speci men was colle cted, consi erci repea t trigl yceri de testi ng on a fasti ng speci men if clini penelope indic ated. Norberto mendiola et al. J. of Clin. Lipid ol. 2015; 9:129 -169. Not Available [address] [place], [address], 09/03/2022 12:31:18 09/03/19 23 09/03/2022 LIPID PANEL [...] 2061- 206 (http ://ed ucati on.Qu estDi Limos.com. com/f aq/FA Q164) Not Available [facility] [address] [address] [place], [address], 09/03/2022 12:31:18 09/03/19 23 09/03/2022 LIPID PANEL , STAND CHICA chol/HDLC ratio 4.5 (calc ) <5.0 normal Not Available [address] [address] [place], [address], 09/03/2022 12:31:18 09/03/19 23 09/03/2022 LIPID PANEL , STAND CHICA non HDL cholesterol 152 mg/dL _(matthew c) <130 high For patie nts with diabe angela plus 1 major ASCVD risk facto r, treat ing to a non-H DL-C goal of <100 mg/dL (LDL- C of <70 mg/dL ) is consi ed a siobhan hall optio n. Not Available [address] [address] [address] , [place], [address], 09/03/2022 12:31:18 09/03/19 23 09/03/2022 COMPR EHENS RAFAT METAB OLIC PANEL glucose 97 mg/dL 65-99 normal Fasti ng refer ence inter eagle Not Available [facility] [address] [address] [place], [address], 09/03/2022 12:31:20 09/03/19 23 09/03/2022 COMPR EHENS RAFAT METAB OLIC PANEL urea nitrogen (BUN) 12 mg/dL 7-25 normal Not Available [address], [address], 09/03/2022 12:31:20 09/03/19 23 09/03/2022 COMPR EHENS RAFAT METAB OLIC PANEL creatinine 0.77 mg/dL 0.50-0 .99 normal Not Available [facility] [address], [address], 09/03/2022 12:31:20 09/03/19 23 09/03/2022 COMPR EHENS [...] kdoqi /gfr% 5Fcal culat or Not Available [address], [address], 09/03/2022 12:31:20 09/03/19 23 09/03/2022 COMPR EHENS RAFAT METAB OLIC PANEL BUN/creatini ne ratio NOT APPLIC ABLE (calc ) 6-22 Not Available [address], [address], 09/03/2022 12:31:20 09/03/19 23 09/03/2022 COMPR EHENS RAFAT METAB OLIC PANEL sodium 140 mmol/ L 135-14 6 normal Not Available [facility] [address], [address], 09/03/2022 12:31:20 09/03/19 23 09/03/2022 COMPR EHENS RAFAT METAB OLIC PANEL potassium 4.4 mmol/ L 3.5-5. 3 normal Not Available [facility] [address], [address], 09/03/2022 12:31:20 09/03/19 23 09/03/2022 COMPR EHENS RAFAT METAB OLIC PANEL chloride 102 mmol/ L 98-110 normal Not Available [address], [address], 09/03/2022 12:31:20 09/03/19 23 09/03/2022 COMPR EHENS RAFAT METAB OLIC PANEL carbon dioxide 28 mmol/ L 20-32 normal Not Available [address], [address], 09/03/2022 12:31:20 09/03/19 23 09/03/2022 COMPR EHENS RAFAT METAB OLIC PANEL calcium 9.2 mg/dL 8.6-10 .2 normal Not Available [address], [address], 09/03/2022 12:31:20 09/03/19 23 09/03/2022 COMPR EHENS RAFAT METAB OLIC PANEL protein, total 7.1 g/dL 6.1-8. 1 normal Not Available [address], [address], 09/03/2022 12:31:20 09/03/19 23 09/03/2022 COMPR EHENS RAFAT METAB OLIC PANEL albumin 4.1 g/dL 3.6-5. 1 normal Not Available [address], [address], 09/03/2022 12:31:20 09/03/19 23 09/03/2022 COMPR EHENS RAFAT METAB OLIC PANEL globulin 3.0 g/dL_ (calc ) 1.9-3. 7 normal Not Available [address], [address], 09/03/2022 12:31:20 09/03/19 23 09/03/2022 COMPR EHENS RAFAT METAB OLIC PANEL albumin/glob ulin ratio 1.4 (calc ) 1.0-2. 5 normal Not Available [address], [address], 09/03/2022 12:31:20 09/03/19 23 09/03/2022 COMPR EHENS RAFAT METAB OLIC PANEL bilirubin, total 0.3 mg/dL 0.2-1. 2 normal Not Available [address] [address] [place], [address], 09/03/2022 12:31:20 09/03/19 23 09/03/2022 COMPR EHENS RAFAT METAB OLIC PANEL alkaline phosphatase 127 U/L 31-125 high Not Available [address] [address] [place], [address], 09/03/2022 12:31:20 09/03/19 23 09/03/2022 COMPR EHENS RAFAT METAB OLIC PANEL AST 56 U/L 10-30 high Not Available [address], [address], 09/03/2022 12:31:20 09/03/19 23 09/03/2022 COMPR EHENS RAFAT METAB OLIC PANEL ALT 52 U/L 6-29 high Not Available [address], [address], 09/03/2022 12:31:20 09/03/19 23 09/03/2022 HEMOG LOBIN A1C hemoglobin A1C 5.7 %_of_ total _HGB <5.7 high For someo ne witho ut known diabe angela, a hemog lobin A1c value betwe en [...] diabe angela for child chepe. Not Available [facility] [address] [place], [address], 09/03/2022 12:31:21 09/03/19 23 09/03/2022 VITAM IN [...] /MS is recom summer d: order code 60744 (freddy ents >2yrs ). See Note 1 Note 1 For addit ional infor mariam jaime e refer to http: //grecia Causeyia gnost ics.c om/fa q/FAQ 199 (This link is being provi ded for infor jose l olivier/ valentin roper purpo ses only. ) Not Available [facility] [address] [place], [address], 09/03/2022 12:31:21 09/03/19 23 09/03/2022 TSH TSH 2.28 mIU/L normal Refer ence Range > or = 20 Years 0.40- 4.50 Pregn naresh Range s First trime ster 0.26- 2.66 Secon d trime ster 0.55- 2.73 Third trime ster 0.43- 2.91 Not Available [address], [address], 09/03/2022 12:31:22 09/03/19 23 09/03/2022 T4, FREE T4, free 0.9 NG/dL 0.8-1. 8 normal Not Available [address], [address], 09/03/2022 12:31:23 09/03/19 23 09/03/2022 CBC (INCL UDES DIFF/ PLT) white blood cell count 9.2 thous and/u L 3.8-10 .8 normal Not Available [address], [address], 09/03/2022 12:31:23 09/03/19 23 09/03/2022 CBC (INCL UDES DIFF/ PLT) red blood cell count 4.82 melisa on/uL 3.80-5 .10 normal Not Available [address], [address], 09/03/2022 12:31:23 09/03/19 23 09/03/2022 CBC (INCL UDES DIFF/ PLT) hemoglobin 12.6 g/dL 11.7-1 5.5 normal Not Available [address], [address], 09/03/2022 12:31:23 09/03/19 23 09/03/2022 CBC (INCL UDES DIFF/ PLT) hematocrit 40.1 % 35.0-4 5.0 normal Not Available [facility] [address], [address], 09/03/2022 12:31:23 09/03/19 23 09/03/2022 CBC (INCL UDES DIFF/ PLT) MCV 83.2 fL 80.0-1 00.0 normal Not Available [address], [address], 09/03/2022 12:31:23 09/03/19 23 09/03/2022 CBC (INCL UDES DIFF/ PLT) MCH 26.1 pg 27.0-3 3.0 low Not Available [address], [address], 09/03/2022 12:31:23 09/03/19 23 09/03/2022 CBC (INCL UDES DIFF/ PLT) MCHC 31.4 g/dL 32.0-3 6.0 low Not Available [address], [address], 09/03/2022 12:31:23 09/03/19 23 09/03/2022 CBC (INCL UDES DIFF/ PLT) RDW 14.1 % 11.0-1 5.0 normal Not Available [address], [address], 09/03/2022 12:31:23 09/03/19 23 09/03/2022 CBC (INCL UDES DIFF/ PLT) platelet count 249 thous and/u L 140-40 0 normal Not Available [address], [address], 09/03/2022 12:31:23 09/03/19 23 09/03/2022 CBC (INCL UDES DIFF/ PLT) MPV 10.9 fL 7.5-12 .5 normal Not Available [address], [address], 09/03/2022 12:31:23 09/03/19 23 09/03/2022 CBC (INCL UDES DIFF/ PLT) absolute neutrophils 6017 cells /uL 1500-7 800 normal Not Available [address], [address], 09/03/2022 12:31:23 09/03/19 23 09/03/2022 CBC (INCL UDES DIFF/ PLT) absolute lymphocytes 2429 cells /uL 850-39 00 normal Not Available [address], [address], 09/03/2022 12:31:23 09/03/19 23 09/03/2022 CBC (INCL UDES DIFF/ PLT) absolute monocytes 451 cells /uL 200-95 0 normal Not Available [address], [address], 09/03/2022 12:31:23 09/03/19 23 09/03/2022 CBC (INCL UDES DIFF/ PLT) absolute eosinophils 258 cells /uL 15-500 normal Not Available [address], [address], 09/03/2022 12:31:23 09/03/19 23 09/03/2022 CBC (INCL UDES DIFF/ PLT) absolute basophils 46 cells /uL 0-200 normal Not Available [address], [address], 09/03/2022 12:31:23 09/03/19 23 09/03/2022 CBC (INCL UDES DIFF/ PLT) neutrophils 65.4 % normal Not Available [address], [address], 09/03/2022 12:31:23 09/03/19 23 09/03/2022 CBC (INCL UDES DIFF/ PLT) lymphocytes 26.4 % normal Not Available [facility] [address], [address], 09/03/2022 12:31:23 09/03/19 23 09/03/2022 CBC (INCL UDES DIFF/ PLT) monocytes 4.9 % normal Not Available [facility] [address] [place], [address], 09/03/2022 12:31:23 09/03/19 23 09/03/2022 CBC (INCL UDES DIFF/ PLT) eosinophils 2.8 % normal Not Available [facility] [address] [place], [address], 09/03/2022 12:31:23 09/03/19 23 09/03/2022 CBC (INCL UDES DIFF/ PLT) basophils 0.5 % normal Not Available [facility] [address] [place], [address], 09/03/2022 12:31:23 05/24/19 22 05/21/2021 XR, shoul eric No observ ation record ed. [id number] [facility] [address] [place], [address], 04/05/2022 05:03:39 05/28/19 22 05/21/2021 MAMMO , scree darshana, digit al, bilat eral No observ ation record ed. [id number] [facility] [place] [address] [facility], [place], [address], 04/05/2022 05:03:39 09/21/19 22 09/19/2021 XR, hip, unila teral No observ ation record ed. MIGRATION. [id number] [place] [address], [place], [address], 04/05/2022 05:03:39 02/13/19 23 01/06/2022 imagi ng/di agnos tic resul t No observ ation record ed. [id number] [facility] [address] [facility], [place], [address], 04/05/2022 05:03:39 02/27/19 23 02/27/2022 CT, abdom en + pelvi s, w/o contr ast No observ ation record ed. [id number] Not Available 04/05/2022 05:03:39 03/02/19 23 01/24/2022 upper endos copy proce dure (EGD) (PROC ) No observ ation record ed. [id number] Raudel Boyd MD [address] [place], [address], 04/05/2022 05:03:39 03/05/19 24 02/21/2022 colon oscop y scree darshana (PROC ) No observ ation record ed. [email or web address] [facility] [address] [place], [address], 03/05/2023 11:26:31 Result Notes None recorded. Problems Name Problem SNOMED Code Status Onset Date Resolution Date Notes Provider Name and Address Organization Details Recorded Time Kidney stone 14929600 Active 2022 MONROE Loera [address], [place], [address] , [place] 3 15:52:05 Candidiasi s of vagina 78267451 Active 2022 [facility]era [address] [address], [place], [address] , [facility] 3 15:52:09 Impaired glucose tolerance 9555712 Active 2022 MONROE Loera [address], [place], [address] , [facility] 3 16:05:49 Mixed hyperlipid emia 925609967 Active 2023 MONROE Loera [address], [place], [address] , [facility] 4 15:00:16 Pain of left shoulder joint 3666903032640 9109 Active 2021 Not Available [facility] 3 04:52:04 Gastroesop hageal reflux disease 541600505 Active 2018 Not Available [facility] 3 04:52:05 Long-term drug therapy Active 2021 Not Available [facility] 3 04:52:05 Pain of right hip joint 4785738832362 02 Active 2021 Not Available [facility] 3 04:52:05 Trochanter ic bursitis of right hip 0977701782803 00 Active 2021 Not Available [facility] 3 04:52:05 Vitamin D deficiency 04542578 Active 2020 Not Available [facility] 3 04:52:05 Seasonal allergic rhinitis 782614061 Active 2020 Not Available [facility] 3 04:52:05 Pain of hip region 06296968 Active 2021 Not Available [facility] 3 04:52:05 Cervical radiculopa thy 97768725 Active 2021 Not Available [facility] 3 04:52:05 Hyperlipid emia 60924248 Active 2018 Not Available [facility] 3 04:52:05 Degenerati on of cervical interverte bral disc 06821409 Active 2021 Not Available [facility] 3 04:52:05 Obstructiv e sleep apnea syndrome 15054066 Active 2018 Not Available [facility] 3 04:52:06 Problem Notes None recorded. Procedures Surgical History Date Name Laterality Status Provider Name and Address Organization Details Recorded Time 02/05/19 21 Removal of ovary(s) completed Not Available [facility] 04/05/2022 04:42:31 06/06/19 19 Date of Last Colonoscopy completed Not Available [facility] 04/05/2022 04:42:29 06/06/19 18 Cholecystectomy completed Not Available [facility] 04/05/2022 04:42:31 02/14/19 17 Carpal tunnel surgery completed Not Available [facility] 04/05/2022 04:42:31 10/07/19 15 colonoscopy completed Not Available [facility] 04/05/2022 04:42:31 Imaging Results None recorded. Procedure Notes None recorded. Medical Equipment None Reported. Allergies Allergen ID Allergen Name Allergen Category Reaction Reaction Severity Criticality Documentation Date Start Date Code Code System Note Provider Name and Address Organization Details Recorded Time 7899 doxycycli ne Not available Not available Not available Not available 04/05/2022 3640 RxNorm Not Available [facility] 3 05:03:11 7900 Augmentin medicatio n vomiting Not available Not available 04/05/20222017 47862 2 RxNorm Not Available [facility] 3 05:03:11 7902 amoxicill in medicatio n Not available Not available Not available 04/05/2022 723 RxNorm Not Available [facility] 3 05:03:11 Medications Name Sig Start Date [...] as directed . 10/02 completed Internal note: [facility]#[id number] 1Externa l note: [id number], , 07 Not Available Not Available Not [...] mometason e 50 mcg/actua tion nasal spray [place] 2 sprays every day by intranas al [...] % 99 /min 16 /min 98 [degF] 879099. 2 g 132 mm[Hg] 90 mm[Hg] Not Available [facility] 3 04:49:12 Date Recorded Body height Body temperature Body mass index (BMI) Body weight Respiratory rate Oxygen saturation Oxygen saturation in Arterial blood by Pulse oximetry Heart rate Systolic blood pressure Diastolic blood pressure Provider Name and Address Organization Details Last Updated DateTime 3 170.18 cm 97.2 [degF] 48.7 kg/m2 343082. 23 g 16 /min 97 % 97 % 75 /min 128 mm[Hg] 80 mm[Hg] MASON Siegel [place] - [place] [employer] [facility] 3 15:45:31 Date Recorded Body mass index (BMI) Body height Oxygen saturation Oxygen saturation in Arterial blood by Pulse oximetry Heart rate Body temperature Body weight Systolic blood pressure Diastolic blood pressure Provider Name and Address Organization Details Last Updated DateTime 2 48.7 kg/m2 170.18 cm 97 % 97 % 85 /min 97.3 [degF] 279874. 23 g 120 mm[Hg] 74 mm[Hg] Not Available [facility] 3 04:49:13 Date Recorded Body mass index (BMI) Body height Oxygen saturation Oxygen saturation in Arterial blood by Pulse oximetry Heart rate Body temperature Body weight Systolic blood pressure Diastolic blood pressure Provider Name and Address Organization Details Last Updated DateTime 1 45.6 kg/m2 170.18 cm 98 % 98 % 69 /min 97.7 [degF] 585614. 82 g 130 mm[Hg] 80 mm[Hg] Not Available [facility] 3 04:49:12 Date Recorded Body mass index (BMI) Body height Oxygen saturation Oxygen saturation in Arterial blood by Pulse oximetry Heart rate Body temperature Body weight Systolic blood pressure Diastolic blood pressure Provider Name and Address Organization Details Last Updated DateTime 1 48.5 kg/m2 170.18 cm 97 % 97 % 110 /min 97.6 [degF] 465728. 2 g 130 mm[Hg] 80 mm[Hg] Not Available [facility] 3 04:49:12 Social History Question Answer Notes LastModified by [employer] Details LastModified Time Tobacco Smoking Status Former Smoker Not Available [facility] 04/05/2022 04:41:41 What Is Your Level Of Caffeine Consumption? Heavy [id number].[id number] 026 Information not available 04/05/2022 How Much Tobacco Do You Chew? None MIGRATION.[id number] 026 Information not available 04/05/2022 In The 14 Days Before Symptom Onset, Have You Had Close Contact With A Laboratory-confirm ed COVID-19 While That Case Was Ill? No [id number].[id number] 026 Information not available 04/05/2022 In The 14 Days Before Symptom Onset, Have You Had Close Contact With A Person Who Is Under Investigation For COVID-19 While That Person Was Ill? No MIGRATION.[id number] 026 Information not available 04/05/2022 What Type Of Diet Are You Following? REGULAR MIGRATION.2834055 026 Information not available 04/05/2022 Which Illicit Or Recreational Drugs Have You Used? None MIGRATION.4705619 026 Information not available 04/05/2022 Have There Been Any Changes To Your Family Or Social Situation? No MIGRATION.7823269 026 Information not available 04/05/2022 Are There Any Guns Present In Your Home? No MIGRATION.4856954 026 Information not available 04/05/2022 Do You Use Insect Repellent Routinely? No MIGRATION.[id number] 026 Information not available 04/05/2022 What Was The Date Of Your Most Recent Tobacco Screening? 09/16/2021 MIGRATION.[id number] 026 Information not available 04/05/2022 What Is Your Relationship Status? MIGRATION.[id number] 026 Information not available 04/05/2022 Do You Use Your Seat Belt Or Car Seat Routinely? Yes MIGRATION.[id number] 026 Information not available 04/05/2022 Do You Have Smoke And Carbon Monoxide Detectors In Your Home? Yes MIGRATION.9214108 026 Information not available 04/05/2022 How Much Tobacco Do You Smoke? 1 PPW MIGRATION.5808677 026 Information not available 04/05/2022 Do You Use Sunscreen Routinely? Yes MIGRATION.8134754 026 Information not available 04/05/2022 Have You Recently Traveled Abroad? No MIGRATION.2794736 026 Information not available 04/05/2022 Do You Have Any Dietary Restrictions? No MIGRATION.6847228 026 Information not available 04/05/2022 Sex: Unknown Functional Status Question Answer Note LastModified by Organizat ion Details LastModified Time Do you use any illicit or recreational drugs? No MIGRATION.363701 7706 Information not available 04/05/2022 Do you or have you ever used any other forms of tobacco or nicotine? No MIGRATION.916696 4563 Information not available 04/05/2022 What is your level of alcohol consumption? Occasional MIGRATION.264285 0864 Information not available 04/05/2022 Are you currently employed? 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 Occasional MIGRATION.925092 2067 Information not available 04/05/2022 Mental Status None recorded. Family History Relationship Description Onset Age of this Age Resolved Age Notes LastModified by Organization Details LastModified Time Mother Gastroesopha geal reflux disease MIGRATION.041 [id number] Not available 04/05/2022 04:42:37 Father Migraine MIGRATION.768 [id number] Not available 04/05/2022 04:42:37 Sister Malignant melanoma MIGRATION.572 [id number] Not available 04/05/2022 04:42:37 Sister Multiple sclerosis MIGRATION.491 [id number] Not available 04/05/2022 04:42:37 Sister Malignant neoplasm of skin MIGRATION.905 [id number] Not available 04/05/2022 04:42:37 Medical History Condition Response HEADACHES/MIGRAINES Y KIDNEY STONES Y DIZZINESS Y SLEEP APNEA Y SKIN PROBLEMS Y HEARTBURN / REFLUX Y Deficiency Y HIGH CHOLESTEROL / HYPERLIPIDEMIA Y EYE PROBLEMS Y CARDIAC ARRHYTHMIA Y OBESITY Y URINARY/BLADDER/KIDNEY PROBLEMS Y BOWEL PROBLEMS Y BACK / NECK PROBLEMS Y Gynecological History Statement/Question Response Abnormal Pap Y Date of Last Pap 02/06/2016 Date of Last Mammogram 05/21/2021 Date of Last Colonoscopy 06/05/2018 Sexually Active? Y Obstetrics History GPAL:G 0 P 0 0 0 0 Immunizations Vaccine Type Date Status Note Provider Nam e and Address Organization Details Recorded Time HPV, unspecified formulation 1 completed Not Available [facility] 04/05/2022 05:02:56 COVID-19, mRNA, LNP-S, PF, 100 mcg/0.5mL dose or 50 mcg/0.25mL dose 1 completed Not Available [facility] 04/05/2022 05:02:57 COVID-19, mRNA, LNP-S, PF, 100 mcg/0.5mL dose or 50 mcg/0.25mL dose 1 completed Not Available [facility] 04/05/2022 05:02:57 influenza, unspecified formulation 6 completed Not Available [facility] 04/05/2022 05:02:57 Past Encounters Encounter ID Performer Location Encounter Start Date Encounter Closed Date Diagnosis/Indication Diagnosis SNOMED-CT Code Diagnosis ICD10 Code Diagnosis Note [id number] MONROE Loera [facility] [place] [address] [place] [address] 05/24/2020 00:00:00 06/04/2020 20:56:28 [id number] MONROE Loera [facility] [place] [address] [place] [address] 10/22/2020 00:00:00 10/24/2020 16:38:56 [id number] MONROE Loera [facility] [place] [address] [place] [address] 12/24/2020 00:00:00 01/04/2021 23:50:16 [id number] MONROE Loera [facility] [place] [address] [place] [address] 05/05/2021 00:00:00 05/05/2021 12:15:21 [id number] Zac Vasques MD [facility] [place] [address] [place] [address] 09/16/2021 00:00:00 10/02/2021 23:43:45 [id number] MONROE Loera [facility] [place] [address] [place] [address] 08/09/2022 15:31:25 08/09/2022 16:09:27 Kidney stone 00278827 N20.0 following up with Urology. Candidiasis of vagina 72 914298 B37.31 rx for diflucan course Impaired g lucose tolerance 1465982 R73.03 due for A1c lab Hyperlipidemia 65432991 E78.5 due for fasting lipids Thyroid di sorder screening 322777520 Z13.29 thyroid labs due Vitamin D deficiency 347 81160 E55.9 vit D lab due Long-term drug therapy 222623139 Z79.899 cbc and cmp repeat ordered. Health Concerns Section Related Observation LastModified by Organization Detai ls LastModified Time None Recorded Concern Status LastModified by Organization Details LastModified Time None Recorded Advance Directives Directive None Recorded Payers Encounter Date Sequence Insurance Name Policy Number Policy Conklin Covered Member ID Conklin Member ID Guarantor Name 08/09/2022 1 [employer] [id number] Linda Janeth Anita [id number] Linda Janeth Anita 08/09/2022 2 [facility] (POS II) [id number] Christopher Anita [id number] Linda Janeth Anita Notes Date Note Type [...] Aggravating factors:eating Associated Symptoms:abdominal pain;diarrhea;heartburn Not Available OR [facility] 10/24/2020 16:38:56 1 text/html NeckReported bypatient.Location:bila teral [...] bridge her to that procedure Not Available OR [facility] 01/04/2021 23:50:16 2 text/html Generic HPI TemplateReported [...] the day its worse. Right now its 08/14 that is a constant throbbing/burning pain. She does not recall anything recent that could have flared this back up. Not Available [employer] 05/05/2021 12:15:21 2 text/html Hip(s)Reported bypatient.Location:righ t Quality:aching; stabbing Aggravating Factors:sitting; twisting; bending/squatting; getting out of bed; going from sit to stand Associated Symptoms:no numbness; no tingling; no swelling; no redness; no warmth; no ecchymosis; no buckling; no grinding; no instability; no drainage; no fever; no chills; no weight loss; no change in bowel/bladder habits;weakness;catchin g/locking;popping/click ing;radiation down leg Not Available [employer] 10/02/2021 23:43:45 3 text/html Generic HPI TemplateReported [...] and would like an abx. MONROE Loera [address] [place] [address], [facility] [address], [place], [address], [employer] 09/04/2022 22:34:14 OBGyn Episode No OBEpisode recorded.
== END 2024-07-04 13:56 | disposition home or self-care (01) ==
PROVIDERS: PCP Physician Assistant; Visit Provider Nurse Practitioner Family
DX: M16.11 Unilateral primary osteoarthritis, right hip (principal)
CPT/HCPCS: 20610; 77002; J1010; Q9966

== ENCOUNTER 2024-11-25 14:05 | Outpatient (CLI) | payer OTHER, SELFPAY ==
--- NOTE | ~2024-11-25 | XR_ITS ---
EXAMINATION: XR lg joint inject/asp w image DATE: 11/25/2024 15:09 INDICATION: Primary osteoarthritis of the right hip presenting with pain. TECHNIQUE: A time-out was performed to verify the patient's name, date of , and procedure to be performed. The procedure including the risks, benefits, and alternatives was discussed with the patient. Risks discussed included bleeding and infection. The patient understood the risks and agreed to proceed. The skin overlying the right hip joint was prepped and draped in usual sterile fashion. Anesthetic was administered with 1% lidocaine subcutaneously. A 22 G needle was advanced under fluoroscopic guidance into the joint. Injection of 1 mL of Omnipaque 240 confirmed intra-articular position of the needle. Subsequently, injectate consisting of 3 mL of a 2:1 mixture of 0.5% bupivacaine: 80 mg/mL Depo-Medrol for a total dosage of 80 mg Depo-Medrol was instilled. Washout of contrast was seen confirming intra-articular administration. The needle was removed and the entry site was cleaned and dressed. There were no immediate complications. Fluoroscopy exposure time was 0.1 minutes. The total number of images was 1. FINDINGS: Real-time fluoroscopy demonstrates the needle and contrast in the right hip joint. Patient's pain prior to procedure:7/10. Patient's pain following the procedure: 0/10. IMPRESSION: 1. Successful right hip joint injection of local anesthetic and steroid with decrease in the patient's presenting pain. Reviewed, dictated and finalized at location A. IMPRESSION: 1. Successful right hip joint injection of local anesthetic and steroid with de crease in the patient's presenting pain.
--- OUTSIDE RECORDS SUMMARY | 2024-11-25 17:39 | XMS_ITS | Clinical Summary ---
Author Organization [facility] Address [address] [place] [address] Care Team Providers Care Cafeteria Cashier Name Role Phone Suni Quiroga Primary Care Pr ovider Allergies Active Allergy Reactions Criticality Noted Date [...] Cancer Screening-Mammogram 1979 Cervical Cancer Screening 1979 Colon Cancer Screening-Colonoscopy 1979 Depression Screening 1979 Hepatitis C Screening 1979 DTaP/Tdap/Td Vaccine (1 - Tdap) 09/09/1990 Varicella Vaccines (1 of 2 - 13+ 2-dose series) 09/09/1992 Hepatitis B Screening 09/09/1997 Regular Well Visit/Exam 18-64 09/09/1997 HPV Vaccines (1 - 3-dose SCD M series) 09/09/2006 Covid-19 Vaccine (2024-2 6 season) 2024 06/13/2021, 04/15/2020, 03/18/2020 Influenza Vaccine (#1) 2024 Pneumococcal vaccine <65 Aged Out No longer eligible based on patient's age to complete this topic Insurance Care Teams Cafeteria Cashier Relationship Specialty Start Date End Date Suni Quiroga PA [address] [place] [address] PCP - General Physician Curriculum And Assessment Coordinator 07/30/24
--- OUTSIDE RECORDS SUMMARY | 2024-11-25 17:39 | XMS_ITS | Encounter Summary ---
Author Organization [facility] Address [address] [facility] [place] [address] Care Team Providers Care Grit Blaster Name Role Phone Unavailable Primary Care Provider Unavailabl e Encounter Details Date Type Department Care Team (Late st Contact Info) Description 09/04/2023 Lab Requisition [facility] - DermPath Lab [address] [place] [id number] Roberto Zhao MD [facility] DERMATOLOGY [address] [place] [phone] Other seborrheic keratosis; Other disturbances of [...] AM CDT) Case Report Dermatopathology Report Case: [id number] Authorizing Provider: Roberto Zhao MD Collected: 09/04/2023 12:00 AM Ordering Location: [facility] - Received: 09/05/2023 12:52 PM [...] characteristic determined by the Dermatopathology Laboratory at [facility], directed by Dr. Robert Pritchett. These tests need not be, and therefore are not, approved by the [place] Food and Drug Administration. The tests are used for clinical purposes. Billing Codes Specimen Charges Stain Charges 31677 1 2:23 PM CDT DERMATOPATHOLOGY LABORATORY Embedded Images 2:23 PM CDT DERMATOPATHOLOGY LABORATORY Pathology/Cytolog y TISSUE SPECIMEN FROM SKIN / Unknown 09/04/2023 09/05/2023 12:52 PM CDT Roberto Zhao MD LAB - PATHOLOGY/CYTOLOGY ORDE TATY Final Result DERMATOPATHOLOGY LABORATORY [facility] - Department of Dermatology [facility] [address] [place] [address], [address] [phone] documented in this encounter Visit Diagnoses Diagnosis Other seborrheic keratosis Other disturbances of skin sensation documented in this encounter
--- OUTSIDE RECORDS SUMMARY | 2024-11-25 17:39 | XMS_ITS | Clinical Summary ---
Author Organization [facility] Address [address] [facility] [place] [address] Care Team Providers Care Allied Health Teacher Name Role Phone Unavailable Primary Care Provider Unavailabl e Source Comments [facility],non-owned Affiliates and Associated Physician Practices is amultiple site organization consisting of ambulatory clinics and hospital sitesin [place], [place], [place] and [place]. This disclosure is being madepursuant to the Care Everywhere program and may not contain all information available regarding this patient. Last updated 17.[facility] Allergies Active Allergy Reactions Criticality Noted Date Comments Augmentin Nausea and/or Vomiting 05/01/2017 Doxycycline Urticaria Medium 10/29/2015 Medications * Be aware that medications may not be up to date on this document. Alwaysverify current medications with the patient. vitamin D, ergocalciferol, (DRISDOL) 37042 UNITS capsule Take 50,000 Units by mouth [...] Health Maintenance Due Date Last Done Comments COLOGUARD (AGES 45-75) - COL ON CA SCREENING 1979 COLON MONITORING 1979 COLONOSCOPY - COLON CA SCREENING 1979 CT COLONOGRAPHY - COLON CA SCREENING 1979 Colorectal Cancer Screening 1979 FIT - COLON CA SCREENING 1979 FLEX SIG - COLON CA SCREENING 1979 LIPID TESTING 1979 MAMMOGRAM 1979 HIV SCREENING 09/09/1994 HEPATITIS C SCREENING 09/05/1997 DTAP/TDAP/TD VACCINES (1 - Tdap) 09/09/1998 HEPATITIS B VACCINE (1 of 3 - 19+ 3-dose series) 09/09/1998 PAP SMEAR 09/09/2000 HPV VACCINE (1 - 3-dose SCDM series) 09/09/2006 DEPRESSION SCREENING 02/06/2024 COVID-19 VACCINE (1 - 2023-2 5 season) 2024 INFLUENZA VACCINE (#1) 2024 ZOSTER VACCINE (1 of 2) 09/09/2029 [...]
--- OUTSIDE RECORDS SUMMARY | 2024-11-25 17:39 | XMS_ITS | Clinical Summary ---
Author Organization [facility] Address [facility] [place] [address] Care Team Providers Care Manager Money Name Role Phone Suni Quiroga Primary Care Provider [phone] Allergies Active Allergy Reactions Criticality Noted Date Comments Amoxicillin-Pot Clavulanate Nausea and Vomiting,Vomiting 04/04/2017 Doxycycline Hives Medium 10/29/2015 Sulfa Antibiotics Vomiting 11/28/2020 Medications rosuvastatin 10 MG tablet Take 1 tablet (10 mg total) by mouth every evening. 1 Active vitamin D2, ergocalciferol, (DRISDOL) 23976 UNITS capsule Take 1 capsule (1.25 mg [...] mg total) by mouth nightly. 3 Active famotidine (PEPCID) 20 MG tablet Take 2 tablets (40 mg total) by mouth every other day. Opposite day of omeprazole Active venlafaxine (EFFEXOR) 75 MG tablet Take 1 tablet (75 mg total) by mouth 2 (two) times daily with meals. Active Active Problems Problem Noted Date Diagnosed Date Acute appendicitis 09/03/2022 Nephrolithiasis 07/25/2022 Kidney stone 07/24/2022 Cervical radiculopathy 12/22/2020 Immunizations Immunization Administration Dates Next Due MODERNA COVID-19 (12+) [...] or ex-partner? No 09/03/2022 Social Connection and Isolation Panel Answer Date Recorded In a typical week, how many times do you talk on the phone with family, friends, or neighbors? More than three times a week 09/03/2022 How often do you get togethe r with friends or relatives? Three times a week 09/03/2022 How often do you attend chur or mandaen services? Never 09/03/2022 Do you belong to any clubs o r organizations such as presybeterian groups, unions, fraternal or athletic groups, or [...] and heating? Not hard at all 09/03/2022 [facility] [place] of Occupat ional Health - Occupational Stress [...] place to sleep or slept in a fdc (including now)? No 09/03/2022 Education Answer Date Recorded What is the highest level of school you have completed or the highest degree you have received? 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 [employer] Not on file Not on file Not on file Last Filed Vital Signs Vital Sign Reading Time Taken Comments Blood Pressure 144/71 08/14/2024 8:22 AM CDT Pulse 81 08/14/2024 8:22 AM CDT Temperature 36.5 C (97.7 F) 08/14/2024 8:22 AM CDT Respiratory Rate 18 08/14/2024 8:22 AM CDT Oxygen Saturation 98% 08/14/2024 8:22 AM CDT Inhaled Oxygen Concentration - - Weight 140.6 kg (310 lb) 08/14/2024 8:22 AM CDT Height 170.2 cm (5' 7) 08/14/2024 8:22 AM CDT Body Mass Index 48.55 08/14/2024 8:22 AM CDT Plan of Treatment Health Maintenance [...] - 3-dose SCD M series) 06/08/2020 05/11/2020 Colorectal Cancer Screening FIT/FOBT (1 Year) 09/09/2024 09/03/2022 COVID-19 Vaccine (3 - 5-2 6 season) 2024 04/15/2020, 03/18/2020 Influenza Adult (#1) 2024 02/05/2015 Mammogram Screening 08/03/2025 08/04/2023, 05/21/2021 Hepatitis A Vaccines Aged Out No long er eligible based on patient's age to complete this topic Meningococcal B Vaccine Aged Out No l onger eligible based on patient's age to complete this topic Meningococcal Vaccine Aged Out No angella tristan eligible based on patient's age to complete this topic Pneumococcal Vaccine: Pediatrics (0 to 5 Years) and At-Risk Patients (6 to 49 Years) Aged Out No longer eligible b [...] discharge from hospital Lifestyle No Lani Whittaker, [employer] Implanted Type Area Developing Machine Tender Device Identifier Shelf Expiration Date Model / Serial / Lot Stent Ureteral 6fr 28cm Pigtl Crv Taper Tip Bldr Mrk - [id number] Implanted:Qty : 1 on 09/03/2022 by Bryan Sandoval MD at [facility] Stent Right: Ureter [employer] [id number] 04/06/2025 [id number] 40 / / [id number] Stent Ureteral 6fr 26cm Pigtl Crv Taper Tip Bldr Mrk - [id number] Implanted:Qty : 1 on 09/08/2022 by Andi Espinoza MD at [facility] Stent Right: Ureter [employer] [id number] 04/23/2025 [id number] 30 / / [id number] Procedures Procedure Name Priority Date/Time Associated Diagnosis Comments MG SCREENING W DAGO LESLIE DIGI Routine 08/04/2023 3:07 PM CDT Screening breast examination OCCULT BLOOD, FECES Routine 09/03/2022 8 :20 AM CDT from Last 3 Months or Most Recently [...] PM CDT EXAMINATION: MG SCREENING W DAGO LESLIE DIGI INDICATIONS: Screening TECHNIQUE: Digital full field CC [...] asymmetry or architectural distortion. No axillary adenopathy. Mirtha Vargas MD MAMMO Final Res ult * OCCULT BLOOD, FECES (09/03/2022 8:20 AM CDT) OCCULT BLOOD FECAL NEGATIVE 09/03/2022 7:06 PM CDT [facility] STOOL SPECIMEN / Unknown 09/03/2022 8:20 AM CDT Wale Pearson MD BODY FLUIDS AND STOOLS ORDERABLE S Final Result [facility] [address] [place] [address], [place] [phone] from Last 3 Months or Most Recently Relevant to Health Maintenance Insurance [employer] Advance Directives * Full Code (Latest Code Status on File) Date Activated Date Inactivated Comments 09/03/2022 10:09 AM 09/04/2022 3:33 PM * Full Code Date Activated Date Inactivated Comments 07/25/2022 12:02 AM 07/25/2022 9:18 PM Care Teams Manager Money Relationship Specialty Start Date End Date Suni Quiroga PA PCP - General PHYSICIAN CALENDER [employer]LL PRESS OPERATOR 12/20/18
--- OUTSIDE RECORDS SUMMARY | 2024-11-25 17:39 | XMS_ITS | Data Portability ---
Author Organization [place] [facility] [employer], Main Office Address [address] [place] [address] Assessment No assessment recorded. Plan of Treatment [...] Orders fluconazole 150 mg tablet 2022 023 [place] [id number], [address], [place], [id number], 3 16:05:20 Patient TargetsNo targets recorded. Patient InstructionsNo instructions recorded. Reason for Referral None Reported. Results Created Date Observation Date Name Description Value Unit Range Abnormal Flag Note LastModifiedBy Organization Detail LastModifiedTime 10/23/19 21 10/25/2020 CULTU RE, URINE , ROUTI NE culture, urine, routine CULTU RE, URINE , ROUTI NE Micro Numbe r: [id number] Test Statu s: Final Speci men [...] Tube, is recom summer d. Not Available [facility] [address] [address] [place], [address], 10/25/2020 14:56:52 10/23/19 21 10/25/2020 INSUL IN [...] (dete veronica, gluli sine) . Not Available [facility] [address] [address] [place], [address], 10/25/2020 14:56:52 10/23/19 21 10/25/2020 REFLE XIVE URINE CULTU RE reflexive urine culture CULTU RE INDIC ATED - RESUL TS TO FOLLO W Not Available [facility] [address] [address] [place], [address], 10/25/2020 14:56:51 10/23/19 21 10/25/2020 URINA LYSIS , COMPL ETE W/REF ALCIRA TO CULTU RE color yellow yellow normal Not Available [address], [address], 10/25/2020 14:56:50 10/23/19 21 10/25/2020 URINA LYSIS , COMPL ETE W/REF ALCIRA TO CULTU RE appearance clear clear normal Not Available [address], [address], 10/25/2020 14:56:50 10/23/19 21 10/25/2020 URINA LYSIS , COMPL ETE W/REF ALCIRA TO CULTU RE specific gravity 1.028 1.001- 1.035 normal Not Available [address], [address], 10/25/2020 14:56:50 10/23/19 21 10/25/2020 URINA LYSIS , COMPL ETE W/REF ALCIRA TO CULTU RE pH 5.5 5.0-8. 0 normal Not Available [address], [address], 10/25/2020 14:56:50 10/23/19 21 10/25/2020 URINA LYSIS , COMPL ETE W/REF ALCIRA TO CULTU RE glucose negati ve negati ve normal Not Available [address], [address], 10/25/2020 14:56:50 10/23/19 21 10/25/2020 URINA LYSIS , COMPL ETE W/REF ALCIRA TO CULTU RE bilirubin negati ve negati ve normal Not Available [address], [address], 10/25/2020 14:56:50 10/23/19 21 10/25/2020 URINA LYSIS , COMPL ETE W/REF ALCIRA TO CULTU RE ketones negati ve negati ve normal Not Available [address], [address], 10/25/2020 14:56:50 10/23/19 21 10/25/2020 URINA LYSIS , COMPL ETE W/REF ALCIRA TO CULTU RE occult blood 3+ negati ve abnormal Not Available [address], [address], 10/25/2020 14:56:50 10/23/19 21 10/25/2020 URINA LYSIS , COMPL ETE W/REF ALCIRA TO CULTU RE protein 1+ negati ve abnormal Not Available [address], [address], 10/25/2020 14:56:50 10/23/19 21 10/25/2020 URINA LYSIS , COMPL ETE W/REF ALCIRA TO CULTU RE nitrite negati ve negati ve normal Not Available [address], [address], 10/25/2020 14:56:50 10/23/19 21 10/25/2020 URINA LYSIS , COMPL ETE W/REF ALCIRA TO CULTU RE leukocyte esterase 1+ negati ve abnormal Not Available [address], [address], 10/25/2020 14:56:50 10/23/19 21 10/25/2020 URINA LYSIS , COMPL ETE W/REF ALCIRA TO CULTU RE WBC 10-20 /hpf < or = 5 abnormal Not Available [address], [address], 10/25/2020 14:56:50 10/23/19 21 10/25/2020 URINA LYSIS , COMPL ETE W/REF ALCIRA TO CULTU RE RBC 10-20 /hpf < or = 2 abnormal Not Available [address], [address], 10/25/2020 14:56:50 10/23/19 21 10/25/2020 URINA LYSIS , COMPL ETE W/REF ALCIRA TO CULTU RE squamous epithelial cells 0-5 /hpf < or = 5 Not Available [address], [address], 10/25/2020 14:56:50 10/23/19 21 10/25/2020 URINA LYSIS , COMPL ETE W/REF ALCIRA TO CULTU RE bacteria none seen /hpf none seen normal Not Available [address], [address], 10/25/2020 14:56:50 10/23/19 21 10/25/2020 URINA LYSIS , COMPL ETE W/REF ALCRIA TO CULTU RE hyaline cast none seen /lpf none seen normal Not Available [address], [address], 10/25/2020 14:56:50 10/23/19 21 10/25/2020 CBC (INCL UDES DIFF/ PLT) white blood cell count 9.8 thous and/u L 3.8-10 .8 normal Not Available [address], [address], 10/25/2020 14:56:49 10/23/19 21 10/25/2020 CBC (INCL UDES DIFF/ PLT) red blood cell count 4.88 melisa on/uL 3.80-5 .10 normal Not Available [address], [address], 10/25/2020 14:56:49 10/23/19 21 10/25/2020 CBC (INCL UDES DIFF/ PLT) hemoglobin 12.8 g/dL 11.7-1 5.5 normal Not Available [address], [address], 10/25/2020 14:56:49 10/23/19 21 10/25/2020 CBC (INCL UDES DIFF/ PLT) hematocrit 40.7 % 35.0-4 5.0 normal Not Available [facility] [address] [address] [address], [place], [address], 10/25/2020 14:56:49 10/23/19 21 10/25/2020 CBC (INCL UDES DIFF/ PLT) MCV 83.4 fL 80.0-1 00.0 normal Not Available [address], [address], 10/25/2020 14:56:49 10/23/19 21 10/25/2020 CBC (INCL UDES DIFF/ PLT) MCH 26.2 pg 27.0-3 3.0 low Not Available [facility] [address], [address], 10/25/2020 14:56:49 10/23/19 21 10/25/2020 CBC (INCL UDES DIFF/ PLT) MCHC 31.4 g/dL 32.0-3 6.0 low Not Available [address], [address], 10/25/2020 14:56:49 10/23/19 21 10/25/2020 CBC (INCL UDES DIFF/ PLT) RDW 13.7 % 11.0-1 5.0 normal Not Available [address], [address], 10/25/2020 14:56:49 10/23/19 21 10/25/2020 CBC (INCL UDES DIFF/ PLT) platelet count 295 thous and/u L 140-40 0 normal Not Available [address], [address], 10/25/2020 14:56:49 10/23/19 21 10/25/2020 CBC (INCL UDES DIFF/ PLT) MPV 11.1 fL 7.5-12 .5 normal Not Available [address], [address], 10/25/2020 14:56:49 10/23/19 21 10/25/2020 CBC (INCL UDES DIFF/ PLT) absolute neutrophils 6615 cells /uL 1500-7 800 normal Not Available [address], [address], 10/25/2020 14:56:49 10/23/19 21 10/25/2020 CBC (INCL UDES DIFF/ PLT) absolute lymphocytes 2479 cells /uL 850-39 00 normal Not Available [address], [address], 10/25/2020 14:56:49 10/23/19 21 10/25/2020 CBC (INCL UDES DIFF/ PLT) absolute monocytes 490 cells /uL 200-95 0 normal Not Available [address], [address], 10/25/2020 14:56:49 10/23/19 21 10/25/2020 CBC (INCL UDES DIFF/ PLT) absolute eosinophils 186 cells /uL 15-500 normal Not Available [address], [address], 10/25/2020 14:56:49 10/23/19 21 10/25/2020 CBC (INCL UDES DIFF/ PLT) absolute basophils 29 cells /uL 0-200 normal Not Available [address], [address], 10/25/2020 14:56:49 10/23/19 21 10/25/2020 CBC (INCL UDES DIFF/ PLT) neutrophils 67.5 % normal Not Available [address], [address], 10/25/2020 14:56:49 10/23/19 21 10/25/2020 CBC (INCL UDES DIFF/ PLT) lymphocytes 25.3 % normal Not Available [address], [address], 10/25/2020 14:56:49 10/23/19 21 10/25/2020 CBC (INCL UDES DIFF/ PLT) monocytes 5.0 % normal Not Available [address], [address], 10/25/2020 14:56:49 10/23/19 21 10/25/2020 CBC (INCL UDES DIFF/ PLT) eosinophils 1.9 % normal Not Available [address], [address], 10/25/2020 14:56:49 10/23/19 21 10/25/2020 CBC (INCL UDES DIFF/ PLT) basophils 0.3 % normal Not Available [address], [address], 10/25/2020 14:56:49 10/23/19 21 10/25/2020 T4, FREE T4, free 1.0 NG/dL 0.8-1. 8 normal Not Available [address], [address], 10/25/2020 14:56:48 10/23/19 21 10/25/2020 TSH TSH 1.91 mIU/L normal Refer ence Range > or = 20 Years 0.40- 4.50 Pregn naresh Range s First trime ster 0.26- 2.66 Secon d trime ster 0.55- 2.73 Third trime ster 0.43- 2.91 Not Available [address], [address], 10/25/2020 14:56:47 10/23/19 21 10/25/2020 LIPAS E lipase 12 U/L 7-60 normal Not Available [address], [address], 10/25/2020 14:56:46 10/23/19 21 10/25/2020 AMYLA SE amylase 25 U/L 21-101 normal Not Available [facility] [address] [place], [address], 10/25/2020 14:56:46 10/23/19 21 10/25/2020 VITAM IN [...] /MS is recom summer d: order code 96785 (freddy ents >2yrs ). See Note 1 Note 1 For addit ional infor mariam jaime refer to http: //[facility] guille Soto stDia gnost ics.c om/fa q/FAQ 199 (This link is being provi ded for infor jose l olivier/ valentin roper purpo ses only. ) Not Available [facility] [address] [place], [address], 10/25/2020 14:56:45 10/23/19 21 10/25/2020 HEMOG LOBIN A1C hemoglobin A1C 5.9 %_of_ total _HGB <5.7 high Not Available [facility] [address] [place], [address], 10/25/2020 14:56:44 10/23/19 21 10/25/2020 COMPR EHENS RAFAT METAB OLIC PANEL glucose 102 mg/dL 65-99 high Fasti ng refer ence inter eagle For someo ne witho ut known diabe angela, a gluco se value betwe en 100 and 125 mg/dL is consi stent with predi abete s and shoul d be confi rmed with a follo w-up test. Not Available [address], [address], 10/25/2020 14:56:43 10/23/19 21 10/25/2020 COMPR EHENS RAFAT METAB OLIC PANEL urea nitrogen (BUN) 11 mg/dL 7-25 normal Not Available [address], [address], 10/25/2020 14:56:43 10/23/19 21 10/25/2020 COMPR EHENS RAFAT METAB OLIC PANEL creatinine 0.73 mg/dL 0.50-1 .10 normal Not Available [address], [address], 10/25/2020 14:56:43 10/23/19 21 10/25/2020 COMPR EHENS RAFAT METAB OLIC PANEL eGFR non-afr. israeli 102 mL/mi n/1.7 3m2 > or = 60 normal Not Available [address], [address], 10/25/2020 14:56:43 10/23/19 21 10/25/2020 COMPR EHENS ARFAT METAB OLIC PANEL eGFR 119 mL/mi n/1.7 3m2 > or = 60 normal Not Available [address], [address], 10/25/2020 14:56:43 10/23/19 21 10/25/2020 COMPR EHENS RAFAT METAB OLIC PANEL BUN/creatini ne ratio not applic able (calc ) 6-22 Not Available [address], [address], 10/25/2020 14:56:43 10/23/19 21 10/25/2020 COMPR EHENS RAFAT METAB OLIC PANEL sodium 136 mmol/ L 135-14 6 normal Not Available [address], [place], [address], 10/25/2020 14:56:43 10/23/19 21 10/25/2020 COMPR EHENS RAFAT METAB OLIC PANEL potassium 4.1 mmol/ L 3.5-5. 3 normal Not Available [address], [address], 10/25/2020 14:56:43 10/23/19 21 10/25/2020 COMPR EHENS RAFAT METAB OLIC PANEL chloride 102 mmol/ L 98-110 normal Not Available [address], [address], 10/25/2020 14:56:43 10/23/19 21 10/25/2020 COMPR EHENS RAFAT METAB OLIC PANEL carbon dioxide 23 mmol/ L 20-32 normal Not Available [address], [address], 10/25/2020 14:56:43 10/23/19 21 10/25/2020 COMPR EHENS RAFAT METAB OLIC PANEL calcium 8.9 mg/dL 8.6-10 .2 normal Not Available [address], [address], 10/25/2020 14:56:43 10/23/19 21 10/25/2020 COMPR EHENS RAFAT METAB OLIC PANEL protein, total 7.0 g/dL 6.1-8. 1 normal Not Available [address], [address], 10/25/2020 14:56:43 10/23/19 21 10/25/2020 COMPR EHENS RAFAT METAB OLIC PANEL albumin 3.9 g/dL 3.6-5. 1 normal Not Available [address], [address], 10/25/2020 14:56:43 10/23/19 21 10/25/2020 COMPR EHENS RAFAT METAB OLIC PANEL globulin 3.1 g/dL_ (calc ) 1.9-3. 7 normal Not Available [address], [address], 10/25/2020 14:56:43 10/23/19 21 10/25/2020 COMPR EHENS RAFAT METAB OLIC PANEL albumin/glob ulin ratio 1.3 (calc ) 1.0-2. 5 normal Not Available [address], [address], 10/25/2020 14:56:43 10/23/19 21 10/25/2020 COMPR EHENS RAFAT METAB OLIC PANEL bilirubin, total 0.3 mg/dL 0.2-1. 2 normal Not Available [address], [address], 10/25/2020 14:56:43 10/23/19 21 10/25/2020 COMPR EHENS RAFAT METAB OLIC PANEL alkaline phosphatase 101 U/L 31-125 normal Not Available [address], [address], 10/25/2020 14:56:43 10/23/19 21 10/25/2020 COMPR EHENS RAFAT METAB OLIC PANEL AST 23 U/L 10-30 normal Not Available [address], [address], 10/25/2020 14:56:43 10/23/19 21 10/25/2020 COMPR EHENS RAFAT METAB OLIC PANEL ALT 27 U/L 6-29 normal Not Available [address], [address], 10/25/2020 14:56:43 10/23/19 21 10/25/2020 LIPID PANEL , STAND CHICA cholesterol, total 229 mg/dL <200 high Not Available [address], [address], 10/25/2020 14:56:42 10/23/19 21 10/25/2020 LIPID PANEL , STAND CHICA HDL cholesterol 37 mg/dL > or = 50 low Not Available [facility] [address] [place] [address], [address], 10/25/2020 14:56:42 10/23/19 21 10/25/2020 LIPID PANEL , STAND CHICA triglyceride s 206 mg/dL <150 high If a non-f astin g speci men was colle cted, consi eric repea t trigl yceri de testi ng on a fasti ng speci men if clini penelope indic ated. Norberto mendiola et al. J. of Clin. Lipid ol. 2015; 9:129 -169. Not Available [facility] [address] [place], [address], 10/25/2020 14:56:42 10/23/19 21 10/25/2020 LIPID PANEL [...] calcu lated using the Caron n-Hop kins asmitau linn n, which is a valid ated novel jose eddy accur acy than the Fried patricia equat ion in the estim ation of LDL-C . Caron fisher SS et al. GIGI. 2013; 310(1 9): 2061- 2068 (http ://ed ucati on.Qu Kasey Cloud Amenity. com/f aq/FA Q164) Not Available [facility] [address] [place], [address], 10/25/2020 14:56:42 10/23/19 21 10/25/2020 LIPID PANEL , STAND CHICA chol/HDLC ratio 6.2 (calc ) <5.0 high Not Available [address] [address] [place], [address], 10/25/2020 14:56:42 10/23/19 21 10/25/2020 LIPID PANEL , STAND CHICA non HDL cholesterol 192 mg/dL _(matthew c) <130 high For patie nts with diabe angela plus 1 major ASCVD risk facto r, treat ing to a non-H DL-C goal of <100 mg/dL (LDL- C of <70 mg/dL ) is consi dered a thera peuti c optio n. Not Available [address] [address] [place], [address], 10/25/2020 14:56:42 09/03/19 23 09/03/2022 LIPID PANEL , STAND CHICA cholesterol, total 196 mg/dL <200 normal Not Available [address] [address] [place], [address], 09/03/2022 12:31:18 09/03/19 23 09/03/2022 LIPID PANEL , STAND CHICA HDL cholesterol 44 mg/dL > or = 50 low Not Available [address], [address], 09/03/2022 12:31:18 09/03/19 23 09/03/2022 LIPID PANEL , STAND CHICA triglyceride s 219 mg/dL <150 high If a non-f astin g speci men was colle cted, consi eric repea t trigl yceri de testi ng on a fasti ng speci men if clini penelope indic ated. Norberto mendiola et al. J. of Clin. Lipid ol. 2015; 9:129 -169. Not Available [address], [address], 09/03/2022 12:31:18 09/03/19 23 09/03/2022 LIPID PANEL [...] 2061- 206 (http ://ed ucati on.Qu estDi Cloud Amenity. com/f aq/FA Q164) Not Available [facility] [address] [address] [place], [address], 09/03/2022 12:31:18 09/03/19 23 09/03/2022 LIPID PANEL , STAND CHICA chol/HDLC ratio 4.5 (calc ) <5.0 normal Not Available [address] [address] [address], [place], [address], 09/03/2022 12:31:18 09/03/19 23 09/03/2022 LIPID PANEL , STAND CHICA non HDL cholesterol 152 mg/dL _(matthew c) <130 high For patie nts with diabe angela plus 1 major ASCVD risk facto r, treat ing to a non-H DL-C goal of <100 mg/dL (LDL- C of <70 mg/dL ) is consi dered a thera peuti c optio n. Not Available [facility] [address] [address], [place], [address], 09/03/2022 12:31:18 09/03/19 23 09/03/2022 COMPR EHENS RAFAT METAB OLIC PANEL glucose 97 mg/dL 65-99 normal Fasti ng refer ence inter eagle Not Available [facility] [address] [address] [address], [place], [address], 09/03/2022 12:31:20 09/03/19 23 09/03/2022 COMPR EHENS RAFAT METAB OLIC PANEL urea nitrogen (BUN) 12 mg/dL 7-25 normal Not Available [address], [address], 09/03/2022 12:31:20 09/03/19 23 09/03/2022 COMPR EHENS RAFAT METAB OLIC PANEL creatinine 0.77 mg/dL 0.50-0 .99 normal Not Available [address], [address], 09/03/2022 12:31:20 09/03/19 23 09/03/2022 COMPR EHENS RAFAT METAB OLIC PANEL eGFR 99 mL/mi n/1.7 3m2 > or = 60 normal The eGFR is based on the CKD-E PI 2020 equat ion. To calcu late the new eGFR from a previ ous Creat inine or Cysta tin C resul t, go to https ://anthony monae.pamela reed/yoanna le s/ kdoqi /gfr% 5Fcal culat or Not Available [address], [address], 09/03/2022 12:31:20 09/03/19 23 09/03/2022 COMPR EHENS RAFAT METAB OLIC PANEL BUN/creatini ne ratio NOT APPLIC ABLE (calc ) 6-22 Not Available [address], [address], 09/03/2022 12:31:20 09/03/19 23 09/03/2022 COMPR EHENS RAAFT METAB OLIC PANEL sodium 140 mmol/ L 135-14 6 normal Not Available [address], [address], 09/03/2022 12:31:20 09/03/19 23 09/03/2022 COMPR EHENS RAFAT METAB OLIC PANEL potassium 4.4 mmol/ L 3.5-5. 3 normal Not Available [address] [place], [address], 09/03/2022 12:31:20 09/03/19 23 09/03/2022 COMPR EHENS RAFAT METAB OLIC PANEL chloride 102 mmol/ L 98-110 normal Not Available [address], [address], 09/03/2022 12:31:20 09/03/19 23 09/03/2022 COMPR EHENS RAFAT METAB OLIC PANEL carbon dioxide 28 mmol/ L 20-32 normal Not Available [address], [address], 09/03/2022 12:31:20 09/03/19 23 09/03/2022 COMPR EHENS RAFAT METAB OLIC PANEL calcium 9.2 mg/dL 8.6-10 .2 normal Not Available [address], [address], 09/03/2022 12:31:20 09/03/19 23 09/03/2022 COMPR EHENS RAFAT METAB OLIC PANEL protein, total 7.1 g/dL 6.1-8. 1 normal Not Available [address], [address], 09/03/2022 12:31:20 09/03/19 23 09/03/2022 COMPR EHENS RAFAT METAB OLIC PANEL albumin 4.1 g/dL 3.6-5. 1 normal Not Available [address], [address], 09/03/2022 12:31:20 09/03/19 23 09/03/2022 COMPR EHENS RAFAT METAB OLIC PANEL globulin 3.0 g/dL_ (calc ) 1.9-3. 7 normal Not Available [address], [address], 09/03/2022 12:31:20 09/03/19 23 09/03/2022 COMPR EHENS RAFAT METAB OLIC PANEL albumin/glob ulin ratio 1.4 (calc ) 1.0-2. 5 normal Not Available [address], [address], 09/03/2022 12:31:20 09/03/19 23 09/03/2022 COMPR EHENS RAFAT METAB OLIC PANEL bilirubin, total 0.3 mg/dL 0.2-1. 2 normal Not Available [address] [address] [place], [address], 09/03/2022 12:31:20 09/03/19 23 09/03/2022 COMPR EHENS RAFAT METAB OLIC PANEL alkaline phosphatase 127 U/L 31-125 high Not Available [facility] [address] [address] [place], [address], 09/03/2022 12:31:20 09/03/19 23 09/03/2022 COMPR EHENS RAFAT METAB OLIC PANEL AST 56 U/L 10-30 high Not Available [address], [address], 09/03/2022 12:31:20 09/03/19 23 09/03/2022 COMPR EHENS RAFAT METAB OLIC PANEL ALT 52 U/L 6-29 high Not Available [address], [address], 09/03/2022 12:31:20 09/03/19 23 09/03/2022 HEMOG LOBIN [...] Curre ntly, no conse nsus exist s becky garza use of hemog lobin A1c for diagn osis of diabe angela for child chepe. Not Available [facility] [address] [place], [address], 09/03/2022 12:31:21 09/03/19 23 09/03/2022 VITAM IN [...] /MS is recom summer d: order code 31187 (freddy ents >2yrs ). See Note 1 Note 1 For addit ional infor mariam jaime refer to http: //grecia fisher.Bishnu stDia gnost ics.c om/fa q/FAQ 199 (This link is being provi ded for infor jose l olivier/ educkerrie roper purpo ses only. ) Not Available [facility] [address] [address], [place], [address], 09/03/2022 12:31:21 09/03/19 23 09/03/2022 TSH TSH 2.28 mIU/L normal Refer ence Range > or = 20 Years 0.40- 4.50 Pregn naresh Range s First trime ster 0.26- 2.66 Secon d trime ster 0.55- 2.73 Third trime ster 0.43- 2.91 Not Available [address], [address], 09/03/2022 12:31:22 09/03/19 23 09/03/2022 T4, FREE T4, free 0.9 NG/dL 0.8-1. 8 normal Not Available [address], [address], 09/03/2022 12:31:23 09/03/19 23 09/03/2022 CBC (INCL UDES DIFF/ PLT) white blood cell count 9.2 thous and/u L 3.8-10 .8 normal Not Available [address], [address], 09/03/2022 12:31:23 09/03/19 23 09/03/2022 CBC (INCL UDES DIFF/ PLT) red blood cell count 4.82 melisa on/uL 3.80-5 .10 normal Not Available [address], [address], 09/03/2022 12:31:23 09/03/19 23 09/03/2022 CBC (INCL UDES DIFF/ PLT) hemoglobin 12.6 g/dL 11.7-1 5.5 normal Not Available [address], [address], 09/03/2022 12:31:23 09/03/19 23 09/03/2022 CBC (INCL UDES DIFF/ PLT) hematocrit 40.1 % 35.0-4 5.0 normal Not Available [address], [address], 09/03/2022 12:31:23 09/03/19 23 09/03/2022 CBC (INCL UDES DIFF/ PLT) MCV 83.2 fL 80.0-1 00.0 normal Not Available [address], [address], 09/03/2022 12:31:23 09/03/19 23 09/03/2022 CBC (INCL UDES DIFF/ PLT) MCH 26.1 pg 27.0-3 3.0 low Not Available [address], [address], 09/03/2022 12:31:23 09/03/19 23 09/03/2022 CBC (INCL UDES DIFF/ PLT) MCHC 31.4 g/dL 32.0-3 6.0 low Not Available [address], [address], 09/03/2022 12:31:23 09/03/19 23 09/03/2022 CBC (INCL UDES DIFF/ PLT) RDW 14.1 % 11.0-1 5.0 normal Not Available [address], [address], 09/03/2022 12:31:23 09/03/19 23 09/03/2022 CBC (INCL UDES DIFF/ PLT) platelet count 249 thous and/u L 140-40 0 normal Not Available [address], [address], 09/03/2022 12:31:23 09/03/19 23 09/03/2022 CBC (INCL UDES DIFF/ PLT) MPV 10.9 fL 7.5-12 .5 normal Not Available [address], [address], 09/03/2022 12:31:23 09/03/19 23 09/03/2022 CBC (INCL UDES DIFF/ PLT) absolute neutrophils 6017 cells /uL 1500-7 800 normal Not Available [address], [address], 09/03/2022 12:31:23 09/03/19 23 09/03/2022 CBC (INCL UDES DIFF/ PLT) absolute lymphocytes 2429 cells /uL 850-39 00 normal Not Available [address], [address], 09/03/2022 12:31:23 09/03/19 23 09/03/2022 CBC (INCL UDES DIFF/ PLT) absolute monocytes 451 cells /uL 200-95 0 normal Not Available [address], [address], 09/03/2022 12:31:23 09/03/19 23 09/03/2022 CBC (INCL UDES DIFF/ PLT) absolute eosinophils 258 cells /uL 15-500 normal Not Available [address], [address], 09/03/2022 12:31:23 09/03/19 23 09/03/2022 CBC (INCL UDES DIFF/ PLT) absolute basophils 46 cells /uL 0-200 normal Not Available [facility] [address], [address], 09/03/2022 12:31:23 09/03/19 23 09/03/2022 CBC (INCL UDES DIFF/ PLT) neutrophils 65.4 % normal Not Available [address], [address], 09/03/2022 12:31:23 09/03/19 23 09/03/2022 CBC (INCL UDES DIFF/ PLT) lymphocytes 26.4 % normal Not Available [facility] [address], [address], 09/03/2022 12:31:23 09/03/19 23 09/03/2022 CBC (INCL UDES DIFF/ PLT) monocytes 4.9 % normal Not Available [facility] [address] [address] [place], [address], 09/03/2022 12:31:23 09/03/19 23 09/03/2022 CBC (INCL UDES DIFF/ PLT) eosinophils 2.8 % normal Not Available [facility] [address] [place], [address], 09/03/2022 12:31:23 09/03/19 23 09/03/2022 CBC (INCL UDES DIFF/ PLT) basophils 0.5 % normal Not Available [facility] [address] [place], [address], 09/03/2022 12:31:23 05/24/19 22 05/21/2021 XR, shoul eric No observ ation record ed. [id number] [facility] [address] [facility], [place], [address], 04/05/2022 05:03:39 05/28/19 22 05/21/2021 MAMMO , scree darshana, digit al, bilat eral No observ ation record ed. [id number] [facility] [place] [address] [facility], [place], [address], 04/05/2022 05:03:39 09/21/19 22 09/19/2021 XR, hip, unila teral No observ ation record ed. MIGRATION. [id number] [address], [place], [address], 04/05/2022 05:03:39 02/13/19 23 01/06/2022 imagi ng/di agnos tic resul t No observ ation record ed. [id number] [facility] [address] [facility], [place], [address], 04/05/2022 05:03:39 02/27/19 23 02/27/2022 CT, abdom en + pelvi s, w/o contr ast No observ ation record ed. [id number] Not Available 04/05/2022 05:03:39 03/02/19 23 01/24/2022 upper endos copy proce dure (EGD) (PROC ) No observ ation record ed. [id number] Raudel Boyd MD [address] [place], [address], 04/05/2022 05:03:39 03/05/19 24 02/21/2022 colon oscop y scree darshana (PROC ) No observ ation record ed. [email or web address] [facility] [address] [place], [address], 03/05/2023 11:26:31 Result Notes None recorded. Problems Name Problem SNOMED Code Status Onset Date Resolution Date Notes Provider Name and Address Organization Details Recorded Time Gastroesop hageal reflux disease [id number] Active 2018 Not Available [facility] [facility] 3 04:52:05 Hyperlipid emia 85410259 Active 2018 Not Available [facility] 3 04:52:05 Obstructiv e sleep apnea syndrome 55887128 Active 2018 Not Available [facility] 3 04:52:06 Seasonal allergic rhinitis 617064899 Active 2020 Not Available [facility] 3 04:52:05 Vitamin D deficiency 28344929 Active 2020 Not Available [facility] 3 04:52:05 Long-term drug therapy Active 2021 Not Available [facility] 3 04:52:05 Pain of left shoulder joint 5856106288534 9109 Active 2021 Not Available [facility] 3 04:52:04 Cervical radiculopa thy 33609155 Active 2021 Not Available [facility] 3 04:52:05 Degenerati on of cervical interverte bral disc 67035446 Active 2021 Not Available [facility] 3 04:52:05 Pain of right hip joint 3147763951513 02 Active 2021 Not Available [facility] 3 04:52:05 Trochanter ic bursitis of right hip 2747006868825 00 Active 2021 Not Available [facility] 3 04:52:05 Pain of hip region 33513897 Active 2021 Not Available [facility] 3 04:52:05 Kidney stone 89553264 Active 2022 MONROE Loera [address], [address], [place], [address] , [employer] 3 15:52:05 Candidiasi s of vagina 46312251 Active 2022 MONROE Loera [address], [place], [address] , [employer] 3 15:52:09 Impaired glucose tolerance 1000795 Active 2022 MONROE Loera [address], [place], [address] , [employer] 3 16:05:49 Mixed hyperlipid emia 305154817 Active 2023 MONROE Loera [address], [place], [address] , [employer] 4 15:00:16 Problem Notes None recorded. Procedures Surgical History Date Name Laterality Status Provider Name and Address Organization Details Recorded Time 02/05/19 21 Removal of ovary(s) completed Not Available [facility] 04/05/2022 04:42:31 06/06/19 19 Date of Last Colonoscopy completed Not Available [facility] 04/05/2022 04:42:29 06/06/19 18 Cholecystectomy completed Not Available [facility] 04/05/2022 04:42:31 02/14/19 17 Carpal tunnel surgery completed Not Available [facility] 04/05/2022 04:42:31 10/07/19 15 colonoscopy completed Not Available [facility] 04/05/2022 04:42:31 Imaging Results None [...] n vomiting Not available Not available 04/05/20222017 02848 2 RxNorm Not Available [facility] 3 05:03:11 [...] as directed . 10/02 completed Internal note: [facility]#[id number] 1Externa l note: [id number], , 07 Not Available Not Available Not Available hydrocort isone-pra moxine 2.5 %-1 % rectal cream Insert 1 applicat ion 3 times a day by rectal route as directed . 10/02 completed Not Available Not Available Not Available triazolam 0.25 mg tablet TAKE 1 TABLET BY MOUTH 1 HOUR PRIOR TO APPT 03/31 /2022 completed Not Available Not Available Not Available [...] mometason e 50 mcg/actua tion nasal spray [place] 2 sprays every day by intranas al [...] Respiratory rate Body temperature Body weight Systolic And Diastolic Provider Name and Address Organization Details Last Updated DateTime 2 48.5 kg/m2 170.18 cm 98 % 98 % 99 /min 16 /min 98 [degF] 910494. 2 g 132/90 mm[Hg] Not Available [facility] 3 04:49:12 Date Recorded Body height Body temperature Body mass index (BMI) Body weight Respiratory rate Oxygen saturation Oxygen saturation in Arterial blood by Pulse oximetry Heart rate Systolic And Diastolic Provider Name and Address Organization Details Last Updated DateTime 3 170.18 cm 97.2 [degF] 48.7 kg/m2 571899. 23 g 16 /min 97 % 97 % 75 /min 128/80 mm[Hg] MASON Siegel [place] [facility] [employer] [facility] 3 15:45:31 Date Recorded Body mass index (BMI) Body height Oxygen saturation Oxygen saturation in Arterial blood by Pulse oximetry Heart rate Body temperature Body weight Systolic And Diastolic Provider Name and Address Organization Details Last Updated DateTime 2 48.7 kg/m2 170.18 cm 97 % 97 % 85 /min 97.3 [degF] 363686. 23 g 120/74 mm[Hg] Not Available [facility] 3 04:49:13 Date Recorded Body mass index (BMI) Body height Oxygen saturation Oxygen saturation in Arterial blood by Pulse oximetry Heart rate Body temperature Body weight Systolic And Diastolic Provider Name and Address Organization Details Last Updated DateTime 1 45.6 kg/m2 170.18 cm 98 % 98 % 69 /min 97.7 [degF] 441240. 82 g 130/80 mm[Hg] Not Available [facility] 3 04:49:12 Date Recorded Body mass index (BMI) Body height Oxygen saturation Oxygen saturation in Arterial blood by Pulse oximetry Heart rate Body temperature Body weight Systolic And Diastolic Provider Name and Address Organization Details Last Updated DateTime 1 48.5 kg/m2 170.18 cm 97 % 97 % 110 /min 97.6 [degF] 100629. 2 g 130/80 mm[Hg] Not Available [facility] 3 04:49:12 Social History Question Answer Notes LastModified by Organizat ion Details LastModified Time Tobacco Smoking Status Former Smoker Not Available [facility] 04/05/2022 04:41:41 What Is Your Level Of Caffeine Consumption? Heavy [id number] [id number] Information not available 04/05/2022 How Much Tobacco Do You Chew? None MIGRATION.[id number] 026 Information not available 04/05/2022 In The 14 Days Before Symptom Onset, Have You Had Close Contact With A Laboratory-confirm ed COVID-19 While That Case Was Ill? No [id number].[id number] 026 Information not available 04/05/2022 In The 14 Days Before Symptom Onset, Have You Had Close Contact With A Person Who Is Under Investigation For COVID-19 While That Person Was Ill? No [id number].[id number] 026 Information not available 04/05/2022 What Type Of Diet Are You Following? REGULAR MIGRATION.[id number] 026 Information not available 04/05/2022 Which Illicit Or Recreational Drugs Have You Used? None MIGRATION.[id number] 026 Information not available 04/05/2022 Have There Been Any Changes To Your Family Or Social Situation? No MIGRATION.[id number] 026 Information not available 04/05/2022 Are There Any Guns Present In Your Home? No MIGRATION.[id number] 026 Information not available 04/05/2022 Do You Use Insect Repellent Routinely? No MIGRATION.[id number] 026 Information not available 04/05/2022 What Was The Date Of Your Most Recent Tobacco Screening? 09/16/2021 [id number] 026 Information not available 04/05/2022 What Is Your Relationship Status? MIGRATION.[id number] 026 Information not available 04/05/2022 Do You Use Your Seat Belt Or Car Seat Routinely? Yes MIGRATION.[id number] 026 Information not available 04/05/2022 Do You Have Smoke And Carbon Monoxide Detectors In Your Home? Yes MIGRATION.[id number] 026 Information not available 04/05/2022 How Much Tobacco Do You Smoke? 1 PPW MIGRATION.6099721 026 Information not available 04/05/2022 Do You Use Sunscreen Routinely? Yes MIGRATION.0086355 026 Information not available 04/05/2022 Have You Recently Traveled Abroad? No MIGRATION.6100128 026 Information not available 04/05/2022 Do You Have Any Dietary Restrictions? No MIGRATION.0421164 026 Information not available 04/05/2022 Sex: Unknown Functional Status Question Answer Note LastModified by Organizat ion Details LastModified Time Do you use any illicit or recreational drugs? No MIGRATION.[id number] 7837 Information not available 04/05/2022 Do you or have you ever used any other forms of tobacco or nicotine? No MIGRATION.674205 9265 Information not available 04/05/2022 What is your level of alcohol consumption? Occasional MIGRATION.481089 8361 Information not available 04/05/2022 Are you currently employed? 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 Occasional MIGRATION.854001 5101 Information not available 04/05/2022 Mental Status None recorded. Family History Relationship Description Onset Age of this Age Resolved Age Notes LastModified by Organization Details LastModified Time Mother Gastroesopha geal reflux disease MIGRATION.177 [id number] Not available 04/05/2022 04:42:37 Father Migraine MIGRATION.074 [id number] Not available 04/05/2022 04:42:37 Sister Malignant melanoma MIGRATION.104 [id number] Not available 04/05/2022 04:42:37 Sister Multiple sclerosis MIGRATION.808 [id number] Not available 04/05/2022 04:42:37 Sister Malignant neoplasm of skin MIGRATION.350 [id number] Not available 04/05/2022 04:42:37 Medical History Condition [...] Diagnosis SNOMED-CT Code Diagnosis ICD10 Code Diagnosis IMO Codes Diagnosis Note [id number] MONROE Loera [facility] [address] [place] [address] 05/24/2020 00:00:00 06/04/2020 20:56:28 [id number] MONROE Loera [facility] [address] [place] [address] 10/22/2020 00:00:00 10/24/2020 16:38:56 [id number] MONROE Loera [facility] [address] [place] [address] 12/24/2020 00:00:00 01/04/2021 23:50:16 [id number] MONROE Loera [facility] [address] [place] [address] 05/05/2021 00:00:00 05/05/2021 12:15:21 [id number] Zac Vasques MD [facility] [address] [place] [address] 09/16/2021 00:00:00 10/02/2021 23:43:45 [id number] MONROE Loera [facility] [place] [address] [place] [address] 08/09/2022 15:31:25 08/09/2022 16:09:27 Kidney stone 96347276 N20.0 following up with Urology. Candidiasis of vagina 72 853584 B37.31 rx for diflucan course Impaired g lucose tolerance 2657565 R73.03 due for A1c lab Hyperlipidemia 38859810 E78.5 due for fasting lipids Thyroid di sorder screening 985593281 Z13.29 thyroid labs due Vitamin D deficiency 347 13799 E55.9 vit D lab due Long-term drug therapy 791703219 Z79.899 cbc and cmp repeat ordered. Health Concerns Section Related Observation LastModified by Organization Detai ls LastModified Time None Recorded Concern Status LastModified by Organization Details LastModified Time None Recorded Advance Directives Directive None Recorded Payers Insurance Date Sequence Insurance Name Policy Number Policy Conklin Covered Member ID Conklin Member ID Guarantor Name 09/07/2022 1 [employer] - FCE BENEFITS (PPO) [id number] Linda Janeth Anita [id number] Linda Janeth Anita 09/06/2022 1 [employer] [id number] Linda Janeth Anita [id number] Linda Janeth Anita 09/06/2022 2 [facility] (POS II) [id number] Christopher Anita [id number] Linda Janeth Anita 09/05/2022 3 [facility] [place] - [place]MO[place] Linda Anita [id number] Linda Janeth Anita 09/05/2022 3 [facility] Linda Anita [id number] Linda Janeth Anita Notes Date Note Type Note Provider Name and Address Organization Details Recorded Time 08/09/2022 text/html Generic HPI TemplateReported by PatientPt is here for an e/r f/u from [...] would like an abx. MONROE Loera [address] [facility] [facility] [address], [place], [address], [place] [facility] 09/04/2022 22:34:14 OBGyn Episode No OBEpisode recorded.
== END 2024-11-25 14:06 | disposition home or self-care (01) ==
PROVIDERS: PCP Physician Assistant; Visit Provider Nurse Practitioner Family
DX: M16.11 Unilateral primary osteoarthritis, right hip (principal)
CPT/HCPCS: 20610; 77002; J1010; Q9966